=== PATIENT | female | born 1945 | race Caucasian/White ===

== ENCOUNTER 2017-04-28 16:51 | Observation (INO) | payer MEDICARE, BC ==
[2017-04-28] MEDS ORDERED: Sodium Chloride 0.9% 1,000 ML IV ONE (17:08)
--- NOTE | 2017-04-28 17:23 | EDM.PDOC ---
ED HPI GENERAL MEDICAL PROBLEM - General Chief Complaint: Neurological Problem Stated Complaint: UNK Time Seen by Provider: 04/28/17 17:00 Source of Information: Reports: EMS, Family, Old Records History Limitations: Reports: Altered Mental Status - History of Present Illness INITIAL COMMENTS - FREE TEXT/NARRATIVE: HISTORY AND PHYSICAL: History of present illness: Patient is a 72-year-old female who presents to the emergency room via ambulance , family is concerned that she has decreased responsiveness. He shouldn't has a past medical history of Alzheimer's disease and Parkinson's. He is being cared for in her home by her , and granddaughter who frequently comes over to check on both of them. reports that last night she ate a large supper and reported she was very tired and wanted to go to bed early. He put her in bed about 8:30 PM and she was able to sleep throughout the night. This morning when the went to take her to the bathroom patient was unable to stand and was not as verbally responsive as usual. Patient is usually very unsteady on her feet and takes a long time to ambulate, states that she is able to walk normally. Today he was unable to get her out of bed, and she had responded and short simple answers. Patient denies any chest pain, shortness of breath, either, chills or headache. states she has not had any falls where she has hit her head. Last week she did have a fall while going out to the garage where she fell onto her left knee. But was assisted up by her . Since that time she was ambulating with her usual assistance. Patient is resting on the car with her eyes closed with her arms into her chest and knees in a flexed position. She is able to answer in short simple responses. Review of systems: As per history of present illness and below otherwise all systems reviewed and negative. Past medical history: As per history of present illness and as reviewed below otherwise noncontributory. Surgical history: As per history of present illness and as reviewed below otherwise noncontributory. Social history: No reported history of drug or alcohol abuse. Family history: As per history of present illness and as reviewed below otherwise noncontributory. Physical exam: Gen.: [id number] 72-year-old female. Family reports she is way below her baseline. HEENT: Atraumatic, normocephalic, pupils reactive, negative for conjunctival pallor or scleral icterus, mucous membranes moist, throat clear, neck supple, nontender, trachea midline. Lungs: Clear to auscultation, breath sounds equal bilaterally, chest nontender. Heart: S1S2, regular rate and rhythm Abdomen: Soft, nondistended, nontender. Negative for masses. Negative for costovertebral tenderness. Pelvis: Stable nontender. Genitourinary: Deferred. Rectal: Deferred. Extremities: Atraumatic. Neurovascular unremarkable. As a normal variance the patient has crease tone throughout her upper extremities her position of comfort is in one of flexion. Skin: Bruise noted to left knee (healing) Neuro: Awake, alert, oriented. Cranial nerves II through XII unremarkable. Cerebellum unremarkable. Motor and sensory unremarkable throughout. Exam nonfocal. Discussed with family members and patient her lab and CT results. At this time I do not have any definitive cause of her mental status, as her labs are normal besides her TSH. I did discuss with family members if they felt comfortable taking her home, and they were not. The family members I would discuss her case with Dr. Condon, our hospitalist. Dr. Condon agreed to admit this patient for observation. Diagnostics: CBC, CMP, Troponin, UA, EKG, 1 view chest, Head CT Therapeutics: IV Fluids Impression: Altered Mental Status Definitive disposition and diagnosis as appropriate pending reevaluation and review of above. Onset: Today - Related Data Allergies Allergy/AdvReac Type Severity Reaction Status Date / Time No Known Allergies Allergy Verified 04/28/17 17:09 Home Meds: Home Meds Amitriptyline [Elavil] 10 mg PO BEDTIME 04/28/17 [History] Carbidopa/Levodopa [Carbidopa-Levo ER 25-100] 2 tab PO TID 04/28/17 [History] LORazepam 0.5 mg PO BID PRN 04/28/17 [History] Levothyroxine 75 mcg PO DAILY 04/28/17 [History] Memantine HCl 10 mg PO BID 04/28/17 [History] OLANZapine [ZyPREXA] 5 mg PO DAILY 04/28/17 [History] Prochlorperazine [Compazine] 5 mg PO TID PRN 04/28/17 [History] rOPINIRole [Requip] 2 mg PO TID 04/28/17 [History] ED ROS GENERAL - Review of Systems Review Of Systems: ROS reveals no pertinent complaints other than HPI. ED EXAM, GENERAL - Physical Exam Exam: See Below (See dictation) Course - Vital Signs Last Recorded V/S: Last Vital Signs Temp 37.0 C 04/28/17 17:05 Pulse 83 04/28/17 17:05 Resp 18 04/28/17 17:05 BP 150/65 H 04/28/17 17:05 Pulse Ox 95 04/28/17 17:05 - Orders/Labs/Meds Orders: Active Orders 24 hr Category Date Time Status EKG Documentation Completion [RC] STAT Care 04/28/17 17:07 Active Chest 1V Frontal [CR] Stat Exams 04/28/17 17:07 Taken Head wo Cont [CT] Stat Exams 04/28/17 17:08 Taken T4 FREE [CHEM] Stat Lab 04/28/17 17:20 Received Sodium Chloride 0.9% [Normal Saline] 1,000 ml Med 04/28/17 17:08 Active IV STAT Medication Orders Sodium Chloride (Normal Saline) 1,000 mls @ 125 mls/hr IV STAT ONE Stop: 04/29/17 01:07 Last Admin: 04/28/17 17:26 Dose: 125 mls/hr Labs: Laboratory Tests 04/28/17 04/28/17 04/28/17 Range/Units 17:20 17:20 17:20 WBC 6.43 (4.0-11.0) K/uL RBC 4.99 (4.30-5.90) M/uL Hgb 14.4 (12.0-16.0) g/dL Hct 43.4 (36.0-46.0) % MCV 87.0 (80.0-98.0) fL MCH 28.9 (27.0-32.0) pg MCHC 33.2 (31.0-37.0) g/dL RDW Std Deviation 46.6 (28.0-62.0) fl RDW Coeff of Jordi 15 (11.0-15.0) % Plt Count 254 (150-400) K/uL MPV 9.50 (7.40-12.00) fL Neut % (Auto) 69.4 (48.0-80.0) % Lymph % (Auto) 17.4 (16.0-40.0) % Thayer % (Auto) 10.7 (0.0-15.0) % Eos % (Auto) 1.6 (0.0-7.0) % Baso % (Auto) 0.9 (0.0-1.5) % Neut # (Auto) 4.5 (1.4-5.7) K/uL Lymph # (Auto) 1.1 (0.6-2.4) K/uL Thayer # (Auto) 0.7 (0.0-0.8) K/uL Eos # (Auto) 0.1 (0.0-0.7) K/uL Baso # (Auto) 0.1 (0.0-0.1) K/uL Nucleated RBC % 0.0 /100WBC Nucleated RBCs # 0 K/uL Sodium 136 (136-146) mmol/L Potassium 4.1 (3.5-5.1) mmol/L Chloride 105 (98-110) mmol/L Carbon Dioxide 22 (21-31) mmol/L BUN 12 (6.0-23.0) mg/dL Creatinine 0.8 (0.6-1.5) mg/dL Est Cr Clr Drug Dosing TNP Estimated GFR (MDRD) > 60.0 ml/min Glucose 94 (60-110) mg/dL Calcium 9.3 (8.8-10.8) mg/dL Total Bilirubin 0.7 (0.1-1.5) mg/dL AST 16 (5-40) IU/L ALT 15 (8-54) IU/L Alkaline Phosphatase 85 (40-150) Troponin I < 0.10 (0.0-0.29) NG/ML Total Protein 7.5 (6.0-8.0) g/dL Albumin 4.1 (3.4-4.8) g/dL Globulin 3.4 (2.0-3.5) g/dL Albumin/Globulin Ratio 1.2 L (1.3-2.8) TSH 3rd Generation 6.83 H (0.47-5.0) uIU/mL Urine Color Urine Appearance Urine pH (5.0-8.0) Ur Specific Els[place] (1.001-1.035) Urine Protein (NEGATIVE) mg/dL Urine Glucose (UA) (NEGATIVE) mg/dL Urine Ketones (NEGATIVE) mg/dL Urine Occult Blood (NEGATIVE) Urine Nitrite (NEGATIVE) Urine Bilirubin (NEGATIVE) Urine Urobilinogen (<2.0) EU/dL Ur Leukocyte Esterase (NEGATIVE) Urine RBC (0-2/HPF) Urine WBC (0-5/HPF) Ur Epithelial Cells (NONE-FEW) Urine Bacteria (NEGATIVE) 04/28/17 Range/Units 17:45 WBC (4.0-11.0) K/uL RBC (4.30-5.90) M/uL Hgb (12.0-16.0) g/dL Hct (36.0-46.0) % MCV (80.0-98.0) fL MCH (27.0-32.0) pg MCHC (31.0-37.0) g/dL RDW Std Deviation (28.0-62.0) fl RDW Coeff of Jordi (11.0-15.0) % Plt Count (150-400) K/uL MPV (7.40-12.00) fL Neut % (Auto) (48.0-80.0) % Lymph % (Auto) (16.0-40.0) % Thayer % (Auto) (0.0-15.0) % Eos % (Auto) (0.0-7.0) % Baso % (Auto) (0.0-1.5) % Neut # (Auto) (1.4-5.7) K/uL Lymph # (Auto) (0.6-2.4) K/uL Thayer # (Auto) (0.0-0.8) K/uL Eos # (Auto) (0.0-0.7) K/uL Baso # (Auto) (0.0-0.1) K/uL Nucleated RBC % /100WBC Nucleated RBCs # K/uL Sodium (136-146) mmol/L Potassium (3.5-5.1) mmol/L Chloride (98-110) mmol/L Carbon Dioxide (21-31) mmol/L BUN (6.0-23.0) mg/dL Creatinine (0.6-1.5) mg/dL Est Cr Clr Drug Dosing Estimated GFR (MDRD) ml/min Glucose (60-110) mg/dL Calcium (8.8-10.8) mg/dL Total Bilirubin (0.1-1.5) mg/dL AST (5-40) IU/L ALT (8-54) IU/L Alkaline Phosphatase (40-150) Troponin I (0.0-0.29) NG/ML Total Protein (6.0-8.0) g/dL Albumin (3.4-4.8) g/dL Globulin (2.0-3.5) g/dL Albumin/Globulin Ratio (1.3-2.8) TSH 3rd Generation (0.47-5.0) uIU/mL Urine Color YELLOW Urine Appearance CLEAR Urine pH 7.0 (5.0-8.0) Ur Specific [place] 1.010 (1.001-1.035) Urine Protein NEGATIVE (NEGATIVE) mg/dL Urine Glucose (UA) NEGATIVE (NEGATIVE) mg/dL Urine Ketones NEGATIVE (NEGATIVE) mg/dL Urine Occult Blood NEGATIVE (NEGATIVE) Urine Nitrite NEGATIVE (NEGATIVE) Urine Bilirubin NEGATIVE (NEGATIVE) Urine Urobilinogen 0.2 (<2.0) EU/dL Ur Leukocyte Esterase NEGATIVE (NEGATIVE) Urine RBC 0-3 (0-2/HPF) Urine WBC 2-5 (0-5/HPF) Ur Epithelial Cells FEW (NONE-FEW) Urine Bacteria FEW (NEGATIVE) Meds: Medications Generic Name Dose Route Start Last Admin Trade Name Beto PRN Reason Stop Dose Admin Sodium Chloride 1,000 mls @ 125 mls/hr 04/28/17 17:08 04/28/17 17:26 Normal Saline IV 04/29/17 01:07 125 mls/hr STAT ONE Administration Departure - Departure Time of Disposition: 19:10 Disposition: Refer to Observation Clinical Impression: Altered mental status Qualifiers: Altered mental status type: unspecified Qualified Code(s): R41.82 - Altered mental status, unspecified - Discharge Information Forms: ED Department Discharge - My Orders Last 24 Hours: My Active Orders 04/28/17 17:07 EKG Documentation Completion [RC] STAT Chest 1V Frontal [CR] Stat 04/28/17 17:08 Head wo Cont [CT] Stat Sodium Chloride 0.9% [Normal Saline] 1,000 ml IV STAT 04/28/17 17:20 T4 FREE [CHEM] Stat - Assessment/Plan Last 24 Hours: My Active Orders 04/28/17 17:07 EKG Documentation Completion [RC] STAT Chest 1V Frontal [CR] Stat 04/28/17 17:08 Head wo Cont [CT] Stat Sodium Chloride 0.9% [Normal Saline] 1,000 ml IV STAT 04/28/17 17:20 T4 FREE [CHEM] Stat
[2017-04-28 17:54] LABS: CHLORIDE,CL 105 mmol/L (98-110); SODIUM,NA 136 mmol/L (136-146)
[2017-04-28] MEDS: Sodium Chloride 0.9% 1,000 ML IV SCH (23:42)
[2017-04-29] MEDS: Sodium Chloride 0.9% 1,000 ML IV SCH ×2 (02:56→16:40)
[2017-04-29 05:43] LABS: CHLORIDE,CL 108 mmol/L (98-110); SODIUM,NA 139 mmol/L (136-146)
--- NOTE | 2017-04-29 09:08 | PCM.HP ---
H&P History of Present Illness - General Date of Service: 04/29/17 Admit Problem/Dx: Admission Diagnosis/Problem Admission Diagnosis/Problem Altered mental status Source of Information: Family (, Clint, and grand-daughter at bedside.) History Limitations: Reports: Altered Mental Status - History of Present Illness Initial Comments - Free Text/Narative: This 72 year old female with Alzheimers dementia was brought to ED via EMS with concerns of AMS. He reports yesterday she was like a "zombie" she slept most of the day and wouldn't get out of bed. He reports they had been given Ativan for agitation. He reports 04/27 evening he gave her 0.5 mg Ativan tab around supper time due to slight agitation and jitteriness. He reports he helped her to bed around 8:30 and she slept all night and was very hard to arouse in the morning. She would barely open her eyes. He let her sleep, but then became concerned and their grand daughter came over around 4 pm and felt she needed to be brought to the ED for evaluation. They report she has been near baseline, with no concerns of infections. They deny any recent fevers, URI , cough, or complaints of abdominal pain. In the ED labwork all WNL. CXR negative. Head CT revealed no intracranial abnormality. UA negative. She was admitted observation for AMS. PCP, Dr Rahul Baldwin has requested to follow with Dr. Blunt [facility] in [facility], it has become challenging to see Dr. Hines in [place] with travel. - Related Data Allergies/Adverse Reactions: Allergies Allergy/AdvReac Type Severity Reaction Status Date / Time No Known Allergies Allergy Verified 04/28/17 17:09 Home Medications: Home Meds Amitriptyline [Elavil] 10 mg PO BEDTIME 04/28/17 [History] LORazepam 0.5 mg PO BID PRN 04/28/17 [History] Levothyroxine 75 mcg PO DAILY 04/28/17 [History] Memantine HCl 10 mg PO BID 04/28/17 [History] OLANZapine [ZyPREXA] 5 mg PO BEDTIME 04/28/17 [History] Prochlorperazine [Compazine] 5 mg PO TID PRN 04/28/17 [History] rOPINIRole [Requip] 2 mg PO TID 04/28/17 [History] Carbidopa/Levodopa [Sinemet 25-100 mg] 50 - 200 mg PO TID 04/29/17 [History] Past Medical History HEENT History: Reports: Impaired Vision Cardiovascular History: Reports: None. Denies: Blood Clots/VTE/DVT, Hypertension, [facility] Gastrointestinal History: Reports: Chronic Constipation, GERD Genitourinary History: Reports: Urinary Incontinence Neurological History: Reports: Alzheimers Disease, Parkinson's Psychiatric History: Reports: Alzheimers Disease, Anxiety, Dementia Endocrine/Metabolic History: Reports: Hypothyroidism - Infectious Disease History Infectious Disease History: Reports: Other (See Below) Other Infectious Disease History: unknown Social & Family History - Family History Family Medical History: Noncontributory - Tobacco Use Smoking Status *Q: Never Smoker Second Hand Smoke Exposure: No - Caffeine Use Caffeine Use: Reports: Soda - Recreational Drug Use Recreational Drug Use: No - Living Situation & Occupation Living situation: Reports: with Spouse Occupation: Retired H&P Review of Systems - Review of Systems: Review Of Systems: Unable To Obtain (Unable to obtain due to patient's dementia. Does decline pain, but then rambles. Grand-daughter reports this as normal.) Exam - Exam Exam: See Below - Vital Signs Vital Signs: Last Vital Signs Temp 98.6 F 04/29/17 04:00 Pulse 74 04/29/17 04:00 Resp 19 04/29/17 04:00 BP 135/72 04/29/17 04:00 Pulse Ox 95 04/29/17 04:00 Weight: 55.202 kg - Exam General: Alert, Cooperative. No: Oriented HEENT: Conjunctiva Clear, Hearing Intact, Mucosa Moist & Coleta, Posterior Pharynx Clear, Pupils Reactive Neck: Supple, Trachea Midline, 2 Lungs: Clear to Auscultation, Normal Respiratory Effort Cardiovascular: Regular Rate, Regular Rhythm GI/Abdominal Exam: Normal Bowel Sounds Extremities: Normal Inspection, Normal Range of Motion, Non-Tender, No Pedal Edema, Normal Capillary Refill Neuro Extensive - Mental Status: Alert, Normal Mood/Affect, Disorientation to Time, Other (masked facies). No: Oriented x3 Neuro Extensive - Motor, Sensory, Reflexes: CN II-XII Intact, Normal Reflexes. No: Normal Gait (shuffling gait slightly unsteady.) Psychiatric: Alert, Normal Affect, Normal Mood - Patient Data Lab Results Last 24 hrs: Laboratory Results - last 24 hr 04/29/17 04/29/17 Range/Units 04:43 04:43 WBC 5.55 (4.0-11.0) K/uL RBC 4.69 (4.30-5.90) M/uL Hgb 13.5 (12.0-16.0) g/dL Hct 40.8 (36.0-46.0) % MCV 87.0 (80.0-98.0) fL MCH 28.8 (27.0-32.0) pg MCHC 33.1 (31.0-37.0) g/dL RDW Std Deviation 46.2 (28.0-62.0) fl RDW Coeff of Jordi 15 (11.0-15.0) % Plt Count 261 (150-400) K/uL MPV 9.70 (7.40-12.00) fL Nucleated RBC % 0.0 /100WBC Nucleated RBCs # 0 K/uL Sodium 139 (136-146) mmol/L Potassium 4.0 (3.5-5.1) mmol/L Chloride 108 (98-110) mmol/L Carbon Dioxide 23 (21-31) mmol/L BUN 11 (6.0-23.0) mg/dL Creatinine 0.7 (0.6-1.5) mg/dL Est Cr Clr Drug Dosing 61.44 mL/min Estimated GFR (MDRD) > 60.0 ml/min Glucose 81 (60-110) mg/dL Calcium 8.7 L (8.8-10.8) mg/dL Phosphorus 3.2 (2.4-4.7) mg/dL Magnesium 1.8 (1.5-2.3) mEq/L Total Bilirubin 0.7 (0.1-1.5) mg/dL AST 14 (5-40) IU/L ALT 16 (8-54) IU/L Alkaline Phosphatase 79 (40-150) Total Protein 6.5 (6.0-8.0) g/dL Albumin 3.7 (3.4-4.8) g/dL Globulin 2.8 (2.0-3.5) g/dL Albumin/Globulin Ratio 1.3 (1.3-2.8) Result Diagrams: 04/29/17 04:43 04/29/17 04:43 *Q Meaningful Use (ADM) - VTE *Q VTE Criteria *Q: - Stroke *Q Stroke Criteria *Q: - AMI *Q AMI Criteria *Q: - Problem List (1) Altered mental status SNOMED Code(s): 046311947 ICD Code: R41.82 - ALTERED MENTAL STATUS, UNSPECIFIED Status: Resolved Current Visit: Yes Qualifiers: Altered mental status type: somnolence Qualified Code(s): R40.0 - Somnolence (2) Medication reaction SNOMED Code(s): 98122153 ICD Code: T88.7XXA - UNSP ADVERSE EFFECT OF DRUG OR MEDICAMENT, INIT ENCNTR Status: Acute Current Visit: Yes Qualifiers: Encounter type: initial encounter Qualified Code(s): T88.7XXA - Unspecified adverse effect of drug or medicament, initial encounter (3) Alzheimer disease SNOMED Code(s): 46051693 ICD Code: G30.9 - ALZHEIMER'S DISEASE, UNSPECIFIED Status: Chronic Current Visit: Yes Qualifiers: Alzheimer's disease onset: early-onset Dementia behavioral disturbance: without behavioral disturbance Qualified Code(s): G30.0 - Alzheimer's disease with early onset; F02.80 - Dementia in other diseases classified elsewhere without behavioral disturbance (4) Parkinson disease SNOMED Code(s): 75905618 ICD Code: G20 - PARKINSON'S DISEASE Status: Chronic Current Visit: Yes Problem List Initiated/Reviewed/Updated: Yes Orders Last 24hrs: Active Orders 24 hr Category Date Time Status OT Evaluation and Treatment [CONS] Routine Cons 04/29/17 08:00 Active PT Evaluation and Treatment [CONS] Routine Cons 04/29/17 08:00 Active Regular Diet [DIET] Diet 04/29/17 Breakfast Active CULTURE URINE [RM] Stat Lab 04/28/17 17:45 Received Sodium Chloride 0.9% [Normal Saline] 1,000 ml Med 04/28/17 20:00 Active IV ASDIRECTED Medication Orders Sodium Chloride (Normal Saline) 1,000 mls @ 75 mls/hr IV ASDIRECTED PEREZ Last Admin: 04/29/17 02:56 Dose: 75 mls/hr Infusion: 04/29/17 02:56 Dose: 75 mls/hr Admin: 04/28/17 23:42 Dose: 75 mls/hr Assessment/Plan Comment:: This 72 year old female admitted with AMS 1. AMS: nearly resolved. Family rpeorts slightly confusion still but near baseline mental status. AMS likely due to administration of Ativan. Family told to dispose of this medication, if something is needed for agitation, Haldol may be better option. PT/OT to evaluate and treat, wants to take Johana back home, with home care. 2. Alzheimer and Parkinson: Continue Home medications VTE prophylaxis: SCDs Dispo: Likely discharge in am.
[2017-04-29] MEDS ORDERED: LORazepam 1 MG Tab PO PRN (09:33)
[2017-04-29] MEDS ORDERED: OLANZapine 5 MG Tab PO SCH (09:45)
--- NOTE | 2017-04-29 10:12 | CT ---
EXAM DATE: 04/28/17 PATIENT'S AGE: 72 Patient: ERWIN BRIGGS Facility: [place], [place] Site . Site : 1945 Study: CT Head [id number]/13/2017 6:10:06 PM Ordering Physician: Doctor Parra Final Report: INDICATION: altered mental status CT HEAD WITHOUT CONTRAST TECHNIQUE: Multiple axial CT images were performed through the head without intravenous contrast administration. COMPARISON: No previous studies are currently available for comparison. FINDINGS: No acute intracranial hemorrhage is identified. No extra-axial collections are evident and there is no mass effect or midline shift. There is mild diffuse age-related brain atrophy. Ventricular size and configuration are within normal limits for the patient`s age. Wu-white differentiation is within normal limits. There is very mild patchy hypodensity in the periventricular white matter, a nonspecific finding which most likely reflects chronic small vessel ischemic change. Osseous structures are within normal limits and no fractures are seen. Included portions of the paranasal sinuses and mastoid air cells are normally aerated. IMPRESSION: 1. No acute intracranial abnormality identified. 2. Mild age-related brain atrophy and white matter hypodensity consistent with chronic small vessel ischemic change. VERO CUMMINGS MD [employer] Dictated by: Todd Cummings MD @ 04/28/2017 18:28:12 (Electronic Signature) Report Signed by Proxy. [facility]
--- NOTE | 2017-04-29 10:13 | CR ---
EXAM DATE: 04/28/17 PATIENT'S AGE: 72 Patient: ERWIN BRIGGS Facility: [place], [place] Site . Site : 1945 Study: XRay Chest [id number]/13/2017 6:19:59 PM Ordering Physician: Doctor Parra Final Report: INDICATION: decreased LOC CHEST, ONE VIEW An AP radiograph of the chest was performed. Comparison: No previous studies are currently available for comparison. The lungs appear clear and no pleural effusions are identified. Heart is borderline enlarged. The pulmonary vasculature appears normal, as do the visualized bones. IMPRESSION: No acute intrathoracic abnormality identified. VERO CUMMINGS MD [employer] Dictated by: Todd Cummings MD @ 04/28/2017 18:26:06 (Electronic Signature) Report Signed by Proxy. [facility]
[2017-04-29] MEDS ORDERED: Acetaminophen 325 MG Tab PO PRN (10:22)
[2017-04-29] MEDS ORDERED: Ondansetron 4 MG/2 ML SDV IVPUSH PRN (10:22)
[2017-04-29] MEDS: Memantine 10 MG Tab PO SCH ×2 (10:23→21:30)
[2017-04-29] MEDS: Carbidopa/Levodopa 25-100 MG Tab PO SCH ×2 (13:47→22:16)
[2017-04-29] MEDS: rOPINIRole 1 MG Tab PO SCH ×2 (13:48→22:13)
[2017-04-29] MEDS: Amitriptyline 10 MG Tab PO SCH (21:30)
[2017-04-29] MEDS: OLANZapine 5 MG Tab PO SCH (21:30)
[2017-04-30] MEDS: Carbidopa/Levodopa 25-100 MG Tab PO SCH ×3 (06:02→21:42)
[2017-04-30] MEDS: rOPINIRole 1 MG Tab PO SCH ×3 (06:02→21:41)
[2017-04-30] MEDS: Memantine 10 MG Tab PO SCH ×2 (08:05→21:41)
[2017-04-30] MEDS: Levothyroxine 75 MCG Tab PO SCH (08:05)
[2017-04-30] MEDS ORDERED: Sodium Chloride 0.9% 500 ML IV SCH (08:15)
[2017-04-30] MEDS: Sodium Chloride 0.9% 1,000 ML IV SCH ×2 (08:54→22:46)
--- NOTE | 2017-04-30 14:06 | PCM.DCSUM1 ---
Discharge Summary - Hospital Course Brief History: This 72 year old female with Alzheimers dementia was brought to ED via EMS with concerns of AMS. He reports yesterday she was like a "zombie" she slept most of the day and wouldn't get out of bed. He reports they had been given Ativan for agitation. He reports 04/27 evening he gave her 0.5 mg Ativan tab around supper time due to slight agitation and jitteriness. He reports he helped her to bed around 8:30 and she slept all night and was very hard to arouse in the morning. She would barely open her eyes. He let her sleep , but then became concerned and their grand daughter came over around 4 pm and felt she needed to be brought to the ED for evaluation. They report she has been near baseline, with no concerns of infections. They deny any recent fevers , URI, cough, or complaints of abdominal pain. In the ED labwork all WNL. CXR negative. Head CT revealed no intracranial abnormality. UA negative. She was admitted observation for AMS. - Discharge Data Discharge Date: 04/30/17 Discharge Disposition: Home, Home Health Agency 06 Condition: Good - Discharge Diagnosis/Problem(s) (1) Altered mental status SNOMED Code(s): 970322069 ICD Code: R41.82 - ALTERED MENTAL STATUS, UNSPECIFIED Status: Resolved Current Visit: Yes Qualifiers: Altered mental status type: somnolence Qualified Code(s): R40.0 - Somnolence (2) Medication reaction SNOMED Code(s): 80054876 ICD Code: T88.7XXA - UNSP ADVERSE EFFECT OF DRUG OR MEDICAMENT, INIT ENCNTR Status: Acute Current Visit: Yes Qualifiers: Encounter type: initial encounter Qualified Code(s): T88.7XXA - Unspecified adverse effect of drug or medicament, initial encounter (3) Alzheimer disease SNOMED Code(s): 63695474 ICD Code: G30.9 - ALZHEIMER'S DISEASE, UNSPECIFIED Status: Chronic Current Visit: Yes Qualifiers: Alzheimer's disease onset: early-onset Dementia behavioral disturbance: without behavioral disturbance Qualified Code(s): G30.0 - Alzheimer's disease with early onset; F02.80 - Dementia in other diseases classified elsewhere without behavioral disturbance (4) Parkinson disease SNOMED Code(s): 45151286 ICD Code: G20 - PARKINSON'S DISEASE Status: Chronic Current Visit: Yes - Patient Summary/Data Consults: Consultations 04/29/17 08:00 OT Evaluation and Treatment [CONS] Routine PT Evaluation and Treatment [CONS] Routine - Patient Instructions Diet: Regular Diet as Tolerated Activity: As Tolerated Showering/Bathing: May Shower Notify Provider of: Fever, Increased Pain, Swelling and Redness, Drainage, Nausea and/or Vomiting - Discharge Plan Prescriptions/Med Rec: Haloperidol [Haldol] 0.5 mg PO BID PRN #10 tab PRN Reason: Agitation Home Medications: Home Meds Amitriptyline [Elavil] 10 mg PO BEDTIME 04/28/17 [History] LORazepam 0.5 mg PO BID PRN 04/28/17 [History] Levothyroxine 75 mcg PO DAILY 04/28/17 [History] Memantine HCl 10 mg PO BID 04/28/17 [History] OLANZapine [ZyPREXA] 5 mg PO BEDTIME 04/28/17 [History] Prochlorperazine [Compazine] 5 mg PO TID PRN 04/28/17 [History] rOPINIRole [Requip] 2 mg PO TID 04/28/17 [History] Carbidopa/Levodopa [Sinemet 25-100 mg] 50 - 200 mg PO TID 04/29/17 [History] Haloperidol [Haldol] 0.5 mg PO BID PRN #10 tab 04/30/17 [Rx] Forms: ED Department Discharge Referrals: PCP,None [Ordering Only Provider] - (Follow up with Rahul and arrange appointment with Dr. duran ) - Discharge Summary/Plan Comment DC Time >30 min.: No Discharge Summary/Plan Comment: Discharge Diagnoses: AMS-resolved Alzheimer's disease Parkinson disease Dementia Johana was admitted and monitored overnight. AMS likely secondary to Ativan administration. Patient is near baseline, family feels overnight she became more confused due to lack of sleep. She was up with ambulating with PT, doing well with FWW. She is near baseline with this. would like to take her home. He was advised he should not be leaving her alone at home. We have provided resources for [facility], [facility] and will also provide Home Health Services. The grand-daughter has reported drastic decline the last month, she is becoming more angry and defiant. At this time the declines wanting to take her the [facility]. All labwork is WNL and VSS. She will be discharged home today with family. We are arranging for her to transfer care to Dr. Duran, so they do not need to travel to [place], as this is becoming harder for them to do with her mental state and physical abilities. We will order for Home health, she is in need of skilled assessment to monitor medications and vitals. She would also benefit from PT for unsteady gait as well. She is home bound and is in need of full assistance to leave the house, assistance of a caregiver and assistive device. Her PCP, Dr Kay will follow plan of care. They are encouraged to return to ED or clinic if concerns should arise. Family is requesting medication to help with agitation if needed, they do not want Ativan anymore. Discussed with Dr. Young, will provide Haldol 0.5 mg BID PRN for agitation, they were educated regarding side effects and it may worsen Parkinsons. They understood and will only be using if really needed for agitation. - General Info Date of Service: 04/30/17 Admission Dx/Problem (Free Text: Admission Diagnosis/Problem Admission Diagnosis/Problem Altered mental status Subjective Update: Alert this morning, slightly confused. Denies any pain or SOB. Spoke with grand daughter and , after allowing her to rest some this morning and afternoon they feel safe taking her home. Realizing some confusion may be due to unfamiliar environment and people within the hospital. Functional Status: Reports: Pain Controlled, Tolerating Diet, Ambulating, Urinating - Review of Systems General: Reports: No Symptoms. Denies: Fever Pulmonary: Reports: No Symptoms. Denies: Shortness of Breath Cardiovascular: Reports: No Symptoms. Denies: Chest Pain Gastrointestinal: Reports: No Symptoms. Denies: Abdominal Pain, Nausea, Vomiting Neurological: Reports: Confusion - Patient Data Vitals - Most Recent: Last Vital Signs Temp 98.2 F 04/30/17 12:38 Pulse 82 04/30/17 12:38 Resp 16 04/30/17 12:38 BP 126/69 04/30/17 12:38 Pulse Ox 97 04/30/17 12:38 Weight - Most Recent: 55.202 kg I&O - Last 24 hours: Intake & Output 09/14/17 09/15/17 09/15/17 22:59 06:59 14:59 Intake Total 1687 777 4875 Output Total 300 Balance 7489 [id number] Med Orders - Current: Current Medications Acetaminophen (Tylenol) 650 mg PO Q4H PRN PRN Reason: Pain Amitriptyline HCl (Elavil) 10 mg PO BEDTIME [facility] Last Admin: 04/29/17 21:30 Dose: 10 mg Carbidopa/Levodopa (Sinemet 25-100 Mg) 2 tab PO TID [facility] Last Admin: 04/30/17 06:02 Dose: 2 tab Sodium Chloride (Normal Saline) 1,000 mls @ 75 mls/hr IV ASDIRECTED [facility] Last Admin: 04/30/17 08:54 Dose: 75 mls/hr Sodium Chloride (Normal Saline) 500 mls @ 999 mls/hr IV .BOLUS [facility] Last Admin: 04/30/17 08:20 Dose: 999 mls/hr Levothyroxine Sodium (Levothyroxine) 75 mcg PO DAILY@0730 [facility] Last Admin: 04/30/17 08:05 Dose: 75 mcg Lorazepam (Ativan) 0.5 mg PO BID PRN PRN Reason: Anxiety Memantine (Namenda) 10 mg PO BID [facility] Last Admin: 04/30/17 08:05 Dose: 10 mg Olanzapine (Zyprexa) 5 mg PO BEDTIME [facility] Last Admin: 04/29/17 21:30 Dose: 5 mg Ondansetron HCl (Zofran) 4 mg IVPUSH Q4H PRN PRN Reason: Nausea Ropinirole HCl (Requip) 2 mg PO TID [facility] Last Admin: 04/30/17 06:02 Dose: 2 mg Discontinued Medications Sodium Chloride (Normal Saline) 1,000 mls @ 125 mls/hr IV STAT ONE Stop: 04/29/17 01:07 Last Infusion: 04/28/17 21:20 Dose: 75 mls/hr Olanzapine (Zyprexa) 5 mg PO DAILY [facility] Last Admin: 04/29/17 10:23 Dose: Not Given - Exam General: Reports: Alert, Cooperative, No Acute Distress Lungs: Reports: Clear to Auscultation, Normal Respiratory Effort Cardiovascular: Reports: Regular Rate, Regular Rhythm GI/Abdominal Exam: Normal Bowel Sounds, Soft, Non-Tender, No Organomegaly, No Distention, No Abnormal Bruit, No Mass, Pelvis Stable Neurological: Reports: No New Focal Deficit Psy/Mental Status: Reports: Alert, Normal Affect, Normal Mood *Q Meaningful Use (DIS) - VTE *Q VTE Criteria *Q: - Stroke *Q Stroke Criteria *Q: - AMI *Q AMI Criteria *Q:
[2017-04-30] MEDS: Amitriptyline 10 MG Tab PO SCH (21:41)
[2017-04-30] MEDS: OLANZapine 5 MG Tab PO SCH (21:41)
[2017-05-01] MEDS: rOPINIRole 1 MG Tab PO SCH (06:03)
[2017-05-01] MEDS: Carbidopa/Levodopa 25-100 MG Tab PO SCH (06:06)
[2017-05-01] MEDS: Levothyroxine 75 MCG Tab PO SCH (06:46)
[2017-05-01] MEDS: Memantine 10 MG Tab PO SCH (08:56)
[2017-05-01 09:28] VITALS: BP 90/52
== END 2017-05-01 10:35 | disposition home health service (06) ==
LOC: MW.ED 16:51 → MW.MS 19:11
PROVIDERS: ADMIT Internal Medicine; ATTEND Internal Medicine
DX: R41.82 Altered mental status, unspecified (principal); G30.9 Alzheimer's disease, unspecified; G20 Parkinson's disease; T88.7XXA Unspecified adverse effect of drug or medicament, initial encounter; K59.00 Constipation, unspecified; K21.9 Gastro-esophageal reflux disease without esophagitis; F41.9 Anxiety disorder, unspecified; E03.9 Hypothyroidism, unspecified; Z79.899 Other long term (current) drug therapy
CPT/HCPCS: 36415; 70450; 71010; 80053; 81001; 83735; 84100; 84439; 84443; 84484; 85025; 85027; 87086; 96360; 96361; 97162; 99285; A9270; J7040; 99283; G0378

== ENCOUNTER 2017-06-01 19:43 | Emergency (ER) | payer MEDICARE, BC ==
[2017-06-01] MEDS ORDERED: Ondansetron 4 MG/2 ML SDV IVPUSH ONE (21:03)
[2017-06-01] MEDS ORDERED: Sodium Chloride 0.9% 1,000 ML IV SCH (21:15)
[2017-06-01 21:53] LABS: CHLORIDE,CL 107 mmol/L (98-110); SODIUM,NA 138 mmol/L (136-146)
[2017-06-01] MEDS ORDERED: Metoclopramide 10 MG/2 ML SDV IV ONE (23:51)
--- NOTE | 2017-06-02 00:18 | EDM.PDOC ---
ED HPI GENERAL MEDICAL PROBLEM - General Chief Complaint: Abdominal Pain Stated Complaint: PT HAS STOMACH PAINS Time Seen by Provider: 06/02/17 00:14 Source of Information: Reports: Patient, Family - History of Present Illness INITIAL COMMENTS - FREE TEXT/NARRATIVE: HISTORY AND PHYSICAL: History of present illness: [Patient presents with intermittent colicky abdominal pain, on arrival pain had resolved she's had been having some problems with constipation at home she did have a bowel movement today that was quite hard she is inactive secondary to dementia. Her primary care Dr. Blunt has been working on some bowel care as she has been on MiraLAX in the past. No fever nausea vomiting chills sweats no chest pain shortness breath headache dizziness or palpitation no actual bowel pain or complaint at this time 0 out of 10 pain No apparent distress ] Review of systems: As per history of present illness and below otherwise all systems reviewed and negative. Past medical history: As per history of present illness and as reviewed below otherwise noncontributory. Surgical history: As per history of present illness and as reviewed below otherwise noncontributory. Social history: No reported history of drug or alcohol abuse. Family history: As per history of present illness and as reviewed below otherwise noncontributory. Physical exam: HEENT: Atraumatic, normocephalic, pupils reactive, negative for conjunctival pallor or scleral icterus, mucous membranes moist, throat clear, neck supple, nontender, trachea midline. Lungs: Clear to auscultation, breath sounds equal bilaterally, chest nontender. Heart: S1S2, regular, negative for clicks, rubs, or JVD. Abdomen: Soft, nondistended, nontender. Negative for masses or hepatosplenomegaly. Negative for costovertebral tenderness. Pelvis: Stable nontender. Genitourinary: Deferred. Rectal: Deferred. Extremities: Atraumatic, negative for cords or calf pain. Neurovascular unremarkable. Neuro: Awake, alert, oriented. Cranial nerves II through XII unremarkable. Cerebellum unremarkable. Motor and sensory unremarkable throughout. Exam nonfocal. Diagnostics: []Lab as below Abdomen flat and upright Therapeutics: [Normal saline 1 25 mL per hour Zofran 8 mg IV Reglan 5 mg IV ] Impression: [Colicky abdominal pain Fecal retention] Definitive disposition and diagnosis as appropriate pending reevaluation and review of above. Left Upper Abdomen Pain Score (Numeric/FACES): 8 - Related Data Allergies Allergy/AdvReac Type Severity Reaction Status Date / Time No Known Allergies Allergy Verified 06/01/17 20:25 Home Meds: Home Meds Amitriptyline [Elavil] 10 mg PO BEDTIME 04/28/17 [History] LORazepam 0.5 mg PO BID PRN 04/28/17 [History] Levothyroxine 75 mcg PO DAILY 04/28/17 [History] Memantine HCl 10 mg PO BID 04/28/17 [History] OLANZapine [ZyPREXA] 5 mg PO BEDTIME 04/28/17 [History] Prochlorperazine [Compazine] 5 mg PO TID PRN 04/28/17 [History] rOPINIRole [Requip] 2 mg PO TID 04/28/17 [History] Carbidopa/Levodopa [Sinemet 25-100 mg] 50 - 200 mg PO TID 04/29/17 [History] Haloperidol [Haldol] 0.5 mg PO BID PRN #10 tab 04/30/17 [Rx] Past Medical History HEENT History: Reports: Impaired Vision, Other (See Below) Other HEENT History: corrective glasses Cardiovascular History: Reports: High Cholesterol Respiratory History: Reports: None Gastrointestinal History: Reports: Chronic Constipation, GERD Genitourinary History: Reports: Urinary Incontinence [employer] History: Reports: Musculoskeletal History: Reports: None Neurological History: Reports: Alzheimers Disease, Parkinson's Psychiatric History: Reports: Alzheimers Disease, Anxiety, Dementia Endocrine/Metabolic History: Reports: Hypothyroidism Hematologic History: Reports: None Oncologic (Cancer) History: Reports: None - Infectious Disease History Infectious Disease History: Reports: Other (See Below) Other Infectious Disease History: unknown - Past Surgical History Cardiovascular Surgical History: Reports: None Female Surgical History: Reports: None Musculoskeletal Surgical History: Reports: None Social & Family History - Family History Family Medical History: Noncontributory - Tobacco Use Smoking Status *Q: Never Smoker Second Hand Smoke Exposure: No - Caffeine Use Caffeine Use: Reports: Soda Caffeine Use Comment: very seldom coffee, occassonally tea - Recreational Drug Use Recreational Drug Use: No - Living Situation & Occupation Living situation: Reports: with Spouse Occupation: Retired ED ROS GENERAL - Review of Systems Review Of Systems: ROS reveals no pertinent complaints other than HPI. ED EXAM, GENERAL - Physical Exam Exam: See Below Course - Vital Signs Last Recorded V/S: Last Vital Signs Temp 36.7 C 06/01/17 20:42 Pulse 92 06/01/17 20:42 Resp 20 06/01/17 20:42 BP 113/80 06/01/17 20:42 Pulse Ox 97 06/01/17 20:42 - Orders/Labs/Meds Orders: Active Orders 24 hr Category Date Time Status Abdomen 2V AP Flat Upright [CR] Stat Exams 06/01/17 22:08 Taken UA W/MICROSCOPIC [URIN] Stat Lab 06/01/17 21:03 Uncollected Sodium Chloride 0.9% [Normal Saline] 1,000 ml Med 06/01/17 21:15 Active IV STAT Medication Orders Sodium Chloride (Normal Saline) 1,000 mls @ 125 mls/hr IV STAT [facility] Last Admin: 06/01/17 21:52 Dose: 125 mls/hr Labs: Laboratory Tests 06/01/17 06/01/17 06/01/17 Range/Units 21:25 21:25 21:25 WBC 5.48 (4.0-11.0) K/uL RBC 4.32 (4.30-5.90) M/uL Hgb 12.5 (12.0-16.0) g/dL Hct 38.1 (36.0-46.0) % MCV 88.2 (80.0-98.0) fL MCH 28.9 (27.0-32.0) pg MCHC 32.8 (31.0-37.0) g/dL RDW Std Deviation 47.1 (28.0-62.0) fl RDW Coeff of Jordi 15 (11.0-15.0) % Plt Count 215 (150-400) K/uL MPV 9.50 (7.40-12.00) fL Neut % (Auto) 64.3 (48.0-80.0) % Lymph % (Auto) 21.7 (16.0-40.0) % Whitley % (Auto) 10.9 (0.0-15.0) % Eos % (Auto) 2.2 (0.0-7.0) % Baso % (Auto) 0.9 (0.0-1.5) % Neut # (Auto) 3.5 (1.4-5.7) K/uL Lymph # (Auto) 1.2 (0.6-2.4) K/uL Whitley # (Auto) 0.6 (0.0-0.8) K/uL Eos # (Auto) 0.1 (0.0-0.7) K/uL Baso # (Auto) 0.1 (0.0-0.1) K/uL Nucleated RBC % 0.0 /100WBC Nucleated RBCs # 0 K/uL Sodium 138 (136-146) mmol/L Potassium 4.4 (3.5-5.1) mmol/L Chloride 107 (98-110) mmol/L Carbon Dioxide 24 (21-31) mmol/L BUN 17 (6.0-23.0) mg/dL Creatinine 0.8 (0.6-1.5) mg/dL Est Cr Clr Drug Dosing 50.80 mL/min Estimated GFR (MDRD) > 60.0 ml/min Glucose 90 (60-110) mg/dL Calcium 9.0 (8.8-10.8) mg/dL Total Bilirubin 0.2 (0.1-1.5) mg/dL AST 12 (5-40) IU/L ALT 9 (8-54) IU/L Alkaline Phosphatase 68 (40-150) Troponin I < 0.10 (0.0-0.29) NG/ML Total Protein 6.5 (6.0-8.0) g/dL Albumin 3.5 (3.4-4.8) g/dL Globulin 3.0 (2.0-3.5) g/dL Albumin/Globulin Ratio 1.2 L (1.3-2.8) Amylase 59 (10-90) U/L Lipase 18 (7-80) U/L Meds: Medications Generic Name Dose Route Start Last Admin Trade Name Freq PRN Reason Stop Dose Admin Sodium Chloride 1,000 mls @ 125 mls/hr 06/01/17 21:15 06/01/17 21:52 Normal Saline IV 125 mls/hr STAT [facility] Administration Discontinued Medications Generic Name Dose Route Start Last Admin Trade Name Freq PRN Reason Stop Dose Admin Metoclopramide HCl 5 mg 06/01/17 23:51 Reglan IV 06/01/17 23:52 ONETIME ONE Ondansetron HCl 8 mg 06/01/17 21:03 06/01/17 21:52 Zofran IVPUSH 06/01/17 21:04 Not Given ONETIME ONE Departure - Departure Time of Disposition: 00:17 Disposition: Home, Self-Care 01 Condition: Good Clinical Impression: Constipation - Discharge Information Referrals: PCP,None [Primary Care Provider] - Additional Instructions: Bowel care as discussed MiraLAX, Gas-X, fleets enemas as needed, glycerin suppositories as needed Reglan 5 mg by mouth 3 times a day when necessary #30 no refill Return if symptoms persist or worsen or new concerning symptoms develop Follow-up with primary care in 2 weeks seen sooner as needed The following information is given to patients seen in the emergency department who are being discharged to home. This information is to outline your options for follow-up care. We provide all patients seen in our emergency department with a follow-up referral. The need for follow-up, as well as the timing and circumstances, are variable depending upon the specifics of your emergency department visit. If you don't have a primary care physician on staff, we will provide you with a referral. We always advise you to contact your personal physician following an emergency department visit to inform them of the circumstance of the visit and for follow-up with them and/or the need for any referrals to a consulting specialist. The emergency department will also refer you to a specialist when appropriate. This referral assures that you have the opportunity for follow-up care with a specialist. All of these measure are taken in an effort to provide you with optimal care, which includes your follow-up. Under all circumstances we always encourage you to contact your private physician who remains a resource for coordinating your care. When calling for follow-up care, please make the office aware that this follow-up is from your recent emergency room visit. If for any reason you are refused follow-up, please contact the [facility] emergency department at and asked to speak to the emergency department charge nurse. - My Orders Last 24 Hours: My Active Orders 06/01/17 21:03 UA W/MICROSCOPIC [URIN] Stat 06/01/17 21:15 Sodium Chloride 0.9% [Normal Saline] 1,000 ml IV STAT 06/01/17 22:08 Abdomen 2V AP Flat Upright [CR] Stat - Assessment/Plan Last 24 Hours: My Active Orders 06/01/17 21:03 UA W/MICROSCOPIC [URIN] Stat 06/01/17 21:15 Sodium Chloride 0.9% [Normal Saline] 1,000 ml IV STAT 06/01/17 22:08 Abdomen 2V AP Flat Upright [CR] Stat
[2017-06-02 06:57] VITALS: BP 111/58
--- NOTE | 2017-06-02 11:25 | CR ---
EXAM DATE: 06/01/17 PATIENT'S AGE: 72 Patient: ERWIN BRIGGS Facility: [place], [place] Site . Site : [id number] Study: XRay Abdomen [id number]/17/2017 11:40:26 PM Ordering Physician: Shavonne Garcia Final Report: INDICATION: Left upper quadrant pain, constipation TECHNIQUE: Abdomen 2 view. COMPARISON: None FINDINGS: Bowel: Colonic fecal retention. Soft tissues: No sign of free air. No sign of soft tissue mass. No suspicious calcifications. Bones: Unremarkable for age. IMPRESSION: Colonic fecal retention. Dictated by Edgardo López MD @ 06/01/2017 11:48:40 PM Dictated by: Edgardo López MD @ 06/01/2017 23:48:47 (Electronic Signature) Report Signed by Proxy. [facility]
== END 2017-06-02 00:46 | disposition home or self-care (01) ==
LOC: MW.ED 19:43
DX: K59.00 Constipation, unspecified (principal); E78.00 Pure hypercholesterolemia, unspecified; K21.9 Gastro-esophageal reflux disease without esophagitis; G30.9 Alzheimer's disease, unspecified; F02.80 Dementia in other diseases classified elsewhere, unspecified severity, without behavioral disturbance, psychotic disturbance, mood disturbance, and anxiety; E03.9 Hypothyroidism, unspecified; Z79.899 Other long term (current) drug therapy
CPT/HCPCS: 36415; 74020; 80053; 82150; 83690; 84484; 85025; 96360; 96361; 99284; J7040; 99283

== ENCOUNTER 2018-01-28 10:41 | Observation (INO) | payer MEDICARE, BC ==
[2018-01-28] MEDS ORDERED: Sodium Chloride 0.9% 1,000 ML IV ONE (10:45)
--- NOTE | 2018-01-28 11:06 | EDM.PDOC ---
ED HPI GENERAL MEDICAL PROBLEM - General Chief Complaint: General Stated Complaint: UNK ISSUES Time Seen by Provider: 01/28/18 10:46 Source of Information: Reports: Patient History Limitations: Reports: No Limitations - History of Present Illness INITIAL COMMENTS - FREE TEXT/NARRATIVE: HISTORY AND PHYSICAL: History of present illness: Patient is a 72-year-old female who is brought to the emergency room by her and caregiver with concerns of decreased mental status and "just not acting right". She does have a history of Alzheimer's dementia and Parkinson's and does receive home care on a routine basis (by , granddaughter, and caregiver). Family reports that the patient was alert and appropriate per self last night but this morning she did not want to get up into her wheelchair. They believe she has a decreased level of responsiveness and wanted her evaluated today. Patient has been seen a few times previously in our emergency room and has been admitted for similar concerns and complaints. No new injury, recent illness, falls or trauma. Denies any fever, chills, chest pain, SOB, or cough. Denies any abdominal pain, nausea, vomiting, or diarrhea/ constipation. Review of systems: As per history of present illness and below otherwise all systems reviewed and negative. Past medical history: As per history of present illness and as reviewed below otherwise noncontributory. Surgical history: As per history of present illness and as reviewed below otherwise noncontributory. Social history: No reported history of drug or alcohol abuse. Family history: As per history of present illness and as reviewed below otherwise noncontributory. Physical exam: General: Well-developed and well-nourished 72-year-old female. Flat appearing, nonverbal. Nontoxic appearing and in no acute distress. HEENT: Atraumatic, normocephalic, pupils equal and reactive bilaterally, negative for conjunctival pallor or scleral icterus, mucous membranes moist, throat clear, neck supple, nontender, trachea midline. No drooling or trismus noted. No meningeal signs Lungs: Clear to auscultation, breath sounds equal bilaterally, chest nontender. Heart: S1S2, regular rate and rhythm without overt murmur Abdomen: Soft, nondistended, nontender. Negative for masses or hepatosplenomegaly. Negative for costovertebral tenderness. Pelvis: Stable nontender. Genitourinary: Deferred. Rectal: Deferred. Skin: Colitis area of redness to the right external ear into the soft tissue area (no mastoid tenderness or trismus). Otherwise skin is intact, warm, dry. No lesions or rashes noted. Extremities: Atraumatic, negative for cords or calf pain. Neurovascular unremarkable. Neuro: Awake, alert, oriented. Cranial nerves II through XII unremarkable. Cerebellum unremarkable. Motor and sensory unremarkable throughout. Exam nonfocal. Notes: Primary care provider is Dr. Kay Labs are unremarkable at this time with the exception of an elevated TSH at 8.5 (previous TSH on 01/30 was 6.83). Still waiting for urinalysis. The family at the bedside state that they are uncomfortable with her being discharged to home. Chief concern of an area of redness to her right external ear which I did evaluate (appears like contact dermatitis). The caregiver states that it almost appears rash like and believes it could be from a new detergent that she has used. I will inform Dr. Ford of this. Dr. Ford was consulted on this case and states he will come and talk with the family and evaluate the patient. Diagnostics: CBC, CMP, troponin, EKG, one view chest, UA, head CT Therapeutics: IV fluid Impression: Altered mental status Plan: Observation admission per Dr Ford Definitive disposition and diagnosis as appropriate pending reevaluation and review of above. Onset: Today - Related Data Allergies Allergy/AdvReac Type Severity Reaction Status Date / Time No Known Allergies Allergy Verified 06/01/17 20:25 Home Meds: Home Meds Amitriptyline [Elavil] 10 mg PO BEDTIME 04/28/17 [History] LORazepam 0.5 mg PO BID PRN 04/28/17 [History] Levothyroxine 75 mcg PO DAILY 04/28/17 [History] Memantine HCl 10 mg PO BID 04/28/17 [History] OLANZapine [ZyPREXA] 5 mg PO BEDTIME 04/28/17 [History] Prochlorperazine [Compazine] 5 mg PO TID PRN 04/28/17 [History] rOPINIRole [Requip] 2 mg PO TID 04/28/17 [History] Carbidopa/Levodopa [Sinemet 25-100 mg] 50 - 200 mg PO TID 04/29/17 [History] Haloperidol [Haldol] 0.5 mg PO BID PRN #10 tab 04/30/17 [Rx] Past Medical History HEENT History: Reports: Impaired Vision, Other (See Below) Other HEENT History: corrective glasses Cardiovascular History: Reports: High Cholesterol Respiratory History: Reports: None Gastrointestinal History: Reports: Chronic Constipation, GERD Genitourinary History: Reports: Urinary Incontinence 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: Musculoskeletal History: Reports: None Neurological History: Reports: Alzheimers Disease, Parkinson's Psychiatric History: Reports: Alzheimers Disease, Anxiety, Dementia Endocrine/Metabolic History: Reports: Hypothyroidism Hematologic History: Reports: None Oncologic (Cancer) History: Reports: None - Infectious Disease History Infectious Disease History: Reports: Other (See Below) Other Infectious Disease History: unknown - Past Surgical History Cardiovascular Surgical History: Reports: None Female Surgical History: Reports: None Musculoskeletal Surgical History: Reports: None Social & Family History - Family History Family Medical History: Noncontributory - Caffeine Use Caffeine Use: Reports: Soda Caffeine Use Comment: very seldom coffee, occassonally tea - Living Situation & Occupation Living situation: Reports: with Spouse Occupation: Retired ED ROS GENERAL - Review of Systems Review Of Systems: ROS reveals no pertinent complaints other than HPI. ED EXAM, GENERAL - Physical Exam Exam: See Below (See dictation) Course - Vital Signs Last Recorded V/S: Last Vital Signs Temp 97.6 F 01/28/18 10:45 Pulse 80 01/28/18 10:45 Resp 20 01/28/18 10:45 BP 111/70 01/28/18 10:45 Pulse Ox 95 01/28/18 10:45 - Orders/Labs/Meds Orders: Active Orders 24 hr Category Date Time Status EKG Documentation Completion [RC] STAT Care 01/28/18 10:45 Active Oxygen Therapy [RC] PRN Care 01/28/18 13:49 Active Up ad Heather [RC] ASDIRECTED Care 01/28/18 13:49 Active VTE/DVT Education [RC] PER UNIT ROUTINE Care 01/28/18 13:49 Active Vital Signs [RC] Q4H Care 01/28/18 13:49 Active Regular Diet [DIET] Diet 01/28/18 Breakfast Active BASIC METABOLIC PANEL,BMP [CHEM] AM Lab 01/29/18 05:11 Ordered CBC WITH AUTO DIFF [HEME] AM Lab 01/29/18 05:11 Ordered DRUG SCREEN, URINE [URCHEM] Stat Lab 01/28/18 12:30 Ordered UA W/MICROSCOPIC [URIN] Stat Lab 01/28/18 10:45 Ordered Amitriptyline [Elavil] Med 01/28/18 21:00 Active 10 mg PO BEDTIME Carbidopa/Levodopa [Sinemet 25-100 mg] Med 01/28/18 14:00 Ordered DOSE tab PO TID Levothyroxine Med 01/28/18 14:00 Active 75 mcg PO DAILY Memantine [Namenda] Med 01/28/18 14:00 Active 10 mg PO BID OLANZapine [ZyPREXA] Med 01/28/18 21:00 Active 5 mg PO BEDTIME Prochlorperazine [Compazine] Med 01/28/18 13:47 Active 5 mg PO TID PRN Sodium Chloride 0.9% [Normal Saline] 1,000 ml Med 01/28/18 10:45 Active IV STAT rOPINIRole Med 01/28/18 14:00 Active 2 mg PO TID Sequential Compression Device [OM.PC] Per Unit Routine Oth 01/28/18 13:49 Ordered Resuscitation Status Routine Resus Stat 01/28/18 13:49 Ordered Medication Orders Amitriptyline HCl (Elavil) 10 mg PO BEDTIME PEREZ Carbidopa/Levodopa (Sinemet 25-100 Mg) tab PO TID PEREZ Sodium Chloride (Normal Saline) 1,000 mls @ 200 mls/hr IV STAT ONE Stop: 01/28/18 15:44 Last Admin: 01/28/18 11:43 Dose: 200 mls/hr Levothyroxine Sodium (Levothyroxine) 75 mcg PO DAILY PEREZ Memantine (Namenda) 10 mg PO BID PEREZ Non-Formulary Medication (Ropinirole) 2 mg PO TID PEREZ Olanzapine (Zyprexa) 5 mg PO BEDTIME PEREZ Prochlorperazine Maleate (Compazine) 5 mg PO TID PRN PRN Reason: Nausea Labs: Laboratory Tests 01/28/18 01/28/18 01/28/18 Range/Units 10:58 10:58 10:58 WBC 5.60 (4.0-11.0) K/uL RBC 4.63 (4.30-5.90) M/uL Hgb 13.7 (12.0-16.0) g/dL Hct 41.0 (36.0-46.0) % MCV 88.6 (80.0-98.0) fL MCH 29.6 (27.0-32.0) pg MCHC 33.4 (31.0-37.0) g/dL RDW Std Deviation 45.8 (28.0-62.0) fl RDW Coeff of Jordi 14 (11.0-15.0) % Plt Count 243 (150-400) K/uL MPV 9.10 (7.40-12.00) fL Neut % (Auto) 66.7 (48.0-80.0) % Lymph % (Auto) 20.2 (16.0-40.0) % [place] % (Auto) 9.1 (0.0-15.0) % Eos % (Auto) 2.7 (0.0-7.0) % Baso % (Auto) 1.3 (0.0-1.5) % Neut # (Auto) 3.7 (1.4-5.7) K/uL Lymph # (Auto) 1.1 (0.6-2.4) K/uL [place] # (Auto) 0.5 (0.0-0.8) K/uL Eos # (Auto) 0.2 (0.0-0.7) K/uL Baso # (Auto) 0.1 (0.0-0.1) K/uL Nucleated RBC % 0.0 /100WBC Nucleated RBCs # 0 K/uL Sodium 139 (136-145) mmol/L Potassium 4.6 (3.5-5.1) mmol/L Chloride 105 (98-107) mmol/L Carbon Dioxide 26.6 (21.0-32.0) mmol/L BUN 15 (7.0-18.0) mg/dL Creatinine 0.8 (0.6-1.0) mg/dL Est Cr Clr Drug Dosing TNP Estimated GFR (MDRD) > 60.0 ml/min Glucose 92 (74-106) mg/dL Calcium 8.9 (8.5-10.1) mg/dL Total Bilirubin 0.4 (0.2-1.0) mg/dL AST 17 (15-37) IU/L ALT 16 (14-63) IU/L Alkaline Phosphatase 87 (46-116) U/L Troponin I < 0.050 (0.000-0.056) ng/mL Total Protein 7.1 (6.4-8.2) g/dL Albumin 3.6 (3.4-5.0) g/dL Globulin 3.5 (2.0-3.5) g/dL Albumin/Globulin Ratio 1.0 L (1.3-2.8) TSH 3rd Generation 8.51 H (0.36-3.74) uIU/mL Meds: Medications Generic Name Dose Route Start Last Admin Trade Name Freq PRN Reason Stop Dose Admin Amitriptyline HCl 10 mg 01/28/18 21:00 Elavil PO BEDTIME PEREZ Carbidopa/Levodopa tab 01/28/18 14:00 Sinemet 25-100 Mg PO TID PEREZ Sodium Chloride 1,000 mls @ 200 mls/hr 01/28/18 10:45 01/28/18 11:43 Normal Saline IV 01/28/18 15:44 200 mls/hr STAT ONE Administration Levothyroxine Sodium 75 mcg 01/28/18 14:00 Levothyroxine PO DAILY PEREZ Memantine 10 mg 01/28/18 14:00 Namenda PO BID PEREZ Non-Formulary Medication 2 mg 01/28/18 14:00 Ropinirole PO TID PEREZ Olanzapine 5 mg 01/28/18 21:00 Zyprexa PO BEDTIME PEREZ Prochlorperazine Maleate 5 mg 01/28/18 13:47 Compazine PO TID PRN Nausea Departure - Departure Time of Disposition: 13:51 Disposition: Refer to Observation Clinical Impression: Altered mental status Qualifiers: Altered mental status type: unspecified Qualified Code(s): R41.82 - Altered mental status, unspecified - Discharge Information Referrals: PCP,Unknown [Primary Care Provider] - Forms: ED Department Discharge - My Orders Last 24 Hours: My Active Orders 01/28/18 10:45 EKG Documentation Completion [RC] STAT UA W/MICROSCOPIC [URIN] Stat Sodium Chloride 0.9% [Normal Saline] 1,000 ml IV STAT 01/28/18 12:30 DRUG SCREEN, URINE [URCHEM] Stat - Assessment/Plan Last 24 Hours: My Active Orders 01/28/18 10:45 EKG Documentation Completion [RC] STAT UA W/MICROSCOPIC [URIN] Stat Sodium Chloride 0.9% [Normal Saline] 1,000 ml IV STAT 01/28/18 12:30 DRUG SCREEN, URINE [URCHEM] Stat
[2018-01-28 11:29] LABS: CHLORIDE,CL 105 mmol/L (98-107); SODIUM,NA 139 mmol/L (136-145)
--- NOTE | 2018-01-28 11:44 | CR ---
EXAMINATION: Portable chest radiograph. HISTORY: Altered mental status. FINDINGS: The trachea is midline. The cardiomediastinal silhouette is within normal limits. No pulmonary infilt rates, effusions or pneumothorax. Trace biapical scarring. Osseous structures appear unremarkable. IMPRESSION: No acute cardiopulmonary process.
--- NOTE | 2018-01-28 12:30 | CT ---
EXAMINATION: Non contrast CT head. Coronal and sagittal reformats. HISTORY: Pain FINDINGS: No evidence of intra or extra axial hemorrhage, mass, midline shift, hydrocephalus or edema. Minimal generalized atrophy. No hypoattenuation changes in the major vascular territories to suggest acute infarct. No abnormal intracranial calcifications are detected. No evidence of substantial vascular calcificat ions. Trace mucosal thickening within the right maxillary sinus. Mastoid air cells and middle ears are tej r. Orbits and globes are symmetric. Pituitary fossa appears unremarkable. Calvarium is intact. No evidence of skull fracture. IMPRESSION: No acute intracranial findings.
[2018-01-28] MEDS ORDERED: Prochlorperazine 10 MG Tab PO PRN (13:47)
--- NOTE | 2018-01-28 13:57 | PCM.HP ---
H&P History of Present Illness - General Date of Service: 01/28/18 - History of Present Illness Initial Comments - Free Text/Narative: 72 yo female with pmh of Alzhemeirs and Parkinson's disease who presents with one day history of altered mental status. She was admitted last May for altered mental status which was felt due to ativan. She has not had any ativan or haldol since that admission. Patient usually requires an assist of one for walking. Last night she did not sleep much. She did not eat much the day before and her urine was cloudy. This morning she would not open her eyes and was speaking gibberish and refusing to get out of bed. She was brought to the ED. CXR, CT head, CBC, CMP were unremarkable. When I first evaluated her she was grasping her 's hand and counting serial numbers. When the lights turned on she opened her eyes and was responding more appropriately to questions. Family members present were surprised by marked increase in her level of alertness that was closer to her baseline. - Related Data Allergies/Adverse Reactions: Allergies Allergy/AdvReac Type Severity Reaction Status Date / Time No Known Allergies Allergy Verified 06/01/17 20:25 Home Medications: Home Meds Amitriptyline [Elavil] 10 mg PO BEDTIME 04/28/17 [History] LORazepam 0.5 mg PO BID PRN 04/28/17 [History] Levothyroxine 75 mcg PO DAILY 04/28/17 [History] Memantine HCl 10 mg PO BID 04/28/17 [History] OLANZapine [ZyPREXA] 5 mg PO BEDTIME 04/28/17 [History] Prochlorperazine [Compazine] 5 mg PO TID PRN 04/28/17 [History] rOPINIRole [Requip] 4 mg PO TID 04/28/17 [History] Carbidopa/Levodopa [Sinemet 25-100 mg] 1 tab PO TID 04/29/17 [History] Ibuprofen 400 mg PO PRN 01/28/18 [History] Cephalexin [Keflex] 500 mg PO Q12H #10 cap 01/30/18 [Rx] Past Medical History HEENT History: Reports: Impaired Vision, Other (See Below) Other HEENT History: corrective glasses Cardiovascular History: Reports: High Cholesterol Respiratory History: Reports: None Gastrointestinal History: Reports: Chronic Constipation, GERD Genitourinary History: Reports: Urinary Incontinence 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: Musculoskeletal History: Reports: None Neurological History: Reports: Alzheimers Disease, Parkinson's Psychiatric History: Reports: Alzheimers Disease, Anxiety, Dementia Endocrine/Metabolic History: Reports: Hypothyroidism Hematologic History: Reports: None Oncologic (Cancer) History: Reports: None - Infectious Disease History Infectious Disease History: Reports: Other (See Below) Other Infectious Disease History: unknown - Past Surgical History Cardiovascular Surgical History: Reports: None Female Surgical History: Reports: None Musculoskeletal Surgical History: Reports: None Social & Family History - Family History Family Medical History: Noncontributory - Tobacco Use Smoking Status *Q: Unknown Ever Smoked - Caffeine Use Caffeine Use: Reports: Soda Caffeine Use Comment: very seldom coffee, occassonally tea - Living Situation & Occupation Living situation: Reports: with Spouse Occupation: Retired H&P Review of Systems - Review of Systems: Review Of Systems: ROS reveals no pertinent complaints other than HPI. General: Reports: No Symptoms HEENT: Reports: No Symptoms Pulmonary: Reports: No Symptoms Cardiovascular: Reports: No Symptoms Gastrointestinal: Reports: No Symptoms Genitourinary: Reports: No Symptoms Musculoskeletal: Reports: No Symptoms Skin: Reports: No Symptoms Psychiatric: Reports: No Symptoms Neurological: Reports: No Symptoms Hematologic/Lymphatic: Reports: No Symptoms Immunologic: Reports: No Symptoms Exam - Exam Exam: See Below - Vital Signs Vital Signs: Last Vital Signs Temp 36.4 C 01/28/18 10:45 Pulse 80 01/28/18 10:45 Resp 20 01/28/18 10:45 BP 111/70 01/28/18 10:45 Pulse Ox 95 01/28/18 10:45 - Exam General: Cooperative HEENT: Mucosa Moist & [place], Posterior Pharynx Clear, Other (tempanic membrain clear) Neck: Supple Lungs: Clear to Auscultation, Normal Respiratory Effort Cardiovascular: Regular Rate, Regular Rhythm GI/Abdominal Exam: Normal Bowel Sounds, Soft, Non-Tender Extremities: Non-Tender, No Pedal Edema Skin: Warm, Dry, Intact - Patient Data Lab Results Last 24 hrs: Laboratory Results - last 24 hr 01/28/18 01/28/18 01/28/18 Range/Units 10:58 10:58 10:58 WBC 5.60 (4.0-11.0) K/uL RBC 4.63 (4.30-5.90) M/uL Hgb 13.7 (12.0-16.0) g/dL Hct 41.0 (36.0-46.0) % MCV 88.6 (80.0-98.0) fL MCH 29.6 (27.0-32.0) pg MCHC 33.4 (31.0-37.0) g/dL RDW Std Deviation 45.8 (28.0-62.0) fl RDW Coeff of Jordi 14 (11.0-15.0) % Plt Count 243 (150-400) K/uL MPV 9.10 (7.40-12.00) fL Neut % (Auto) 66.7 (48.0-80.0) % Lymph % (Auto) 20.2 (16.0-40.0) % [place] % (Auto) 9.1 (0.0-15.0) % Eos % (Auto) 2.7 (0.0-7.0) % Baso % (Auto) 1.3 (0.0-1.5) % Neut # (Auto) 3.7 (1.4-5.7) K/uL Lymph # (Auto) 1.1 (0.6-2.4) K/uL [place] # (Auto) 0.5 (0.0-0.8) K/uL Eos # (Auto) 0.2 (0.0-0.7) K/uL Baso # (Auto) 0.1 (0.0-0.1) K/uL Nucleated RBC % 0.0 /100WBC Nucleated RBCs # 0 K/uL Sodium 139 (136-145) mmol/L Potassium 4.6 (3.5-5.1) mmol/L Chloride 105 (98-107) mmol/L Carbon Dioxide 26.6 (21.0-32.0) mmol/L BUN 15 (7.0-18.0) mg/dL Creatinine 0.8 (0.6-1.0) mg/dL Est Cr Clr Drug Dosing TNP Estimated GFR (MDRD) > 60.0 ml/min Glucose 92 (74-106) mg/dL Calcium 8.9 (8.5-10.1) mg/dL Total Bilirubin 0.4 (0.2-1.0) mg/dL AST 17 (15-37) IU/L ALT 16 (14-63) IU/L Alkaline Phosphatase 87 (46-116) U/L Troponin I < 0.050 (0.000-0.056) ng/mL Total Protein 7.1 (6.4-8.2) g/dL Albumin 3.6 (3.4-5.0) g/dL Globulin 3.5 (2.0-3.5) g/dL Albumin/Globulin Ratio 1.0 L (1.3-2.8) TSH 3rd Generation 8.51 H (0.36-3.74) uIU/mL Result Diagrams: 01/29/18 06:12 01/29/18 06:12 Problem List Initiated/Reviewed/Updated: Yes Orders Last 24hrs: Active Orders 24 hr Category Date Time Status EKG Documentation Completion [RC] STAT Care 01/28/18 10:45 Active Oxygen Therapy [RC] PRN Care 01/28/18 13:49 Ordered Up ad Heather [RC] ASDIRECTED Care 01/28/18 13:49 Ordered VTE/DVT Education [RC] PER UNIT ROUTINE Care 01/28/18 13:49 Ordered Vital Signs [RC] Q4H Care 01/28/18 13:49 Ordered Regular Diet [DIET] Diet 01/28/18 Breakfast Ordered BASIC METABOLIC PANEL,BMP [CHEM] AM Lab 01/29/18 05:11 Ordered CBC WITH AUTO DIFF [HEME] AM Lab 01/29/18 05:11 Ordered DRUG SCREEN, URINE [URCHEM] Stat Lab 01/28/18 12:30 Ordered UA W/MICROSCOPIC [URIN] Stat Lab 01/28/18 10:45 Ordered Amitriptyline [Elavil] Med 01/28/18 21:00 Ordered 10 mg PO BEDTIME Carbidopa/Levodopa [Sinemet 25-100 mg] Med 01/28/18 14:00 Ordered 50 - 200 mg PO TID Levothyroxine Med 01/28/18 14:00 Ordered 75 mcg PO DAILY Memantine [Namenda] Med 01/28/18 14:00 Ordered 10 mg PO BID OLANZapine [ZyPREXA] Med 01/28/18 21:00 Ordered 5 mg PO BEDTIME Prochlorperazine [Compazine] Med 01/28/18 13:47 Ordered 5 mg PO TID PRN Sodium Chloride 0.9% [Normal Saline] 1,000 ml Med 01/28/18 10:45 Active IV STAT rOPINIRole Med 01/28/18 14:00 Ordered 2 mg PO TID Sequential Compression Device [OM.PC] Per Unit Routine Oth 01/28/18 13:49 Ordered Resuscitation Status Routine Resus Stat 01/28/18 13:49 Ordered Medication Orders Amitriptyline HCl (Elavil) 10 mg PO BEDTIME PEREZ Carbidopa/Levodopa (Sinemet 25-100 Mg) tab PO TID PEREZ Sodium Chloride (Normal Saline) 1,000 mls @ 200 mls/hr IV STAT ONE Stop: 01/28/18 15:44 Last Admin: 01/28/18 11:43 Dose: 200 mls/hr Levothyroxine Sodium (Levothyroxine) 75 mcg PO DAILY PEREZ Memantine (Namenda) 10 mg PO BID PEREZ Non-Formulary Medication (Ropinirole) 2 mg PO TID PEREZ Olanzapine (Zyprexa) 5 mg PO BEDTIME PEREZ Prochlorperazine Maleate (Compazine) 5 mg PO TID PRN PRN Reason: Nausea Assessment/Plan Comment:: 72 yo female admitted for altered mental status that has improved. I suspect delirium from dehydration and possible UTI. Will hydrate with IV fluids and check UA.
[2018-01-28] MEDS ORDERED: ROPINIROLE 2 MG PO SCH (14:00)
[2018-01-28] MEDS ORDERED: Levothyroxine 75 MCG Tab PO SCH (14:00)
[2018-01-28] MEDS: Carbidopa/Levodopa 25-100 MG Tab PO SCH ×2 (15:01→21:10)
[2018-01-28] MEDS: Memantine 10 MG Tab PO SCH ×2 (15:03→21:10)
[2018-01-28] MEDS: rOPINIRole 1 MG Tab PO SCH ×2 (15:04→21:10)
[2018-01-28] MEDS ORDERED: Ketorolac 15 MG/ML SDV IVPUSH STA (15:06)
[2018-01-28] MEDS: Levothyroxine 75 MCG Tab PO SCH (16:42)
[2018-01-28] MEDS: Amitriptyline 10 MG Tab PO SCH (21:10)
[2018-01-28] MEDS: OLANZapine 5 MG Tab PO SCH (21:10)
[2018-01-28] MEDS: cefTRIAXone 1 GM in Sodium Chloride 0.9% 50 ML IV SCH (22:36)
[2018-01-29 06:46] LABS: CHLORIDE,CL 107 mmol/L (98-107); SODIUM,NA 141 mmol/L (136-145)
[2018-01-29] MEDS: rOPINIRole 1 MG Tab PO SCH ×3 (06:50→22:37)
[2018-01-29] MEDS: Levothyroxine 75 MCG Tab PO SCH (06:50)
[2018-01-29] MEDS: Carbidopa/Levodopa 25-100 MG Tab PO SCH ×3 (06:50→22:38)
[2018-01-29] MEDS: Memantine 10 MG Tab PO SCH ×2 (09:52→20:29)
[2018-01-29] MEDS: cefTRIAXone 1 GM in Sodium Chloride 0.9% 50 ML IV SCH ×2 (09:54→20:28)
--- NOTE | 2018-01-29 13:34 | PCM.PN ---
- General Info Date of Service: 01/29/18 - Review of Systems Systems Review Comment:: no complaints - Patient Data Vitals - Most Recent: Last Vital Signs Temp 37.2 C 01/29/18 08:00 Pulse 79 01/29/18 08:00 Resp 14 01/29/18 08:00 BP 111/70 01/29/18 08:00 Pulse Ox 97 01/29/18 08:00 Weight - Most Recent: 54.431 kg I&O - Last 24 Hours: Intake & Output 01/28/18 01/29/18 01/29/18 22:59 06:59 14:59 Intake Total 1000 240 Output Total 0 Balance 1000 240 Lab Results Last 24 Hours: Laboratory Results - last 24 hr 01/28/18 01/28/18 01/29/18 Range/Units 13:40 13:40 06:12 WBC 4.07 (4.0-11.0) K/uL RBC 4.50 (4.30-5.90) M/uL Hgb 13.5 (12.0-16.0) g/dL Hct 40.3 (36.0-46.0) % MCV 89.6 (80.0-98.0) fL MCH 30.0 (27.0-32.0) pg MCHC 33.5 (31.0-37.0) g/dL RDW Std Deviation 45.4 (28.0-62.0) fl RDW Coeff of Jordi 14 (11.0-15.0) % Plt Count 216 (150-400) K/uL MPV 9.80 (7.40-12.00) fL Neut % (Auto) 48.4 (48.0-80.0) % Lymph % (Auto) 30.0 (16.0-40.0) % [place] % (Auto) 15.0 (0.0-15.0) % Eos % (Auto) 4.9 (0.0-7.0) % Baso % (Auto) 1.7 H (0.0-1.5) % Neut # (Auto) 2.0 (1.4-5.7) K/uL Lymph # (Auto) 1.2 (0.6-2.4) K/uL [place] # (Auto) 0.6 (0.0-0.8) K/uL Eos # (Auto) 0.2 (0.0-0.7) K/uL Baso # (Auto) 0.1 (0.0-0.1) K/uL Nucleated RBC % 0.0 /100WBC Nucleated RBCs # 0 K/uL Sodium (136-145) mmol/L Potassium (3.5-5.1) mmol/L Chloride (98-107) mmol/L Carbon Dioxide (21.0-32.0) mmol/L BUN (7.0-18.0) mg/dL Creatinine (0.6-1.0) mg/dL Est Cr Clr Drug Dosing mL/min Estimated GFR (MDRD) ml/min Glucose (74-106) mg/dL Calcium (8.5-10.1) mg/dL Urine Color YELLOW Urine Appearance CLEAR Urine pH 7.0 (5.0-8.0) Ur Specific [place] 1.010 (1.001-1.035) Urine Protein NEGATIVE (NEGATIVE) mg/dL Urine Glucose (UA) NEGATIVE (NEGATIVE) mg/dL Urine Ketones NEGATIVE (NEGATIVE) mg/dL Urine Occult Blood NEGATIVE (NEGATIVE) Urine Nitrite POSITIVE H (NEGATIVE) Urine Bilirubin NEGATIVE (NEGATIVE) Urine Urobilinogen 0.2 (<2.0) EU/dL Ur Leukocyte Esterase SMALL (NEGATIVE) Urine RBC 0-1 (0-2/HPF) Urine WBC 1-2 (0-5/HPF) Ur Epithelial Cells RARE (NONE-FEW) Urine Bacteria 2+ H (NEGATIVE) Urine Opiates Screen NEGATIVE (NEGATIVE) Ur Oxycodone Screen NEGATIVE (NEGATIVE) Urine Methadone Screen NEGATIVE (NEGATIVE) Ur Barbiturates Screen NEGATIVE (NEGATIVE) Ur Phencyclidine Scrn NEGATIVE (NEGATIVE) Ur Amphetamine Screen NEGATIVE (NEGATIVE) U Methamphetamines Scrn NEGATIVE (NEGATIVE) U Benzodiazepines Scrn NEGATIVE (NEGATIVE) U Cocaine Metab Screen NEGATIVE (NEGATIVE) U Marijuana (THC) Screen NEGATIVE (NEGATIVE) 01/29/18 Range/Units 06:12 WBC (4.0-11.0) K/uL RBC (4.30-5.90) M/uL Hgb (12.0-16.0) g/dL Hct (36.0-46.0) % MCV (80.0-98.0) fL MCH (27.0-32.0) pg MCHC (31.0-37.0) g/dL RDW Std Deviation (28.0-62.0) fl RDW Coeff of Jordi (11.0-15.0) % Plt Count (150-400) K/uL MPV (7.40-12.00) fL Neut % (Auto) (48.0-80.0) % Lymph % (Auto) (16.0-40.0) % [place] % (Auto) (0.0-15.0) % Eos % (Auto) (0.0-7.0) % Baso % (Auto) (0.0-1.5) % Neut # (Auto) (1.4-5.7) K/uL Lymph # (Auto) (0.6-2.4) K/uL [place] # (Auto) (0.0-0.8) K/uL Eos # (Auto) (0.0-0.7) K/uL Baso # (Auto) (0.0-0.1) K/uL Nucleated RBC % /100WBC Nucleated RBCs # K/uL Sodium 141 (136-145) mmol/L Potassium 4.3 (3.5-5.1) mmol/L Chloride 107 (98-107) mmol/L Carbon Dioxide 23.9 (21.0-32.0) mmol/L BUN 15 (7.0-18.0) mg/dL Creatinine 0.8 (0.6-1.0) mg/dL Est Cr Clr Drug Dosing 53.01 mL/min Estimated GFR (MDRD) > 60.0 ml/min Glucose 76 (74-106) mg/dL Calcium 8.9 (8.5-10.1) mg/dL Urine Color Urine Appearance Urine pH (5.0-8.0) Ur Specific [place] (1.001-1.035) Urine Protein (NEGATIVE) mg/dL Urine Glucose (UA) (NEGATIVE) mg/dL Urine Ketones (NEGATIVE) mg/dL Urine Occult Blood (NEGATIVE) Urine Nitrite (NEGATIVE) Urine Bilirubin (NEGATIVE) Urine Urobilinogen (<2.0) EU/dL Ur Leukocyte Esterase (NEGATIVE) Urine RBC (0-2/HPF) Urine WBC (0-5/HPF) Ur Epithelial Cells (NONE-FEW) Urine Bacteria (NEGATIVE) Urine Opiates Screen (NEGATIVE) Ur Oxycodone Screen (NEGATIVE) Urine Methadone Screen (NEGATIVE) Ur Barbiturates Screen (NEGATIVE) Ur Phencyclidine Scrn (NEGATIVE) Ur Amphetamine Screen (NEGATIVE) U Methamphetamines Scrn (NEGATIVE) U Benzodiazepines Scrn (NEGATIVE) U Cocaine Metab Screen (NEGATIVE) U Marijuana (THC) Screen (NEGATIVE) Med Orders - Current: Current Medications Amitriptyline HCl (Elavil) 10 mg PO BEDTIME [facility] Last Admin: 01/28/18 21:10 Dose: 10 mg Carbidopa/Levodopa (Sinemet 25-100 Mg) 2 tab PO TID [facility] Last Admin: 01/29/18 06:50 Dose: 2 tab Ceftriaxone Sodium 1 gm/ (Sodium Chloride) 50 mls @ 100 mls/hr IV Q12H [facility] Last Admin: 01/29/18 09:54 Dose: 100 mls/hr Levothyroxine Sodium (Levothyroxine) 75 mcg PO ACBREAKFAST [facility] Last Admin: 01/29/18 06:50 Dose: 75 mcg Memantine (Namenda) 10 mg PO BID [facility] Last Admin: 01/29/18 09:52 Dose: 10 mg Olanzapine (Zyprexa) 5 mg PO BEDTIME [facility] Last Admin: 01/28/18 21:10 Dose: 5 mg Prochlorperazine Maleate (Compazine) 5 mg PO TID PRN PRN Reason: Nausea Ropinirole HCl (Requip) 2 mg PO TID [facility] Last Admin: 01/29/18 06:50 Dose: 2 mg Discontinued Medications Sodium Chloride (Normal Saline) 1,000 mls @ 200 mls/hr IV STAT ONE Stop: 01/28/18 15:44 Last Admin: 01/28/18 11:43 Dose: 200 mls/hr Ketorolac Tromethamine (Toradol) 15 mg IVPUSH NOW STA Stop: 01/28/18 15:07 Last Admin: 01/28/18 15:16 Dose: 15 mg Levothyroxine Sodium (Levothyroxine) 75 mcg PO DAILY [facility] Last Admin: 01/28/18 15:02 Dose: 75 mcg Non-Formulary Medication (Ropinirole) 2 mg PO TID [facility] - Exam General: Cooperative. No: Oriented Lungs: Clear to Auscultation Cardiovascular: Regular Rate, Regular Rhythm GI/Abdominal Exam: Normal Bowel Sounds, Soft, Non-Tender Extremities: Non-Tender, No Pedal Edema Skin: Warm, Dry, Intact Neurological: No New Focal Deficit - Problem List Review Problem List Initiated/Reviewed/Updated: Yes - My Orders Last 24 Hours: My Active Orders 01/28/18 13:47 Prochlorperazine [Compazine] 5 mg PO TID PRN 01/28/18 13:49 Oxygen Therapy [RC] PRN Up ad Heather [RC] ASDIRECTED VTE/DVT Education [RC] PER UNIT ROUTINE Vital Signs [RC] Q4H Sequential Compression Device [OM.PC] Per Unit Routine Resuscitation Status Routine 01/28/18 14:00 Carbidopa/Levodopa [Sinemet 25-100 mg] 2 tab PO TID Levothyroxine 75 mcg PO ACBREAKFAST Memantine [Namenda] 10 mg PO BID rOPINIRole [Requip] 2 mg PO TID 01/28/18 21:00 Amitriptyline [Elavil] 10 mg PO BEDTIME OLANZapine [ZyPREXA] 5 mg PO BEDTIME cefTRIAXone [Rocephin] 1 gm Sodium Chloride 0.9% [Normal Saline] 50 ml IV Q12H - Plan Plan:: 72 yo female with pmh of dementia admitted for UTI with delirium. UTI: continue Rocephin, culture pending Dispo: ok with discharge home tomorrow.
[2018-01-29] MEDS ORDERED: Ibuprofen 400 MG Tab PO PRN (17:53)
[2018-01-29] MEDS: Amitriptyline 10 MG Tab PO SCH (20:33)
[2018-01-29] MEDS: OLANZapine 5 MG Tab PO SCH (20:33)
[2018-01-30] MEDS: rOPINIRole 1 MG Tab PO SCH (05:40)
[2018-01-30] MEDS: Carbidopa/Levodopa 25-100 MG Tab PO SCH (05:40)
[2018-01-30 06:23] VITALS: BP 120/62
[2018-01-30] MEDS: Levothyroxine 75 MCG Tab PO SCH (07:05)
[2018-01-30] MEDS: Memantine 10 MG Tab PO SCH (08:45)
[2018-01-30] MEDS: cefTRIAXone 1 GM in Sodium Chloride 0.9% 50 ML IV SCH (08:47)
--- NOTE | 2018-01-30 09:43 | PCM.DCSUM1 ---
Discharge Summary - Discharge Data Discharge Date: 01/30/18 Discharge Disposition: Home, Self-Care 01 Condition: Good - Patient Summary/Data Hospital Course: 72 yo female with pmh of Alzhemeir's and Parkinson's dementia admitted for UTI with delerium. She was treated with IV Rocephin and IV fluids. Her mental status did improve. Today family is agreeable for discharge. She was discharged home on Keflex 500mg BID for five more days. - Patient Instructions Diet: Regular Diet as Tolerated - Discharge Plan Prescriptions/Med Rec: Cephalexin [Keflex] 500 mg PO Q12H #10 cap Home Medications: Home Meds Amitriptyline [Elavil] 10 mg PO BEDTIME 04/28/17 [History] LORazepam 0.5 mg PO BID PRN 04/28/17 [History] Levothyroxine 75 mcg PO DAILY 04/28/17 [History] Memantine HCl 10 mg PO BID 04/28/17 [History] OLANZapine [ZyPREXA] 5 mg PO BEDTIME 04/28/17 [History] Prochlorperazine [Compazine] 5 mg PO TID PRN 04/28/17 [History] rOPINIRole [Requip] 4 mg PO TID 04/28/17 [History] Carbidopa/Levodopa [Sinemet 25-100 mg] 1 tab PO TID 04/29/17 [History] Ibuprofen 400 mg PO PRN 01/28/18 [History] Cephalexin [Keflex] 500 mg PO Q12H #10 cap 01/30/18 [Rx] Forms: ED Department Discharge Referrals: PCP,Unknown [Primary Care Provider] - - Patient Data Vitals - Most Recent: Last Vital Signs Temp 36.6 C 01/30/18 08:00 Pulse 85 01/30/18 08:00 Resp 14 01/30/18 08:00 BP 120/62 01/30/18 04:00 Pulse Ox 96 01/30/18 08:00 Weight - Most Recent: 54.431 kg I&O - Last 24 hours: Intake & Output 01/29/18 01/30/18 01/30/18 22:59 06:59 14:59 Intake Total 500 300 Output Total 100 0 Balance 400 300 Med Orders - Current: Current Medications Amitriptyline HCl (Elavil) 10 mg PO BEDTIME [facility] Last Admin: 01/29/18 20:33 Dose: 10 mg Carbidopa/Levodopa (Sinemet 25-100 Mg) 2 tab PO TID [facility] Last Admin: 01/30/18 05:40 Dose: 2 tab Ceftriaxone Sodium 1 gm/ (Sodium Chloride) 50 mls @ 100 mls/hr IV Q12H [facility] Last Admin: 01/30/18 08:47 Dose: 100 mls/hr Ibuprofen (Motrin) 400 mg PO Q6H PRN PRN Reason: Pain Last Admin: 01/29/18 20:29 Dose: 400 mg Levothyroxine Sodium (Levothyroxine) 75 mcg PO ACBREAKFAST [facility] Last Admin: 01/30/18 07:05 Dose: 75 mcg Memantine (Namenda) 10 mg PO BID [facility] Last Admin: 01/30/18 08:45 Dose: 10 mg Olanzapine (Zyprexa) 5 mg PO BEDTIME [facility] Last Admin: 01/29/18 20:33 Dose: 5 mg Prochlorperazine Maleate (Compazine) 5 mg PO TID PRN PRN Reason: Nausea Ropinirole HCl (Requip) 2 mg PO TID [facility] Last Admin: 01/30/18 05:40 Dose: 2 mg Discontinued Medications Sodium Chloride (Normal Saline) 1,000 mls @ 200 mls/hr IV STAT ONE Stop: 01/28/18 15:44 Last Admin: 01/28/18 11:43 Dose: 200 mls/hr Ketorolac Tromethamine (Toradol) 15 mg IVPUSH NOW STA Stop: 01/28/18 15:07 Last Admin: 01/28/18 15:16 Dose: 15 mg Levothyroxine Sodium (Levothyroxine) 75 mcg PO DAILY [facility] Last Admin: 01/28/18 15:02 Dose: 75 mcg Non-Formulary Medication (Ropinirole) 2 mg PO TID [facility]
== END 2018-01-30 11:20 | disposition home or self-care (01) ==
LOC: MW.ED 10:41 → MW.MS 14:29
PROVIDERS: ADMIT Internal Medicine; ATTEND Internal Medicine
DX: N39.0 Urinary tract infection, site not specified (principal); G30.9 Alzheimer's disease, unspecified; G20 Parkinson's disease; F02.80 Dementia in other diseases classified elsewhere, unspecified severity, without behavioral disturbance, psychotic disturbance, mood disturbance, and anxiety; E78.00 Pure hypercholesterolemia, unspecified; K59.09 Other constipation; K21.9 Gastro-esophageal reflux disease without esophagitis; E03.9 Hypothyroidism, unspecified; Z79.899 Other long term (current) drug therapy
CPT/HCPCS: 36415; 70450; 71045; 80048; 80053; 80305; 81001; 84443; 84484; 85025; 87086; 87088; 87186; 93005; 96361; 96374; 99285; A9270; J0696; J1885; J7040; J7050; 96375; 96376; G0378

== ENCOUNTER 2019-01-18 10:43 | Emergency (ER) | payer MEDICARE, BC ==
--- NOTE | 2019-01-18 10:46 | EDM.PDOC ---
ED HPI GENERAL MEDICAL PROBLEM - General Stated Complaint: UNABLE TO USE THE RESTROOM Time Seen by Provider: 01/18/19 10:45 Source of Information: Reports: Patient, Family, Old Records History Limitations: Reports: No Limitations - History of Present Illness INITIAL COMMENTS - FREE TEXT/NARRATIVE: HISTORY AND PHYSICAL: Report is obtained from and grand-daughter at bedside History of present illness: Patient is a 73-year-old female who presents to the emergency room with her and granddaughter with concerns of constipation. Patient has a past medical history of Alzheimer's, Parkinson, hypothyroidism, anxiety, urinary incontinence and chronic constipation. Patient is taken care of by her family in the home setting. The states that he has to help her ambulate and perform her ADLs. He states that she has not had a bowel movement in the past 14 days. They have tried increasing her oral fluids and she has had a total of 4 bottles of magnesium citrate over the past several days. He states that she is passing gas but has not had any form of stool. She continues to eat and drink appropriately. Still voiding frequently. Family denies noticing any fever, chills, falls, syncope or near syncope. Denies any chest pain, back pain, shortness of breath or cough. Denies any nausea, vomiting or dysuria. PCP Dr Weston at [facility]. Review of systems: As per history of present illness and below otherwise all systems reviewed and negative. Past medical history: As per history of present illness and as reviewed below otherwise noncontributory. Surgical history: As per history of present illness and as reviewed below otherwise noncontributory. Social history: See social history for further information Family history: As per history of present illness and as reviewed below otherwise noncontributory. Physical exam: General: Well-developed and well-nourished 73-year-old female. Family reports she is at her baseline, resting with eyes closed. Nonverbal. Does have a history of Alzheimer's and Parkinson's disease. No signs are stable and have been reviewed by me. HEENT: Atraumatic, normocephalic, pupils equal and reactive bilaterally, negative for conjunctival pallor or scleral icterus, mucous membranes dry, trachea midline. No drooling or trismus noted. No meningeal signs. No hot potato voice noted. Lungs: Clear to auscultation, breath sounds equal bilaterally, chest nontender. Heart: S1S2, regular rate and rhythm without overt murmur Abdomen: Semifirm, nondistended, moans with palpation of the abdomen, nonspecific. Negative for masses or hepatosplenomegaly. Negative for costovertebral tenderness. Pelvis: Stable nontender. Genitourinary: Deferred. Rectal: This was done with consent and a manual lathe machinist at the bedside. No external or internal hemorrhoids noted. There is no stool in the rectum. Good rectal tone. Negative Hemoccult stool. Skin: Intact, warm, dry. No lesions or rashes noted. Extremities: Atraumatic, moves all extremities per self, slow motor movements. Neurovascular unremarkable. Neuro: Awake and alert. Motor and sensory unremarkable throughout. Exam nonfocal. Notes: Lab work is unremarkable. CT shows moderate to large amount of stool throughout the colon. Large amount of stool within the distal sigmoid colon may represent constipation. Soapsuds enema was given at bedside. Moderate soft stool was excreted. Vital signs remain stable. Diagnostics were shared with family members. Supportive care measures were reviewed and discussed. Voices understanding and is agreeable to plan of care. Denies any further questions or concerns at this time. Diagnostics: CBC, CMP, CT abdomen and pelvis, UA Therapeutics: IV fluid Prescription: None Impression: Constipation Plan: 1. Please start adding Colace and/or Miralax to her regiment as directed 2. Follow-up with Dr. Vaughan as we discussed. 3. Return to the ED as needed and as discussed. Definitive disposition and diagnosis as appropriate pending reevaluation and review of above. - Related Data Allergies Allergy/AdvReac Type Severity Reaction Status Date / Time No Known Allergies Allergy Verified 01/18/19 10:56 Home Meds: Home Meds Amitriptyline [Elavil] 10 mg PO BEDTIME 04/28/17 [History] Levothyroxine 1.5 tab PO ASDIRECTED 04/28/17 [History] Memantine HCl 10 mg PO BID 04/28/17 [History] OLANZapine [ZyPREXA] 5 mg PO BEDTIME 04/28/17 [History] rOPINIRole [Requip] 4 mg PO TID 04/28/17 [History] Carbidopa/Levodopa [Sinemet 25-100 mg] 2 tab PO TID 04/29/17 [History] Ibuprofen 400 mg PO BID PRN 01/28/18 [History] Baclofen 1 tab PO TID 01/18/19 [History] FLUoxetine HCl [Prozac] 20 mg PO DAILY 01/18/19 [History] Levothyroxine 1 tab PO ASDIRECTED 01/18/19 [History] Past Medical History HEENT History: Reports: Impaired Vision, Other (See Below) Other HEENT History: corrective glasses Cardiovascular History: Reports: High Cholesterol Respiratory History: Reports: None Gastrointestinal History: Reports: Chronic Constipation, GERD Genitourinary History: Reports: Urinary Incontinence PUBLIC RELATIONS ANALYST History: Reports: Other PUBLIC RELATIONS ANALYST History: Tubal ligation Musculoskeletal History: Reports: None Neurological History: Reports: Alzheimers Disease, Parkinson's Psychiatric History: Reports: Alzheimers Disease, Anxiety, Dementia Endocrine/Metabolic History: Reports: Hypothyroidism Hematologic History: Reports: None Oncologic (Cancer) History: Reports: None - Infectious Disease History Infectious Disease History: Reports: Other (See Below) Other Infectious Disease History: unknown - Past Surgical History Cardiovascular Surgical History: Reports: None Female Surgical History: Reports: None Musculoskeletal Surgical History: Reports: None Social & Family History - Family History Family Medical History: Noncontributory - Caffeine Use Caffeine Use: Reports: Soda Caffeine Use Comment: very seldom coffee, occassonally tea - Living Situation & Occupation Living situation: Reports: with Spouse Occupation: Retired ED ROS GENERAL - Review of Systems Review Of Systems: ROS reveals no pertinent complaints other than HPI. ED EXAM, GI/ABD - Physical Exam Exam: See Below (See dictation) Course - Vital Signs Last Recorded V/S: Last Vital Signs Temp 96.6 F 01/18/19 10:54 Pulse 68 01/18/19 10:54 Resp 18 01/18/19 10:54 BP 143/86 H 01/18/19 10:54 Pulse Ox 96 01/18/19 10:54 - Orders/Labs/Meds Orders: Active Orders 24 hr Category Date Time Status Communication Order [RC] STAT Care 01/18/19 13:17 Active EKG Documentation Completion [RC] STAT Care 01/18/19 11:01 Active Sodium Chloride 0.9% [Normal Saline] 1,000 ml Med 01/18/19 11:01 Active IV STAT Medication Orders Sodium Chloride (Normal Saline) 1,000 mls @ 125 mls/hr IV STAT ONE Stop: 01/18/19 19:00 Last Admin: 01/18/19 11:21 Dose: 125 mls/hr Labs: Laboratory Tests 01/18/19 01/18/19 01/18/19 Range/Units 11:16 11:50 12:30 WBC 4.26 (4.0-11.0) K/uL RBC 4.81 (4.30-5.90) M/uL Hgb 14.3 (12.0-16.0) g/dL Hct 44.5 (36.0-46.0) % MCV 92.5 (80.0-98.0) fL MCH 29.7 (27.0-32.0) pg MCHC 32.1 (31.0-37.0) g/dL RDW Std Deviation 48.9 (28.0-62.0) fl RDW Coeff of Jordi 15 (11.0-15.0) % Plt Count 243 (150-400) K/uL MPV 9.80 (7.40-12.00) fL Neut % (Auto) 59.2 (48.0-80.0) % Lymph % (Auto) 24.9 (16.0-40.0) % [place] % (Auto) 8.9 (0.0-15.0) % Eos % (Auto) 5.4 (0.0-7.0) % Baso % (Auto) 1.6 H (0.0-1.5) % Neut # (Auto) 2.5 (1.4-5.7) K/uL Lymph # (Auto) 1.1 (0.6-2.4) K/uL [place] # (Auto) 0.4 (0.0-0.8) K/uL Eos # (Auto) 0.2 (0.0-0.7) K/uL Baso # (Auto) 0.1 (0.0-0.1) K/uL Nucleated RBC % 0.0 /100WBC Nucleated RBCs # 0 K/uL Sodium 138 (136-145) mmol/L Potassium 4.6 (3.5-5.1) mmol/L Chloride 106 (98-107) mmol/L Carbon Dioxide 25.3 (21.0-32.0) mmol/L BUN 16 (7.0-18.0) mg/dL Creatinine 0.7 (0.6-1.0) mg/dL Est Cr Clr Drug Dosing 64.64 mL/min Estimated GFR (MDRD) > 60.0 ml/min Glucose 84 (74-106) mg/dL Calcium 8.6 (8.5-10.1) mg/dL Total Bilirubin 0.4 (0.2-1.0) mg/dL AST 15 (15-37) IU/L ALT 21 (14-63) IU/L Alkaline Phosphatase 106 (46-116) U/L Total Protein 7.0 (6.4-8.2) g/dL Albumin 3.3 L (3.4-5.0) g/dL Globulin 3.7 (2.6-4.0) g/dL Albumin/Globulin Ratio 0.9 (0.9-1.6) Urine Color YELLOW Urine Appearance SLT CLOUDY Urine pH 8.5 H (5.0-8.0) Ur Specific [place] 1.010 (1.001-1.035) Urine Protein NEGATIVE (NEGATIVE) mg/dL Urine Glucose (UA) NEGATIVE (NEGATIVE) mg/dL Urine Ketones NEGATIVE (NEGATIVE) mg/dL Urine Occult Blood TRACE-INTACT H (NEGATIVE) Urine Nitrite NEGATIVE (NEGATIVE) Urine Bilirubin NEGATIVE (NEGATIVE) Urine Urobilinogen 0.2 (<2.0) EU/dL Ur Leukocyte Esterase NEGATIVE (NEGATIVE) Urine RBC 3-5 (0-2/HPF) Urine WBC 0-2 (0-5/HPF) Ur Epithelial Cells OCCASIONAL (NONE-FEW) Ur Squamous Epith Cells Not Reportable Amorphous Sediment MODERATE (NEGATIVE) Urine Bacteria FEW (NEGATIVE) Meds: Medications Generic Name Dose Route Start Last Admin Trade Name Beto PRN Reason Stop Dose Admin Sodium Chloride 1,000 mls @ 125 mls/hr 01/18/19 11:01 01/18/19 11:21 Normal Saline IV 01/18/19 19:00 125 mls/hr STAT ONE Administration Departure - Departure Time of Disposition: 13:29 Disposition: Home, Self-Care 01 Clinical Impression: Constipation Qualifiers: Constipation type: unspecified constipation type Qualified Code(s): K59.00 - Constipation, unspecified - Discharge Information Instructions: Constipation, Adult, [id number] Referrals: PCP,None [Primary Care Provider] - Additional Instructions: The following information is given to patients seen in the emergency department who are being discharged to home. This information is to outline your options for follow-up care. We provide all patients seen in our emergency department with a follow-up referral. The need for follow-up, as well as the timing and circumstances, are variable depending upon the specifics of your emergency department visit. If you don't have a primary care physician on staff, we will provide you with a referral. We always advise you to contact your personal physician following an emergency department visit to inform them of the circumstance of the visit and for follow-up with them and/or the need for any referrals to a consulting specialist. The emergency department will also refer you to a specialist when appropriate. This referral assures that you have the opportunity for follow-up care with a specialist. All of these measure are taken in an effort to provide you with optimal care, which includes your follow-up. Under all circumstances we always encourage you to contact your private physician who remains a resource for coordinating your care. When calling for follow-up care, please make the office aware that this follow-up is from your recent emergency room visit. If for any reason you are refused follow-up, please contact the [facility] Emergency Department at and asked to speak to the emergency department charge nurse. [facility] [address] [place] [id number] [place] [address] 1. Please start adding Colace and/or Miralax to her regiment as directed 2. Follow-up with Dr. Vaughan as we discussed. 3. Return to the ED as needed and as discussed. - My Orders Last 24 Hours: My Active Orders 01/18/19 11:01 EKG Documentation Completion [RC] STAT Sodium Chloride 0.9% [Normal Saline] 1,000 ml IV STAT 01/18/19 13:17 Communication Order [RC] STAT - Assessment/Plan Last 24 Hours: My Active Orders 01/18/19 11:01 EKG Documentation Completion [RC] STAT Sodium Chloride 0.9% [Normal Saline] 1,000 ml IV STAT 01/18/19 13:17 Communication Order [RC] STAT
[2019-01-18] MEDS ORDERED: Sodium Chloride 0.9% 1,000 ML IV ONE (11:01)
[2019-01-18 12:58] LABS: CHLORIDE,CL 106 mmol/L (98-107); SODIUM,NA 138 mmol/L (136-145)
--- NOTE | 2019-01-18 13:17 | CT ---
INDICATION: No bowel movement for 2 weeks TECHNIQUE: CT abdomen and pelvis without contrast. COMPARISON: None FINDINGS: Lower chest: Borderline cardiomegaly. Coronary artery calcifications. Liver: 5.6 cm cyst within the liver. Spleen: Unremarkable. Pancreas: Questionable 2.4 x 3.0 cm cystic lesion in the pancreatic body on image 71 series 201. Gallbladder and bile ducts: Cholelithiasis. Adrenal glands: Unremarkable. Kidneys: Left-sided parapelvic cysts. No kidney or ureteral stones and no hydronephrosis. GI tract: Moderate to large amount of feces within the colon. Appendix is normal. Vascular structures: Mild atherosclerotic disease. Lymph nodes: Unremarkable. Miscellaneous: Unremarkable. No free air or significant free fluid. Pelvic Organs: There is a 3.2 cm partially calcified uterine fibroid. Bones: Unremarkable for age. IMPRESSION: Moderate to large amount of stool throughout the colon. Large amount of stool within the distal sigmoid colon may represent obstipation. Questionable cystic lesion within the pancreatic body. Recommend pancreatic CT for further evaluation. Coronary artery disease. Cholelithiasis. Uterine fibroid. Please note that all CT scans at this facility use dose modulation, iterative reconstruction, and/or weight-based dosing when appropriate to reduce radiation dose to as low as reasonably achievable. Dictated by Tania Prasad MD @ Jan 18 2019 12:51PM Signed by Dr. Tania Prasad @ Jan 18 2019 1:16PM
[2019-01-18 13:57] VITALS: BP 135/83
== END 2019-01-18 13:56 | disposition home or self-care (01) ==
LOC: MW.ED 10:43
DX: K59.00 Constipation, unspecified (principal); K52.9 Noninfective gastroenteritis and colitis, unspecified; G30.9 Alzheimer's disease, unspecified; F02.80 Dementia in other diseases classified elsewhere, unspecified severity, without behavioral disturbance, psychotic disturbance, mood disturbance, and anxiety; E03.9 Hypothyroidism, unspecified; Z79.899 Other long term (current) drug therapy
CPT/HCPCS: 36415; 74176; 80053; 81001; 85025; 93005; 96360; 96361; 99284; J7040

== ENCOUNTER 2020-06-11 09:29 | Inpatient (IN) | payer MEDICARE, BC ==
[2020-06-11] MEDS ORDERED: Morphine 4 MG/ML Syringe IVPUSH ONE (09:43)
[2020-06-11] MEDS ORDERED: Sodium Chloride 0.9% 2.5 ML Syringe FLUSH PRN (09:43)
[2020-06-11] MEDS ORDERED: Ondansetron 4 MG/2 ML SDV IVPUSH ONE (09:43)
[2020-06-11] MEDS ORDERED: Sodium Chloride 0.9% 10 ML Syringe FLUSH PRN (09:43)
--- NOTE | 2020-06-11 09:52 | EDM.PDOC ---
ED HPI GENERAL MEDICAL PROBLEM - General Chief Complaint: Fever Stated Complaint: HIGH FEVER Time Seen by Provider: 06/11/20 09:35 - History of Present Illness INITIAL COMMENTS - FREE TEXT/NARRATIVE: 75-year-old female Limited history due to Parkinson's disease and Alzheimer's. Patient's family reports that she does struggle with constipation she had a large bowel movement few days ago he then developed a fever and is seem to be in significant pain, she lives at home with her they have caregivers that help during the day and he takes care of her at night. She normally does quite well beyond her Parkinson's and Alzheimer's dementia she is quite healthy without underlying cardiac pulmonary or renal pathology. No history of diabetes. Symptoms are constant without clear exacerbating or alleviating factors he denies associated emesis. She has had very minimal p.o. intake over the last couple days. - Related Data Allergies Allergy/AdvReac Type Severity Reaction Status Date / Time No Known Allergies Allergy Verified 06/11/20 09:39 Home Meds: Home Meds Amitriptyline [Elavil] 10 mg PO BEDTIME 04/28/17 [History] Levothyroxine 1.5 tab PO ASDIRECTED 04/28/17 [History] Memantine HCl 10 mg PO BID 04/28/17 [History] OLANZapine [ZyPREXA] 5 mg PO BEDTIME 04/28/17 [History] rOPINIRole [Requip] 4 mg PO TID 04/28/17 [History] Carbidopa/Levodopa [Sinemet 25-100 mg] 2 tab PO TID 04/29/17 [History] Ibuprofen 400 mg PO BID PRN 01/28/18 [History] Baclofen 1 tab PO TID 01/18/19 [History] FLUoxetine HCl [Prozac] 20 mg PO DAILY 01/18/19 [History] Levothyroxine 1 tab PO ASDIRECTED 01/18/19 [History] Past Medical History HEENT History: Reports: Impaired Vision, Other (See Below) Other HEENT History: corrective glasses Cardiovascular History: Reports: High Cholesterol Respiratory History: Reports: None Gastrointestinal History: Reports: Chronic Constipation, GERD Genitourinary History: Reports: Urinary Incontinence DIRECTOR INFORMATICS History: Reports: Other DIRECTOR INFORMATICS History: Tubal ligation Musculoskeletal History: Reports: None Neurological History: Reports: Alzheimers Disease, Parkinson's Psychiatric History: Reports: Alzheimers Disease, Anxiety, Dementia Endocrine/Metabolic History: Reports: Hypothyroidism Hematologic History: Reports: None Oncologic (Cancer) History: Reports: None - Infectious Disease History Infectious Disease History: Reports: Other (See Below) Other Infectious Disease History: unknown - Past Surgical History Cardiovascular Surgical History: Reports: None Female Surgical History: Reports: None Musculoskeletal Surgical History: Reports: None Social & Family History - Family History Family Medical History: Noncontributory - Caffeine Use Caffeine Use: Reports: Soda Caffeine Use Comment: very seldom coffee, occassonally tea - Living Situation & Occupation Living situation: Reports: with Spouse Occupation: Retired ED ROS GENERAL - Review of Systems Review Of Systems: See Below Free Text/Narrative/Comment: General: Positive for fever Skin: No rash. Neck: No neck stiffness. Respiratory: No cough Gastrointestinal: Per HPI Urinary: No hematuria Musculoskeletal: No myalgias/arthralgias. ED EXAM, GENERAL - Physical Exam Exam: See Below Free Text/Narrative:: General Appearance: No acute distress, appears uncomfortable Skin: No rash HEENT: Normocephalic/atraumatic, sclera anicteric, mucous membranes dry Neck: Normal range of motion Chest and Lungs: Bilateral breath sounds, clear to auscultation Cardiovascular: Regular rate and rhythm, no murmur Abdomen: Soft, diffuse tenderness without guarding or rebound Back: Normal Musculoskeletal: No edema or tenderness Neurologic: Moves all 4 extremities with good strength awake but nonverbal which is the patient's baseline Course - Vital Signs Last Recorded V/S: Last Vital Signs Temp 98.6 F 06/11/20 15:06 Pulse 86 06/11/20 15:06 Resp 18 06/11/20 12:10 BP 108/48 L 06/11/20 15:06 Pulse Ox 94 L 06/11/20 15:06 - Orders/Labs/Meds Orders: Active Orders 24 hr Category Date Time Status Patient Status [ADT] Routine ADT 06/11/20 15:21 Active URINALYSIS W/MICROSCOPIC [UA W/MICROSCOPIC] [URIN] Stat Lab 06/11/20 15:10 Results Sodium Chloride 0.9% [Saline Flush] Med 06/11/20 09:43 Active 10 ml FLUSH ASDIRECTED PRN Sodium Chloride 0.9% [Saline Flush] Med 06/11/20 09:43 Active 2.5 ml FLUSH ASDIRECTED PRN Saline Lock Insert [OM.PC] Stat Oth 06/11/20 09:43 Ordered Medication Orders Sodium Chloride (Saline Flush) 10 ml FLUSH ASDIRECTED PRN PRN Reason: Keep Vein Open Last Admin: 06/11/20 10:11 Dose: 10 ml Documented by: JEIMY Sodium Chloride (Saline Flush) 2.5 ml FLUSH ASDIRECTED PRN PRN Reason: Keep Vein Open Last Admin: 06/11/20 10:11 Dose: 2.5 ml Documented by: JEIMY Labs: Laboratory Tests 06/11/20 06/11/20 06/11/20 Range/Units 10:10 10:10 10:10 WBC 4.40 (4.0-11.0) K/uL RBC 4.03 L (4.30-5.90) M/uL Hgb 11.7 L (12.0-16.0) g/dL Hct 36.1 (36.0-46.0) % MCV 89.6 (80.0-98.0) fL MCH 29.0 (27.0-32.0) pg MCHC 32.4 (31.0-37.0) g/dL RDW Std Deviation 45.7 (28.0-62.0) fl RDW Coeff of Jordi 14 (11.0-15.0) % Plt Count 229 (150-400) K/uL MPV 9.60 (7.40-12.00) fL Neut % (Auto) 75.9 (48.0-80.0) % Lymph % (Auto) 11.4 L (16.0-40.0) % [place] % (Auto) 12.0 (0.0-15.0) % Eos % (Auto) 0.2 (0.0-7.0) % Baso % (Auto) 0.5 (0.0-1.5) % Neut # (Auto) 3.3 (1.4-5.7) K/uL Lymph # (Auto) 0.5 L (0.6-2.4) K/uL [place] # (Auto) 0.5 (0.0-0.8) K/uL Eos # (Auto) 0.0 (0.0-0.7) K/uL Baso # (Auto) 0.0 (0.0-0.1) K/uL Nucleated RBC % 0.0 /100WBC Nucleated RBCs # 0 K/uL Lactate 0.8 (0.20-2.00) mmol/L Sodium 136 (136-145) mmol/L Potassium 4.0 (3.5-5.1) mmol/L Chloride 105 (98-107) mmol/L Carbon Dioxide 23.6 (21.0-32.0) mmol/L BUN 21 H (7.0-18.0) mg/dL Creatinine 0.7 (0.6-1.0) mg/dL Est Cr Clr Drug Dosing 55.42 mL/min Estimated GFR (MDRD) > 60.0 ml/min Glucose 95 (74-106) mg/dL Calcium 7.8 L (8.5-10.1) mg/dL Total Bilirubin 0.3 (0.2-1.0) mg/dL AST 43 H (15-37) IU/L ALT 19 (14-63) IU/L Alkaline Phosphatase 171 H (46-116) U/L Total Protein 6.3 L (6.4-8.2) g/dL Albumin 3.2 L (3.4-5.0) g/dL Globulin 3.1 (2.6-4.0) g/dL Albumin/Globulin Ratio 1.0 (0.9-1.6) Lipase 62 L (73-393) U/L Urine Color Urine Appearance Urine pH (5.0-8.0) Ur Specific [place] (1.001-1.035) Urine Protein (NEGATIVE) mg/dL Urine Glucose (UA) (NEGATIVE) mg/dL Urine Ketones (NEGATIVE) mg/dL Urine Occult Blood (NEGATIVE) Urine Nitrite (NEGATIVE) Urine Bilirubin (NEGATIVE) Urine Urobilinogen (<2.0) EU/dL Ur Leukocyte Esterase (NEGATIVE) SARS-CoV-2 RNA (ANA) (NEGATIVE) 06/11/20 06/11/20 Range/Units 12:52 15:10 WBC (4.0-11.0) K/uL RBC (4.30-5.90) M/uL Hgb (12.0-16.0) g/dL Hct (36.0-46.0) % MCV (80.0-98.0) fL MCH (27.0-32.0) pg MCHC (31.0-37.0) g/dL RDW Std Deviation (28.0-62.0) fl RDW Coeff of Jordi (11.0-15.0) % Plt Count (150-400) K/uL MPV (7.40-12.00) fL Neut % (Auto) (48.0-80.0) % Lymph % (Auto) (16.0-40.0) % [place] % (Auto) (0.0-15.0) % Eos % (Auto) (0.0-7.0) % Baso % (Auto) (0.0-1.5) % Neut # (Auto) (1.4-5.7) K/uL Lymph # (Auto) (0.6-2.4) K/uL [place] # (Auto) (0.0-0.8) K/uL Eos # (Auto) (0.0-0.7) K/uL Baso # (Auto) (0.0-0.1) K/uL Nucleated RBC % /100WBC Nucleated RBCs # K/uL Lactate (0.20-2.00) mmol/L Sodium (136-145) mmol/L Potassium (3.5-5.1) mmol/L Chloride (98-107) mmol/L Carbon Dioxide (21.0-32.0) mmol/L BUN (7.0-18.0) mg/dL Creatinine (0.6-1.0) mg/dL Est Cr Clr Drug Dosing mL/min Estimated GFR (MDRD) ml/min Glucose (74-106) mg/dL Calcium (8.5-10.1) mg/dL Total Bilirubin (0.2-1.0) mg/dL AST (15-37) IU/L ALT (14-63) IU/L Alkaline Phosphatase (46-116) U/L Total Protein (6.4-8.2) g/dL Albumin (3.4-5.0) g/dL Globulin (2.6-4.0) g/dL Albumin/Globulin Ratio (0.9-1.6) Lipase (73-393) U/L Urine Color YELLOW Urine Appearance CLEAR Urine pH 6.0 (5.0-8.0) Ur Specific [place] 1.010 (1.001-1.035) Urine Protein NEGATIVE (NEGATIVE) mg/dL Urine Glucose (UA) NEGATIVE (NEGATIVE) mg/dL Urine Ketones NEGATIVE (NEGATIVE) mg/dL Urine Occult Blood TRACE-INTACT H (NEGATIVE) Urine Nitrite POSITIVE H (NEGATIVE) Urine Bilirubin NEGATIVE (NEGATIVE) Urine Urobilinogen 0.2 (<2.0) EU/dL Ur Leukocyte Esterase NEGATIVE (NEGATIVE) SARS-CoV-2 RNA (ANA) POSITIVE H (NEGATIVE) Meds: Medications Generic Name Dose Route Start Last Admin Trade Name Freq PRN Reason Stop Dose Admin Sodium Chloride 10 ml 06/11/20 09:43 06/11/20 10:11 Saline Flush FLUSH 10 ml ASDIRECTED PRN Administration Keep Vein Open Sodium Chloride 2.5 ml 06/11/20 09:43 06/11/20 10:11 Saline Flush FLUSH 2.5 ml ASDIRECTED PRN Administration Keep Vein Open Discontinued Medications Generic Name Dose Route Start Last Admin Trade Name Freq PRN Reason Stop Dose Admin Hydromorphone HCl 0.5 mg 06/11/20 11:49 06/11/20 12:10 Dilaudid IVPUSH 06/11/20 11:50 0.5 mg ONETIME ONE Administration Sodium Chloride 1,000 mls @ 999 mls/hr 06/11/20 13:30 06/11/20 13:36 Normal Saline IV 06/11/20 14:30 999 mls/hr .Bolus ONE Administration Iopamidol 80 ml 06/11/20 11:17 06/11/20 11:19 Isovue Multipack-370 (76%) IVPUSH 06/11/20 11:18 80 ml ONETIME STA Administration Morphine Sulfate 4 mg 06/11/20 09:43 06/11/20 10:10 Morphine IVPUSH 06/11/20 09:44 4 mg ONETIME ONE Administration Ondansetron HCl 4 mg 06/11/20 09:43 06/11/20 10:11 Zofran IVPUSH 06/11/20 09:44 4 mg ONETIME ONE Administration Departure - Departure Time of Disposition: 15:30 Disposition: Admitted As Inpatient 64 Condition: Good Clinical Impression: COVID-19 - Discharge Information *PRESCRIPTION DRUG MONITORING PROGRAM REVIEWED*: Not Applicable *COPY OF PRESCRIPTION DRUG MONITORING REPORT IN PATIENT SUSIE: Not Applicable Referrals: Mark Vaughan MD [Primary Care Provider] - Forms: ED Department Discharge Sepsis Event Note (ED) - Evaluation Sepsis Screening Result: No Definite Risk - Focused Exam Vital Signs: Vital Signs Temp Temp Pulse Resp BP Pulse Ox 06/11/20 15:06 98.6 F 86 108/48 L 94 L 06/11/20 14:06 93 89/44 L 92 L 06/11/20 13:36 89 94/51 L 92 L 06/11/20 13:06 93 85/37 L 92 L 06/11/20 12:30 101.7 F H 06/11/20 12:10 100.6 F 97 18 94/62 91 L 06/11/20 09:34 99.4 F 91 20 128/81 91 L - My Orders Last 24 Hours: My Active Orders 06/11/20 09:43 Sodium Chloride 0.9% [Saline Flush] 10 ml FLUSH ASDIRECTED PRN Sodium Chloride 0.9% [Saline Flush] 2.5 ml FLUSH ASDIRECTED PRN Saline Lock Insert [OM.PC] Stat 06/11/20 15:10 URINALYSIS W/MICROSCOPIC [UA W/MICROSCOPIC] [URIN] Stat 06/11/20 15:21 Patient Status [ADT] Routine - Assessment/Plan Last 24 Hours: My Active Orders 06/11/20 09:43 Sodium Chloride 0.9% [Saline Flush] 10 ml FLUSH ASDIRECTED PRN Sodium Chloride 0.9% [Saline Flush] 2.5 ml FLUSH ASDIRECTED PRN Saline Lock Insert [OM.PC] Stat 06/11/20 15:10 URINALYSIS W/MICROSCOPIC [UA W/MICROSCOPIC] [URIN] Stat 06/11/20 15:21 Patient Status [ADT] Routine Assessment:: 75-year-old female limited history due to significant dementia who is presenting with abdominal pain and diffuse tenderness. Lactate normal white count normal but febrile on rectal to 101. Urinalysis remains pending. Chest x-ray is clear. CT scan with significant distention but no sign of obstruction. However gallbladder likewise distended and there is an apparent foreign body within the gallbladder. Difficult to know what to make of this and will discuss with general surgery. On my digital rectal exam there is no fecal impaction. Patient had continued pain with morphine she was given a small dose of Dilaudid she did have a brief desaturation with this and is now on a few liters nasal cannula. Lactic acid is normal no clear signs of ischemia on CT scan mesenteric ischemia considered but clinical picture seems inconsistent with that. Again will discuss with surgery. 1230: Pt discussed with Dr. Ford of general surgery. Recommends US or MRCP to further evaluate. Likely an unusually shaped gallstone. Clinical picture is one of ileus 2/2 infective process. He remains available if needed however, would not further eval unless something concerning was found on the US or MRCP.UA remains pending. 1445: Patient is Covid positive. This likely explains her fever and GI symptoms. Cath UA is pending. Patient will need admission for further care given her very poor p.o. intake over the last couple days. That said she does not require oxygen at this point. 1530: UA remains pending at this time. Patient discussed in full with Dr. Rodgers, will admit as an inpatient to [facility] no indication for telemetry.
[2020-06-11 10:47] LABS: BLOOD UREA NITROGEN,BUN 21 mg/dL (7.0-18.0); CARBON DIOXIDE,CO2 23.6 mmol/L (21.0-32.0); CHLORIDE,CL 105 mmol/L (98-107); GLUCOSE RANDOM 95 mg/dL (74-106); LIPASE 62 U/L (73-393); SODIUM,NA 136 mmol/L (136-145)
[2020-06-11] MEDS ORDERED: Iopamidol 755 MG/ML 500 ML Multipack Bottle IVPUSH STA (11:17)
--- NOTE | 2020-06-11 11:29 | CR ---
INDICATION: Fever COMPARISON: January 28, 2018 TECHNIQUE: Synovial portable chest radiograph is an AP upright study FINDINGS: TUBES AND LINES: None. HEART AND MEDIASTINUM: Heart size normal.. LUNGS AND PLEURAL SPACES: A few linear opacities at the left lung base similar in appearance to the prior study likely scarring or atelectasis.No focal consolidation. OSSEOUS STRUCTURES: Age-appropriate appearance. No acute focal finding. IMPRESSION: A few linear opacities at the left lung base are similar in appearance to the prior study and likely scarring. No definite consolidation, infiltrate or mass Dictated by John Mancuso MD @ Jun 11 2020 11:25AM Signed by Dr. John Mancuso @ Jun 11 2020 11:27AM
[2020-06-11] MEDS ORDERED: HYDROmorphone 1 MG/ML Syringe IVPUSH ONE (11:49)
--- NOTE | 2020-06-11 12:02 | CT ---
INDICATION: Fever, abdominal pain and tenderness COMPARISON: There are no prior studies for comparison TECHNIQUE: CT examination of the abdomen and pelvis was performed following the uneventful intravenous administration of 80 cc of Isovue 370. Thin section axial images were obtained from the lung bases through the pubic symphysis. Oral contrast was not administered. Technical note: Significantly limited due to paucity of fat planes, motion and patient positioning difficulties Please note that all CT scans at this facility use dose modulation, iterative reconstruction, and/or weight-based dosing when appropriate to reduce radiation dose to as low as reasonably achievable. FINDINGS: LUNG BASES: Minimal atelectasis at the lung bases.Heart size is normal at the lung bases. Atherosclerotic vascular calcification LIVER/BILIARY SYSTEM:Fatty infiltration the liver. Multiple cysts in the right lobe adjacent to 1 another in aggregate measuring 5.5 centimeters in greatest dimension.The gallbladder is distended. There is no wall thickening. There appears to be a foreign body in the gallbladder. This is some under pole measuring about 1 centimeter in diameter. The significance in origin of this is uncertain. No biliary ductal dilatation ADRENALS: Normal KIDNEYS, URETERS and BLADDER:Kidneys normal in size. Peripelvic sinus lymphatics cysts bilaterally. No definite obstructive uropathy. Bladder grossly normal SPLEEN:Normal appearance. PANCREAS: Appears normal. RETROPERITONEUM and MESENTERY: There is no mass, adenopathy or aortic aneurysm. GASTROINTESTINAL SYSTEM: Difficult evaluation due to gaseous distension, lack of oral contrast, positioning and paucity of fat planes. No definite free air. Diffuse gaseous distention of bowel and fecal retention without obvious mechanical obstruction. Very difficult to exclude an acute inflammatory process of bowel though none is specifically suspected PELVIS: No mass, adenopathy or free fluid. OSSEOUS STRUCTURES and ABDOMINAL WALL: Demineralization and degenerative change without fracture or destructive processno significant anterior abdominal wall defect. OTHER: No free fluid or free air. IMPRESSION: 1. Significant type 2 limitations as discussed above. 2. Fatty infiltration liver. Multiple hepatic cysts. 3. There appears to be a foreign body in the gallbladder. Exact significance of this is uncertain. I see no wall thickening, biliary ductal dilatation or pericholecystic fluid 4. Diffuse gaseous distention of small and large bowel and fecal retention without mechanical obstruction. Very difficult to exclude an acute inflammatory process of bowel due to technical factors though none is specifically suspected 5. Other incidental findings as above Please note that all CT scans at this facility use dose modulation, iterative reconstruction, and/or weight-based dosing when appropriate to reduce radiation dose to as low as reasonably achievable. Dictated by John Mancuso MD @ Jun 11 2020 11:49AM Signed by Dr. John Mancuso @ Jun 11 2020 12:00PM
[2020-06-11] MEDS ORDERED: Sodium Chloride 0.9% 1,000 ML IV ONE (13:30)
[2020-06-11] MEDS ORDERED: Ibuprofen 200 MG Tab PO PRN (19:04)
--- NOTE | 2020-06-11 19:27 | PCM.HP.2 ---
<Belem Cortez - Last Filed: 06/11/20 20:05> H&P History of Present Illness - General Date of Service: 06/11/20 Admit Problem/Dx: Admission Diagnosis/Problem Admission Diagnosis/Problem Abdominal pain Source of Information: Family ( is JULIO, also provided history) History Limitations: Reports: Physical Impairment - History of Present Illness Initial Comments - Free Text/Narative: 75-year-old female Limited history due to Parkinson's disease and Alzheimer's. Patient's reports that she has a previous history of struggling with constipation. On wednesday she had a large bowel movement, then developed a fever and appeared to be in pain. States that she does well usually with her Alzheimers and Parkisons with the support of their care givers. States she has a good appetite and has not been eating or drinking in the last few days. Denies any sick contacts or recet travel. History was limited since patient could not provide any information. Onset of Symptoms: Reports: Other (since 4 days) Duration of Symptoms: Reports: Day(s): (4) Severity: Severe Improves with: Reports: Medication, Other (difficult to assess because patient is non communicative ) Associated Symptoms: Reports: Other (decreased appetite, fever) - Related Data Allergies/Adverse Reactions: Allergies Allergy/AdvReac Type Severity Reaction Status Date / Time No Known Allergies Allergy Verified 06/11/20 18:37 Home Medications: Home Meds Amitriptyline [Elavil] 10 mg PO BEDTIME 04/28/17 [History] Levothyroxine 112.5 mcg PO MOWEFR 04/28/17 [History] Memantine HCl 10 mg PO BID 04/28/17 [History] rOPINIRole [Requip] 4 mg PO TID 04/28/17 [History] Carbidopa/Levodopa [Sinemet 25-100 mg] 2 tab PO TID 04/29/17 [History] Baclofen 10 tab PO TID 01/18/19 [History] Levothyroxine 75 mcg PO SUTUTHSA 01/18/19 [History] Baclofen 5 mg PO TID PRN 06/12/20 [History] PARoxetine [Paxil] 10 mg PO DAILY 06/12/20 [History] Past Medical History HEENT History: Reports: Impaired Vision, Other (See Below) Other HEENT History: corrective glasses Cardiovascular History: Reports: High Cholesterol Respiratory History: Reports: None Gastrointestinal History: Reports: Chronic Constipation, GERD Genitourinary History: Reports: Urinary Incontinence PLANT ATTENDANT History: Reports: Other OB/BYN History: Tubal ligation Musculoskeletal History: Reports: None Neurological History: Reports: Alzheimers Disease, Parkinson's Psychiatric History: Reports: Alzheimers Disease, Anxiety, Dementia Endocrine/Metabolic History: Reports: Hypothyroidism Hematologic History: Reports: None Oncologic (Cancer) History: Reports: None - Infectious Disease History Infectious Disease History: Reports: Other (See Below) Other Infectious Disease History: unknown - Past Surgical History Cardiovascular Surgical History: Reports: None Female Surgical History: Reports: None Musculoskeletal Surgical History: Reports: None Social & Family History - Family History Family Medical History: Noncontributory - Tobacco Use Tobacco Use Status *Q: Never Tobacco User - Caffeine Use Caffeine Use: Reports: None Caffeine Use Comment: very seldom coffee, occassonally tea - Recreational Drug Use Recreational Drug Use: No - Living Situation & Occupation Living situation: Reports: with Spouse Occupation: Retired H&P Review of Systems - Review of Systems: Review Of Systems: See Below General: Reports: Fever HEENT: Reports: No Symptoms Pulmonary: Reports: No Symptoms Cardiovascular: Reports: No Symptoms Gastrointestinal: Reports: No Symptoms Genitourinary: Reports: No Symptoms Musculoskeletal: Reports: No Symptoms Skin: Reports: No Symptoms Psychiatric: Reports: No Symptoms Neurological: Reports: No Symptoms Hematologic/Lymphatic: Reports: No Symptoms Immunologic: Reports: No Symptoms Exam - Exam Exam: See Below - Vital Signs Vital Signs: Last Vital Signs Temp 98 F 06/11/20 18:25 Pulse 75 06/11/20 18:25 Resp 12 06/11/20 18:25 BP 138/65 06/11/20 18:25 Pulse Ox 96 06/11/20 18:25 Weight: 52.163 kg - Exam Quality Assessment: Supplemental Oxygen General: Severe Distress. No: Alert, Oriented HEENT: Conjunctiva Clear, EOMI, Mucosa Moist & [place], Nares Patent, Pupils Equal (limited exam) Neck: Supple, Trachea Midline Lungs: Clear to Auscultation, Normal Respiratory Effort Cardiovascular: Regular Rate, Regular Rhythm, Normal S1, Normal S2 GI/Abdominal Exam: Normal Bowel Sounds, Rigid, Tender (RLQ more rigid and tender) Extremities: No Pedal Edema, Normal Capillary Refill Peripheral Pulses: 2+: Dorsalis Pedis (L), Dorsalis Pedis (R) Skin: Warm, Dry, Intact Neuro Extensive - Mental Status: Inattentive, Other (non responsive, non communicative). No: Alert, Oriented x3, Normal Mood/Affect Psychiatric: Anxious, Agitated. No: Alert, Normal Affect, Normal Mood - Patient Data Lab Results Last 24 hrs: Laboratory Results - last 24 hr 06/11/20 06/11/20 06/11/20 Range/Units 10:10 10:10 10:10 WBC 4.40 (4.0-11.0) K/uL RBC 4.03 L (4.30-5.90) M/uL Hgb 11.7 L (12.0-16.0) g/dL Hct 36.1 (36.0-46.0) % MCV 89.6 (80.0-98.0) fL MCH 29.0 (27.0-32.0) pg MCHC 32.4 (31.0-37.0) g/dL RDW Std Deviation 45.7 (28.0-62.0) fl RDW Coeff of Jordi 14 (11.0-15.0) % Plt Count 229 (150-400) K/uL MPV 9.60 (7.40-12.00) fL Neut % (Auto) 75.9 (48.0-80.0) % Lymph % (Auto) 11.4 L (16.0-40.0) % [place] % (Auto) 12.0 (0.0-15.0) % Eos % (Auto) 0.2 (0.0-7.0) % Baso % (Auto) 0.5 (0.0-1.5) % Neut # (Auto) 3.3 (1.4-5.7) K/uL Lymph # (Auto) 0.5 L (0.6-2.4) K/uL [place] # (Auto) 0.5 (0.0-0.8) K/uL Eos # (Auto) 0.0 (0.0-0.7) K/uL Baso # (Auto) 0.0 (0.0-0.1) K/uL Nucleated RBC % 0.0 /100WBC Nucleated RBCs # 0 K/uL Lactate 0.8 (0.20-2.00) mmol/L Sodium 136 (136-145) mmol/L Potassium 4.0 (3.5-5.1) mmol/L Chloride 105 (98-107) mmol/L Carbon Dioxide 23.6 (21.0-32.0) mmol/L BUN 21 H (7.0-18.0) mg/dL Creatinine 0.7 (0.6-1.0) mg/dL Est Cr Clr Drug Dosing 55.42 mL/min Estimated GFR (MDRD) > 60.0 ml/min Glucose 95 (74-106) mg/dL Calcium 7.8 L (8.5-10.1) mg/dL Total Bilirubin 0.3 (0.2-1.0) mg/dL AST 43 H (15-37) IU/L ALT 19 (14-63) IU/L Alkaline Phosphatase 171 H (46-116) U/L Total Protein 6.3 L (6.4-8.2) g/dL Albumin 3.2 L (3.4-5.0) g/dL Globulin 3.1 (2.6-4.0) g/dL Albumin/Globulin Ratio 1.0 (0.9-1.6) Lipase 62 L (73-393) U/L Urine Color Urine Appearance Urine pH (5.0-8.0) Ur Specific [place] (1.001-1.035) Urine Protein (NEGATIVE) mg/dL Urine Glucose (UA) (NEGATIVE) mg/dL Urine Ketones (NEGATIVE) mg/dL Urine Occult Blood (NEGATIVE) Urine Nitrite (NEGATIVE) Urine Bilirubin (NEGATIVE) Urine Urobilinogen (<2.0) EU/dL Ur Leukocyte Esterase (NEGATIVE) Urine RBC (0-2/HPF) Urine WBC (0-5/HPF) Ur Epithelial Cells (NONE-FEW) Urine Bacteria (NEGATIVE) SARS-CoV-2 RNA (ANA) (NEGATIVE) 06/11/20 06/11/20 Range/Units 12:52 15:10 WBC (4.0-11.0) K/uL RBC (4.30-5.90) M/uL Hgb (12.0-16.0) g/dL Hct (36.0-46.0) % MCV (80.0-98.0) fL MCH (27.0-32.0) pg MCHC (31.0-37.0) g/dL RDW Std Deviation (28.0-62.0) fl RDW Coeff of Jordi (11.0-15.0) % Plt Count (150-400) K/uL MPV (7.40-12.00) fL Neut % (Auto) (48.0-80.0) % Lymph % (Auto) (16.0-40.0) % [place] % (Auto) (0.0-15.0) % Eos % (Auto) (0.0-7.0) % Baso % (Auto) (0.0-1.5) % Neut # (Auto) (1.4-5.7) K/uL Lymph # (Auto) (0.6-2.4) K/uL [place] # (Auto) (0.0-0.8) K/uL Eos # (Auto) (0.0-0.7) K/uL Baso # (Auto) (0.0-0.1) K/uL Nucleated RBC % /100WBC Nucleated RBCs # K/uL Lactate (0.20-2.00) mmol/L Sodium (136-145) mmol/L Potassium (3.5-5.1) mmol/L Chloride (98-107) mmol/L Carbon Dioxide (21.0-32.0) mmol/L BUN (7.0-18.0) mg/dL Creatinine (0.6-1.0) mg/dL Est Cr Clr Drug Dosing mL/min Estimated GFR (MDRD) ml/min Glucose (74-106) mg/dL Calcium (8.5-10.1) mg/dL Total Bilirubin (0.2-1.0) mg/dL AST (15-37) IU/L ALT (14-63) IU/L Alkaline Phosphatase (46-116) U/L Total Protein (6.4-8.2) g/dL Albumin (3.4-5.0) g/dL Globulin (2.6-4.0) g/dL Albumin/Globulin Ratio (0.9-1.6) Lipase (73-393) U/L Urine Color YELLOW Urine Appearance CLEAR Urine pH 6.0 (5.0-8.0) Ur Specific [place] 1.010 (1.001-1.035) Urine Protein NEGATIVE (NEGATIVE) mg/dL Urine Glucose (UA) NEGATIVE (NEGATIVE) mg/dL Urine Ketones NEGATIVE (NEGATIVE) mg/dL Urine Occult Blood TRACE-INTACT H (NEGATIVE) Urine Nitrite POSITIVE H (NEGATIVE) Urine Bilirubin NEGATIVE (NEGATIVE) Urine Urobilinogen 0.2 (<2.0) EU/dL Ur Leukocyte Esterase NEGATIVE (NEGATIVE) Urine RBC 0-1 (0-2/HPF) Urine WBC 0-1 (0-5/HPF) Ur Epithelial Cells RARE (NONE-FEW) Urine Bacteria FEW (NEGATIVE) SARS-CoV-2 RNA (ANA) POSITIVE H (NEGATIVE) Result Diagrams: 06/11/20 10:10 06/11/20 10:10 Sepsis Event Note - Evaluation Sepsis Screening Result: No Definite Risk - Focused Exam Vital Signs: Vital Signs Temp Temp Temp Pulse Resp BP Pulse Ox 06/11/20 18:25 98 F 75 12 138/65 96 06/11/20 17:36 72 108/63 95 06/11/20 16:36 68 110/50 L 94 L 06/11/20 15:36 75 101/52 L 92 L 06/11/20 15:06 98.6 F 86 108/48 L 94 L 06/11/20 14:06 93 89/44 L 92 L 06/11/20 13:36 89 94/51 L 92 L 06/11/20 13:06 93 85/37 L 92 L 06/11/20 12:30 101.7 F H 06/11/20 12:10 100.6 F 97 18 94/62 91 L 06/11/20 09:34 99.4 F 91 20 128/81 91 L - Problem List (1) Ileus SNOMED Code(s): 541348031 ICD Code: K56.7 - ILEUS, UNSPECIFIED Status: Acute Current Visit: Yes (2) COVID-19 SNOMED Code(s): 817065549 ICD Code: U07.1 - COVID-19 Status: Acute Current Visit: Yes Problem List Initiated/Reviewed/Updated: Yes Orders Last 24hrs: Active Orders 24 hr Category Date Time Status Patient Status [ADT] Routine ADT 06/11/20 18:41 Active Calero Catheter Insertion [Insert Urinary Catheter] [OM. Care 06/11/20 16:15 Ordered PC] Q24H Oxygen Therapy [RC] PRN Care 06/11/20 18:41 Active Urinary Catheter Assessment [RC] Q4H Care 06/11/20 16:04 Active VTE/DVT Education [RC] PER UNIT ROUTINE Care 06/11/20 18:41 Active Vital Signs [RC] Q4H Care 06/11/20 18:41 Active NPO [Nothing Per Oral Diet] [DIET] Diet 06/11/20 Dinner Ordered Amitriptyline [Elavil] Med 06/11/20 21:00 Ordered 10 mg PO BEDTIME Baclofen [Lioresal] Med 06/11/20 22:00 Ordered 10 mg PO TID Carbidopa/Levodopa [Sinemet 25-100 mg] Med 06/11/20 22:00 Ordered 2 tab PO TID Enoxaparin [Lovenox] Med 06/11/20 20:00 Active 40 mg SUBCUT Q24H FLUoxetine [PROzac] Med 06/12/20 09:00 Ordered 20 mg PO DAILY Ibuprofen [Motrin] Med 06/11/20 19:04 Ordered 400 mg PO BID PRN Levothyroxine Med 06/11/20 19:15 Ordered 112.5 mcg PO ASDIRECTED Levothyroxine Med 06/11/20 19:15 Ordered 75 mcg PO ASDIRECTED Memantine [Namenda] Med 06/11/20 21:00 Ordered 10 mg PO BID OLANZapine [ZyPREXA] Med 06/11/20 21:00 Ordered 5 mg PO BEDTIME Pantoprazole [ProTONIX IV] 40 mg Med 06/11/20 19:15 Ordered Sodium Chloride 0.9% [Normal Saline] 10 ml IV Q24H Sodium Chloride 0.9% [Saline Flush] Med 06/11/20 09:43 Active 10 ml FLUSH ASDIRECTED PRN Sodium Chloride 0.9% [Saline Flush] Med 06/11/20 09:43 Active 2.5 ml FLUSH ASDIRECTED PRN rOPINIRole Med 06/11/20 22:00 Ordered 4 mg PO TID Saline Lock Insert [OM.PC] Stat Oth 06/11/20 09:43 Ordered Resuscitation Status Routine Resus Stat 06/11/20 18:41 Ordered Medication Orders Amitriptyline HCl (Elavil) 10 mg PO BEDTIME PEREZ Baclofen (Lioresal) 10 mg PO TID [facility] Carbidopa/Levodopa (Sinemet 25-100 Mg) 2 tab PO TID [facility] Enoxaparin Sodium (Lovenox) 40 mg SUBCUT Q24H [facility] Fluoxetine HCl (Prozac) 20 mg PO DAILY [facility] Ibuprofen (Motrin) 400 mg PO BID PRN PRN Reason: Pain Levothyroxine Sodium (Levothyroxine) 75 mcg PO ASDIRECTED PEREZ Levothyroxine Sodium (Levothyroxine) 112.5 mcg PO ASDIRECTED [facility] Memantine (Namenda) 10 mg PO BID [facility]1983 Non-Formulary Medication (Ropinirole) 4 mg PO TID PEREZ Olanzapine (Zyprexa) 5 mg PO BEDTIME PEREZ Sodium Chloride (Saline Flush) 10 ml FLUSH ASDIRECTED PRN PRN Reason: Keep Vein Open Last Admin: 06/11/20 10:11 Dose: 10 ml Documented by: JEIMY Sodium Chloride (Saline Flush) 2.5 ml FLUSH ASDIRECTED PRN PRN Reason: Keep Vein Open Last Admin: 06/11/20 10:11 Dose: 2.5 ml Documented by: JEIMY Assessment/Plan Comment:: 75 y/o F with PMHx of Alzheimer's dementia, Parkinsons, COVID +, present with decreased appetite, increased abdominal pain, no bowel movements in last 2 days was brought in with fever. 1. Ileus- CT abdomen with no obstruction in small or large bowel. Diffuse gaseous distention of both small and large bowel with some fecal retention. -Gut rest, NPO, docusate senna, for pain morphine 1 mg one time, with 15 mg Toradol Q4H PEREZ for pain. 2. Covid 19- dexamethasone, O2 support , wean as tolerated, monitor vs [facility]. 3. Acute cystitis: no wbc, no fever, unable to determine suprapubic tenderness, . UA + nitrites, trace occult blood, and come bacteria. Treat with Rochephin 1G. in case it is contributing to pain, also do not want to further increases alterations in mentation. Pt incontinent therefore calero in place. 4.Gb foreign body: no need for further imaging at this time, as CT did not indicate any inflamatory changes in GB wall. Bedrest, NPO, Pantoprazole 40mg Q24H GI ppx, Enoxaparin 40mg Q24H DVT ppx. <Harris Rodgers - Last Filed: 06/13/20 13:08> H&P History of Present Illness - General Admit Problem/Dx: Admission Diagnosis/Problem Admission Diagnosis/Problem Abdominal pain Exam - Vital Signs Vital Signs: Last Vital Signs Temp 37.2 C 06/13/20 11:30 Pulse 77 06/13/20 12:41 Resp 14 06/13/20 11:30 BP 129/57 L 06/13/20 11:30 Pulse Ox 93 L 06/13/20 12:41 - Patient Data Lab Results Last 24 hrs: Laboratory Results - last 24 hr 06/13/20 06/13/20 Range/Units 06:30 06:30 WBC 6.13 (4.0-11.0) K/uL RBC 3.99 L (4.30-5.90) M/uL Hgb 12.1 (12.0-16.0) g/dL Hct 36.4 (36.0-46.0) % MCV 91.2 (80.0-98.0) fL MCH 30.3 (27.0-32.0) pg MCHC 33.2 (31.0-37.0) g/dL RDW Std Deviation 45.0 (28.0-62.0) fl RDW Coeff of Jordi 14 (11.0-15.0) % Plt Count 214 (150-400) K/uL MPV 10.20 (7.40-12.00) fL Neut % (Auto) 76.9 (48.0-80.0) % Lymph % (Auto) 15.7 L (16.0-40.0) % [place] % (Auto) 6.9 (0.0-15.0) % Eos % (Auto) 0.0 (0.0-7.0) % Baso % (Auto) 0.5 (0.0-1.5) % Neut # (Auto) 4.7 (1.4-5.7) K/uL Lymph # (Auto) 1.0 (0.6-2.4) K/uL [place] # (Auto) 0.4 (0.0-0.8) K/uL Eos # (Auto) 0.0 (0.0-0.7) K/uL Baso # (Auto) 0.0 (0.0-0.1) K/uL Nucleated RBC % 0.0 /100WBC Nucleated RBCs # 0 K/uL Sodium 139 (136-145) mmol/L Potassium 3.9 (3.5-5.1) mmol/L Chloride 106 (98-107) mmol/L Carbon Dioxide 25.8 (21.0-32.0) mmol/L BUN 8 (7.0-18.0) mg/dL Creatinine 0.6 (0.6-1.0) mg/dL Est Cr Clr Drug Dosing 64.66 mL/min Estimated GFR (MDRD) > 60.0 ml/min Glucose 98 (74-106) mg/dL Calcium 8.3 L (8.5-10.1) mg/dL Total Bilirubin 0.4 (0.2-1.0) mg/dL AST 88 H (15-37) IU/L ALT 25 (14-63) IU/L Alkaline Phosphatase 157 H (46-116) U/L Total Protein 6.3 L (6.4-8.2) g/dL Albumin 3.1 L (3.4-5.0) g/dL Globulin 3.2 (2.6-4.0) g/dL Albumin/Globulin Ratio 1.0 (0.9-1.6) Result Diagrams: 06/13/20 06:30 06/13/20 06:30 Sepsis Event Note - Focused Exam Vital Signs: Vital Signs Temp Pulse Resp BP BP Pulse Ox 06/13/20 12:41 77 93 L 06/13/20 11:30 37.2 C 71 14 129/57 L 95 06/13/20 08:00 36.6 C 71 14 98/56 L 97 06/13/20 03:09 36.4 C 76 16 136/83 97 Orders Last 24hrs: Active Orders 24 hr Category Date Time Status Communication Order [RC] ROUTINE Care 06/12/20 12:54 Active Clear Liquid Diet [DIET] Diet 06/13/20 Lunch Active CBC WITH AUTO DIFF [HEME] AM Lab 06/14/20 05:11 Ordered COMPREHENSIVE METABOLIC PN,CMP [CHEM] AM Lab 06/14/20 05:11 Ordered Acetaminophen [Tylenol Extra Strength] Med 06/12/20 21:13 Active 500 mg PO Q6H PRN Dextrose 5%-0.9% NaCl [Dextrose 5%-Normal Saline] 1,000 Med 06/12/20 13:45 Active ml IV ASDIRECTED Levothyroxine Med 06/14/20 07:00 Active 112.5 mcg PO MoWeFr@0700 Levothyroxine Med 06/13/20 07:00 Active 75 mcg PO SuTuThSa@0700 dexAMETHasone [Dexamethasone] Med 06/12/20 12:15 Active 6 mg IVPUSH Q24H Resuscitation Status Routine Resus Stat 06/12/20 12:53 Ordered Medication Orders Acetaminophen (Tylenol Extra Strength) 500 mg PO Q6H PRN PRN Reason: Pain/Fever Last Admin: 06/12/20 21:55 Dose: 500 mg Documented by: CHU Amitriptyline HCl (Elavil) 10 mg PO BEDTIME [facility] Last Admin: 06/12/20 21:50 Dose: 10 mg Documented by: Admin: 06/11/20 21:18 Dose: Not Given Documented by: EDNA Baclofen (Lioresal) 10 mg PO TID [facility] Last Admin: 06/13/20 06:53 Dose: 10 mg Documented by: Admin: 06/12/20 21:50 Dose: 10 mg Documented by: Admin: 06/12/20 14:27 Dose: 10 mg Documented by: Admin: 06/12/20 06:37 Dose: Not Given Documented by: Admin: 06/11/20 23:03 Dose: Not Given Documented by: EDNA Carbidopa/Levodopa (Sinemet 25-100 Mg) 2 tab PO TID [facility] Last Admin: 06/13/20 06:54 Dose: 2 tab Documented by: Admin: 06/12/20 21:50 Dose: 2 tab Documented by: Admin: 06/12/20 14:27 Dose: 2 tab Documented by: Admin: 06/12/20 06:38 Dose: Not Given Documented by: Admin: 06/11/20 23:04 Dose: Not Given Documented by: EDNA Dexamethasone (Dexamethasone) 6 mg IVPUSH Q24H [facility] Last Admin: 06/13/20 11:35 Dose: 6 mg Documented by: Admin: 06/12/20 12:43 Dose: 6 mg Documented by: RAQUEL Enoxaparin Sodium (Lovenox) 40 mg SUBCUT Q24H [facility] Last Admin: 06/12/20 20:43 Dose: 40 mg Documented by: Admin: 06/11/20 21:04 Dose: 40 mg Documented by: EDNA Pantoprazole Sodium 40 mg/ (Sodium Chloride) 10 mls @ 300 mls/hr IV Q24H [facility] Last Admin: 06/12/20 20:43 Dose: 300 mls/hr Documented by: Infusion: 06/11/20 21:07 Dose: 300 mls/hr Documented by: Admin: 06/11/20 21:05 Dose: 300 mls/hr Documented by: EDNA Ceftriaxone Sodium/Dextrose 1 (gm/ Premix) 50 mls @ 100 mls/hr IV Q24H [facility] Last Admin: 06/12/20 20:44 Dose: 100 mls/hr Documented by: Infusion: 06/11/20 21:41 Dose: 100 mls/hr Documented by: Admin: 06/11/20 21:11 Dose: 100 mls/hr Documented by: EDNA Dextrose/Sodium Chloride (Dextrose 5%-Normal Saline) 1,000 mls @ 125 mls/hr IV ASDIRECTED [facility] Last Admin: 06/13/20 08:16 Dose: 125 mls/hr Documented by: Infusion: 06/13/20 08:01 Dose: 125 mls/hr Documented by: Admin: 06/13/20 00:01 Dose: 125 mls/hr Documented by: Infusion: 06/12/20 22:49 Dose: 125 mls/hr Documented by: Admin: 06/12/20 14:49 Dose: 125 mls/hr Documented by: RAQUEL Ketorolac Tromethamine (Toradol) 15 mg IVPUSH Q6H [facility] Last Admin: 06/13/20 10:58 Dose: 15 mg Documented by: Admin: 06/13/20 03:09 Dose: 15 mg Documented by: Admin: 06/12/20 20:42 Dose: 15 mg Documented by: Admin: 06/12/20 14:27 Dose: 15 mg Documented by: Admin: 06/12/20 09:16 Dose: 15 mg Documented by: EDNA Levothyroxine Sodium (Levothyroxine) 75 mcg PO SuTuThSa@0700 [facility] Last Admin: 06/13/20 06:53 Dose: 75 mcg Documented by: CHU Levothyroxine Sodium (Levothyroxine) 112.5 mcg PO MoWeFr@0700 [facility] Memantine (Namenda) 10 mg PO BID [facility] Last Admin: 06/13/20 10:57 Dose: 10 mg Documented by: Admin: 06/12/20 20:44 Dose: 10 mg Documented by: Admin: 06/12/20 09:20 Dose: Not Given Documented by: Admin: 06/11/20 21:18 Dose: Not Given Documented by: EDNA Olanzapine (Zyprexa) 5 mg PO BEDTIME [facility] Last Admin: 06/12/20 20:44 Dose: 5 mg Documented by: Admin: 06/11/20 21:18 Dose: Not Given Documented by: EDNA Paroxetine HCl (Paxil) 10 mg PO DAILY [facility] Last Admin: 06/13/20 10:57 Dose: 10 mg Documented by: Admin: 06/12/20 09:21 Dose: Not Given Documented by: EDNA Ropinirole HCl (Requip) 4 mg PO TID [facility] Last Admin: 06/13/20 06:52 Dose: 4 mg Documented by: Admin: 06/12/20 21:50 Dose: 4 mg Documented by: Admin: 06/12/20 14:27 Dose: 4 mg Documented by: Admin: 06/12/20 06:37 Dose: Not Given Documented by: Admin: 06/11/20 23:04 Dose: Not Given Documented by: EDNA Sodium Chloride (Saline Flush) 10 ml FLUSH ASDIRECTED PRN PRN Reason: Keep Vein Open Last Admin: 06/11/20 10:11 Dose: 10 ml Documented by: JEIMY Sodium Chloride (Saline Flush) 2.5 ml FLUSH ASDIRECTED PRN PRN Reason: Keep Vein Open Last Admin: 06/11/20 10:11 Dose: 2.5 ml Documented by: JEIMY Assessment/Plan Comment:: I performed a history and physical exam of the patient and discussed management with resident. I have reviewed the residents note and agree with documented findings and plan unless otherwise specified in my note.
[2020-06-11] MEDS ORDERED: Morphine 2 MG/ML SYRINGE IVPUSH ONE (19:38)
[2020-06-11] MEDS: Enoxaparin 40 MG/0.4 ML Syringe SUBCUT SCH (21:04)
[2020-06-11] MEDS: Pantoprazole 40 MG in Sodium Chloride 0.9% 10 ML IV SCH (21:05)
[2020-06-11] MEDS: cefTRIAXone 1 GM in Premix Bag 1 BAG IV SCH (21:11)
[2020-06-11] MEDS: Amitriptyline 10 MG Tab PO SCH (21:18)
[2020-06-11] MEDS: Memantine 10 MG Tab PO SCH (21:18)
[2020-06-11] MEDS: OLANZapine 5 MG Tab PO SCH (21:18)
[2020-06-11] MEDS: Baclofen 10 MG Tab PO SCH (23:03)
[2020-06-11] MEDS: Carbidopa/Levodopa 25-100 MG Tab PO SCH (23:04)
[2020-06-11] MEDS: rOPINIRole 1 MG Tab PO SCH (23:04)
[2020-06-11] MEDS: Ketorolac 15 MG/ML SDV IVPUSH SCH (23:56)
[2020-06-12] MEDS: Ketorolac 15 MG/ML SDV IVPUSH SCH ×4 (04:32→20:42)
[2020-06-12] MEDS: Baclofen 10 MG Tab PO SCH ×3 (06:37→21:50)
[2020-06-12] MEDS: rOPINIRole 1 MG Tab PO SCH ×3 (06:37→21:50)
[2020-06-12] MEDS: Carbidopa/Levodopa 25-100 MG Tab PO SCH ×3 (06:38→21:50)
[2020-06-12 07:13] LABS: BLOOD UREA NITROGEN,BUN 12 mg/dL (7.0-18.0); CARBON DIOXIDE,CO2 23.6 mmol/L (21.0-32.0); CHLORIDE,CL 106 mmol/L (98-107); GLUCOSE RANDOM 73 mg/dL (74-106); POTASSIUM,K 3.5 mmol/L (3.5-5.1); SODIUM,NA 138 mmol/L (136-145)
[2020-06-12] MEDS ORDERED: FLUoxetine 20 MG Cap PO SCH (09:00)
[2020-06-12] MEDS: Memantine 10 MG Tab PO SCH ×2 (09:20→20:44)
[2020-06-12] MEDS ORDERED: Sodium Chloride 0.9% 1,000 ML IV SCH (11:30)
[2020-06-12] MEDS ORDERED: Glycerin Pediatric 1.2 GM Supp RECTAL ONE (12:30)
[2020-06-12] MEDS: Dexamethasone 10 MG/ML SDV IVPUSH SCH (12:43)
--- NOTE | 2020-06-12 12:59 | PCM.PN ---
<Belem Cortez - Last Filed: 06/12/20 12:59> - General Info Date of Service: 06/12/20 - Review of Systems General: Reports: No Symptoms HEENT: Reports: No Symptoms Pulmonary: Reports: No Symptoms Cardiovascular: Reports: No Symptoms, Other Gastrointestinal: Reports: Abdominal Pain, Constipation, Decreased Appetite, Other (difficult to assess sine pt is not verbal). Denies: Diarrhea Genitourinary: Reports: Other (unable to assess ) Musculoskeletal: Reports: Other (difficult to assess since non verbal, no signs or symptoms ) Psychiatric: Reports: Other (Pt not able to communicate since has severe Alzheimers dementia and Parkinsons. ) - Patient Data Vitals - Most Recent: Last Vital Signs Temp 98.2 F 06/12/20 12:50 Pulse 81 06/12/20 12:50 Resp 16 06/12/20 12:50 BP 134/68 06/12/20 12:50 Pulse Ox 93 L 06/12/20 12:50 Weight - Most Recent: 52.163 kg I&O - Last 24 Hours: Intake & Output 06/11/20 06/12/20 06/12/20 22:59 06:59 14:59 Intake Total 60 Output Total 500 Balance -440 Lab Results Last 24 Hours: Laboratory Results - last 24 hr 06/11/20 06/11/20 06/12/20 Range/Units 12:52 15:10 05:38 WBC 3.16 L (4.0-11.0) K/uL RBC 3.89 L (4.30-5.90) M/uL Hgb 11.3 L (12.0-16.0) g/dL Hct 35.5 L (36.0-46.0) % MCV 91.3 (80.0-98.0) fL MCH 29.0 (27.0-32.0) pg MCHC 31.8 (31.0-37.0) g/dL RDW Std Deviation 46.6 (28.0-62.0) fl RDW Coeff of Jordi 14 (11.0-15.0) % Plt Count 209 (150-400) K/uL MPV 10.00 (7.40-12.00) fL Neut % (Auto) 57.2 (48.0-80.0) % Lymph % (Auto) 24.1 (16.0-40.0) % [place] % (Auto) 17.1 H (0.0-15.0) % Eos % (Auto) 0.3 (0.0-7.0) % Baso % (Auto) 1.3 (0.0-1.5) % Neut # (Auto) 1.8 (1.4-5.7) K/uL Lymph # (Auto) 0.8 (0.6-2.4) K/uL [place] # (Auto) 0.5 (0.0-0.8) K/uL Eos # (Auto) 0.0 (0.0-0.7) K/uL Baso # (Auto) 0.0 (0.0-0.1) K/uL Nucleated RBC % 0.0 /100WBC Nucleated RBCs # 0 K/uL Sodium (136-145) mmol/L Potassium (3.5-5.1) mmol/L Chloride (98-107) mmol/L Carbon Dioxide (21.0-32.0) mmol/L BUN (7.0-18.0) mg/dL Creatinine (0.6-1.0) mg/dL Est Cr Clr Drug Dosing mL/min Estimated GFR (MDRD) ml/min Glucose (74-106) mg/dL Calcium (8.5-10.1) mg/dL Total Bilirubin (0.2-1.0) mg/dL AST (15-37) IU/L ALT (14-63) IU/L Alkaline Phosphatase (46-116) U/L Total Protein (6.4-8.2) g/dL Albumin (3.4-5.0) g/dL Globulin (2.6-4.0) g/dL Albumin/Globulin Ratio (0.9-1.6) Urine Color YELLOW Urine Appearance CLEAR Urine pH 6.0 (5.0-8.0) Ur Specific Jeremiah 1.010 (1.001-1.035) Urine Protein NEGATIVE (NEGATIVE) mg/dL Urine Glucose (UA) NEGATIVE (NEGATIVE) mg/dL Urine Ketones NEGATIVE (NEGATIVE) mg/dL Urine Occult Blood TRACE-INTACT H (NEGATIVE) Urine Nitrite POSITIVE H (NEGATIVE) Urine Bilirubin NEGATIVE (NEGATIVE) Urine Urobilinogen 0.2 (<2.0) EU/dL Ur Leukocyte Esterase NEGATIVE (NEGATIVE) Urine RBC 0-1 (0-2/HPF) Urine WBC 0-1 (0-5/HPF) Ur Epithelial Cells RARE (NONE-FEW) Urine Bacteria FEW (NEGATIVE) SARS-CoV-2 RNA (ANA) POSITIVE H (NEGATIVE) 06/12/20 Range/Units 05:38 WBC (4.0-11.0) K/uL RBC (4.30-5.90) M/uL Hgb (12.0-16.0) g/dL Hct (36.0-46.0) % MCV (80.0-98.0) fL MCH (27.0-32.0) pg MCHC (31.0-37.0) g/dL RDW Std Deviation (28.0-62.0) fl RDW Coeff of Jordi (11.0-15.0) % Plt Count (150-400) K/uL MPV (7.40-12.00) fL Neut % (Auto) (48.0-80.0) % Lymph % (Auto) (16.0-40.0) % [place] % (Auto) (0.0-15.0) % Eos % (Auto) (0.0-7.0) % Baso % (Auto) (0.0-1.5) % Neut # (Auto) (1.4-5.7) K/uL Lymph # (Auto) (0.6-2.4) K/uL [place] # (Auto) (0.0-0.8) K/uL Eos # (Auto) (0.0-0.7) K/uL Baso # (Auto) (0.0-0.1) K/uL Nucleated RBC % /100WBC Nucleated RBCs # K/uL Sodium 138 (136-145) mmol/L Potassium 3.5 (3.5-5.1) mmol/L Chloride 106 (98-107) mmol/L Carbon Dioxide 23.6 (21.0-32.0) mmol/L BUN 12 (7.0-18.0) mg/dL Creatinine 0.6 (0.6-1.0) mg/dL Est Cr Clr Drug Dosing 64.66 mL/min Estimated GFR (MDRD) > 60.0 ml/min Glucose 73 L (74-106) mg/dL Calcium 7.8 L (8.5-10.1) mg/dL Total Bilirubin 0.3 (0.2-1.0) mg/dL AST 51 H (15-37) IU/L ALT 30 (14-63) IU/L Alkaline Phosphatase 155 H (46-116) U/L Total Protein 5.8 L (6.4-8.2) g/dL Albumin 2.9 L (3.4-5.0) g/dL Globulin 2.9 (2.6-4.0) g/dL Albumin/Globulin Ratio 1.0 (0.9-1.6) Urine Color Urine Appearance Urine pH (5.0-8.0) Ur Specific Jeremiah (1.001-1.035) Urine Protein (NEGATIVE) mg/dL Urine Glucose (UA) (NEGATIVE) mg/dL Urine Ketones (NEGATIVE) mg/dL Urine Occult Blood (NEGATIVE) Urine Nitrite (NEGATIVE) Urine Bilirubin (NEGATIVE) Urine Urobilinogen (<2.0) EU/dL Ur Leukocyte Esterase (NEGATIVE) Urine RBC (0-2/HPF) Urine WBC (0-5/HPF) Ur Epithelial Cells (NONE-FEW) Urine Bacteria (NEGATIVE) SARS-CoV-2 RNA (ANA) (NEGATIVE) Med Orders - Current: Current Medications Amitriptyline HCl (Elavil) 10 mg PO BEDTIME [facility] Last Admin: 06/11/20 21:18 Dose: Not Given Documented by: Baclofen (Lioresal) 10 mg PO TID [facility] Last Admin: 06/12/20 06:37 Dose: Not Given Documented by: Carbidopa/Levodopa (Sinemet 25-100 Mg) 2 tab PO TID [facility] Last Admin: 06/12/20 06:38 Dose: Not Given Documented by: Dexamethasone (Dexamethasone) 6 mg IVPUSH Q24H [facility] Last Admin: 06/12/20 12:43 Dose: 6 mg Documented by: Enoxaparin Sodium (Lovenox) 40 mg SUBCUT Q24H [facility] Last Admin: 06/11/20 21:04 Dose: 40 mg Documented by: Pantoprazole Sodium 40 mg/ (Sodium Chloride) 10 mls @ 300 mls/hr IV Q24H [facility] Last Admin: 06/11/20 21:05 Dose: 300 mls/hr Documented by: Ceftriaxone Sodium/Dextrose 1 (gm/ Premix) 50 mls @ 100 mls/hr IV Q24H [facility] Last Admin: 06/11/20 21:11 Dose: 100 mls/hr Documented by: Sodium Chloride (Normal Saline) 1,000 mls @ 125 mls/hr IV ASDIRECTED [facility] Stop: 06/12/20 19:29 Ketorolac Tromethamine (Toradol) 15 mg IVPUSH Q6H [facility] Last Admin: 06/12/20 09:16 Dose: 15 mg Documented by: Levothyroxine Sodium (Levothyroxine) 75 mcg PO ASDIRECTED [facility] Levothyroxine Sodium (Levothyroxine) 112.5 mcg PO ASDIRECTED [facility] Memantine (Namenda) 10 mg PO BID [facility] Last Admin: 06/12/20 09:20 Dose: Not Given Documented by: Olanzapine (Zyprexa) 5 mg PO BEDTIME [facility] Last Admin: 06/11/20 21:18 Dose: Not Given Documented by: Paroxetine HCl (Paxil) 10 mg PO DAILY [facility] Last Admin: 06/12/20 09:21 Dose: Not Given Documented by: Ropinirole HCl (Requip) 4 mg PO TID [facility] Last Admin: 06/12/20 06:37 Dose: Not Given Documented by: Sodium Chloride (Saline Flush) 10 ml FLUSH ASDIRECTED PRN PRN Reason: Keep Vein Open Last Admin: 06/11/20 10:11 Dose: 10 ml Documented by: Sodium Chloride (Saline Flush) 2.5 ml FLUSH ASDIRECTED PRN PRN Reason: Keep Vein Open Last Admin: 06/11/20 10:11 Dose: 2.5 ml Documented by: Discontinued Medications Dexamethasone (Dexamethasone) 6 mg PO DAILY [facility] Last Admin: 06/12/20 12:28 Dose: Not Given Documented by: Glycerin (Sani-Supp Pediatric) 1.5 gm RECTAL ONETIME ONE Stop: 06/12/20 12:31 Last Admin: 06/12/20 12:43 Dose: 1.5 gm Documented by: Hydromorphone HCl (Dilaudid) 0.5 mg IVPUSH ONETIME ONE Stop: 06/11/20 11:50 Last Admin: 06/11/20 12:10 Dose: 0.5 mg Documented by: Sodium Chloride (Normal Saline) 1,000 mls @ 999 mls/hr IV .Bolus ONE Stop: 06/11/20 14:30 Last Admin: 06/11/20 13:36 Dose: 999 mls/hr Documented by: Ibuprofen (Motrin) 400 mg PO BID PRN PRN Reason: Pain Iopamidol (Isovue Multipack-370 (76%)) 80 ml IVPUSH ONETIME STA Stop: 06/11/20 11:18 Last Admin: 06/11/20 11:19 Dose: 80 ml Documented by: Ketorolac Tromethamine (Toradol) 15 mg IVPUSH Q4H [facility] Stop: 06/12/20 19:39 Last Admin: 06/12/20 04:32 Dose: 15 mg Documented by: Morphine Sulfate (Morphine) 4 mg IVPUSH ONETIME ONE Stop: 06/11/20 09:44 Last Admin: 06/11/20 10:10 Dose: 4 mg Documented by: Morphine Sulfate (Morphine) 1 mg IVPUSH ONETIME ONE Stop: 06/11/20 19:39 Last Admin: 06/11/20 20:55 Dose: 1 mg Documented by: Ondansetron HCl (Zofran) 4 mg IVPUSH ONETIME ONE Stop: 06/11/20 09:44 Last Admin: 06/11/20 10:11 Dose: 4 mg Documented by: Senna/Docusate Sodium (Senna Plus) 1 tab PO ONETIME ONE Stop: 06/11/20 20:07 Last Admin: 06/11/20 21:18 Dose: Not Given Documented by: - Exam General: Alert, Cooperative, Mild Distress, Other (difficult to assess due to usp hx of Alzheimers and parkinsins). No: Oriented HEENT: Pupils Equal, Pupils Reactive, EOMI, Mucous Membr. Moist/[place] Neck: Supple, Trachea Midline, No JVD, No Thyromegaly, +2 Carotid Pulse wo Bruit, Lymphadenopathy Lungs: Clear to Auscultation, Other (on2L nasal cannula ) Cardiovascular: Regular Rate, Regular Rhythm, No Murmurs GI/Abdominal Exam: Normal Bowel Sounds, Soft, No Organomegaly, No Mass, Guarding, Rebound, Tender (pain seems to have improved with bowel rest/ pain medication . Pt no longer moaning, unless ilicited with palpation). No: Distended, Rigid (Female) Exam: Normal External Exam (calero catheter in place) Back Exam: No: CVA Tenderness (L), CVA Tenderness (R) Extremities: Normal Inspection, No Pedal Edema, Normal Capillary Refill Peripheral Pulses: 2+: Dorsalis Pedis (L), Dorsalis Pedis (R) Skin: Warm, Dry Neurological: No New Focal Deficit, Normal Tone, Sensation Intact. No: Normal Speech (not able to communiate appropriately. ) Psy/Mental Status: Alert, Normal Affect (back to her baseline. ), Normal Mood Sepsis Event Note - Evaluation Sepsis Screening Result: No Definite Risk - Focused Exam Vital Signs: Vital Signs Temp Pulse Resp BP Pulse Ox 06/12/20 12:50 98.2 F 81 16 134/68 93 L 06/12/20 10:47 93 L 06/12/20 08:56 97.8 F 72 14 132/68 97 06/12/20 04:30 98.1 F 78 14 129/77 95 - Problem List & Annotations (1) Ileus SNOMED Code(s): 049808148 Code(s): K56.7 - ILEUS, UNSPECIFIED Status: Acute Current Visit: Yes (2) COVID-19 SNOMED Code(s): 193935404 Code(s): U07.1 - COVID-19 Status: Acute Current Visit: Yes (3) Acute cystitis SNOMED Code(s): 54134100 Code(s): N30.00 - ACUTE CYSTITIS WITHOUT HEMATURIA Status: Acute Current Visit: Yes - Problem List Review Problem List Initiated/Reviewed/Updated: Yes - My Orders Last 24 Hours: My Active Orders 06/11/20 Dinner NPO [Nothing Per Oral Diet] [DIET] 06/11/20 18:41 Patient Status [ADT] Routine Oxygen Therapy [RC] PRN VTE/DVT Education [RC] PER UNIT ROUTINE Vital Signs [RC] Q4H 06/11/20 19:15 Levothyroxine 112.5 mcg PO ASDIRECTED Levothyroxine 75 mcg PO ASDIRECTED 06/11/20 20:00 Enoxaparin [Lovenox] 40 mg SUBCUT Q24H Pantoprazole [ProTONIX IV] 40 mg Sodium Chloride 0.9% [Normal Saline] 10 ml IV Q24H 06/11/20 21:00 Amitriptyline [Elavil] 10 mg PO BEDTIME Memantine [Namenda] 10 mg PO BID OLANZapine [ZyPREXA] 5 mg PO BEDTIME 06/11/20 22:00 Baclofen [Lioresal] 10 mg PO TID Carbidopa/Levodopa [Sinemet 25-100 mg] 2 tab PO TID rOPINIRole [Requip] 4 mg PO TID 06/12/20 09:00 Ketorolac [Toradol] 15 mg IVPUSH Q6H 06/12/20 12:53 Resuscitation Status Routine 06/12/20 12:54 Communication Order [RC] ROUTINE 06/13/20 05:11 CBC WITH AUTO DIFF [HEME] AM COMPREHENSIVE METABOLIC PN,CMP [CHEM] AM 06/14/20 05:11 CBC WITH AUTO DIFF [HEME] AM COMPREHENSIVE METABOLIC PN,CMP [CHEM] AM - Plan Plan:: 75 y/o F with PMHx of Alzheimer's dementia, Parkinsons, HLD,, Hypothyroidism is COVID +, presented with decreased appetite, increased abdominal pain, no bowel movements in last 3 days was brought in with fever but has been afrebile and on 2L nasal cannula since admission yesterday. 1. Ileus- CT abdomen with no obstruction in small or large bowel. Diffuse gaseous distention of both small and large bowel with some fecal retention. -Gut rest, NPO, unable to take docusate senna orally therefore will try rectal glycerine suppository. For pain we will avoid morphine but will continue with 15 mg Toradol Q6H [facility] for pain. 2. Covid 19- dexamethasone IV, O2 support , currently no cough but still on 2L of nc this morning sat 94%. Will continue to wean as tolerated, while continuing to monitor Vital signs closely. 3. Acute cystitis: no wbc, no fever, unable to determine suprapubic tenderness, no CVA tenderness b/l. UA + nitrites, trace occult blood, and few bacteria. Treat with Rochephin 1G.Wait for cultures and adjust antibiotics accordingly. Pt incontinent therefore Calero in place. 4.Gb foreign body: no need for further imaging at this time, as CT did not indicate any inflammatory changes in GB wall. 5. Mild hypoglycemia, pt NPO, therefore will give Dextrose NS 1L at 125. Bedrest, NPO, Pantoprazole 40mg Q24H GI ppx, Enoxaparin 40mg Q24H DVT ppx. <Vishal,Hooria - Last Filed: 06/13/20 13:24> - Patient Data Vitals - Most Recent: Last Vital Signs Temp 37.2 C 06/13/20 11:30 Pulse 77 06/13/20 12:41 Resp 14 06/13/20 11:30 BP 129/57 L 06/13/20 11:30 Pulse Ox 93 L 06/13/20 12:41 I&O - Last 24 Hours: Intake & Output 06/12/20 06/13/20 06/13/20 22:59 06:59 14:59 Intake Total 450 2060 Output Total 675 Balance -225 2060 Lab Results Last 24 Hours: Laboratory Results - last 24 hr 06/13/20 06/13/20 Range/Units 06:30 06:30 WBC 6.13 (4.0-11.0) K/uL RBC 3.99 L (4.30-5.90) M/uL Hgb 12.1 (12.0-16.0) g/dL Hct 36.4 (36.0-46.0) % MCV 91.2 (80.0-98.0) fL MCH 30.3 (27.0-32.0) pg MCHC 33.2 (31.0-37.0) g/dL RDW Std Deviation 45.0 (28.0-62.0) fl RDW Coeff of Jordi 14 (11.0-15.0) % Plt Count 214 (150-400) K/uL MPV 10.20 (7.40-12.00) fL Neut % (Auto) 76.9 (48.0-80.0) % Lymph % (Auto) 15.7 L (16.0-40.0) % [place] % (Auto) 6.9 (0.0-15.0) % Eos % (Auto) 0.0 (0.0-7.0) % Baso % (Auto) 0.5 (0.0-1.5) % Neut # (Auto) 4.7 (1.4-5.7) K/uL Lymph # (Auto) 1.0 (0.6-2.4) K/uL [place] # (Auto) 0.4 (0.0-0.8) K/uL Eos # (Auto) 0.0 (0.0-0.7) K/uL Baso # (Auto) 0.0 (0.0-0.1) K/uL Nucleated RBC % 0.0 /100WBC Nucleated RBCs # 0 K/uL Sodium 139 (136-145) mmol/L Potassium 3.9 (3.5-5.1) mmol/L Chloride 106 (98-107) mmol/L Carbon Dioxide 25.8 (21.0-32.0) mmol/L BUN 8 (7.0-18.0) mg/dL Creatinine 0.6 (0.6-1.0) mg/dL Est Cr Clr Drug Dosing 64.66 mL/min Estimated GFR (MDRD) > 60.0 ml/min Glucose 98 (74-106) mg/dL Calcium 8.3 L (8.5-10.1) mg/dL Total Bilirubin 0.4 (0.2-1.0) mg/dL AST 88 H (15-37) IU/L ALT 25 (14-63) IU/L Alkaline Phosphatase 157 H (46-116) U/L Total Protein 6.3 L (6.4-8.2) g/dL Albumin 3.1 L (3.4-5.0) g/dL Globulin 3.2 (2.6-4.0) g/dL Albumin/Globulin Ratio 1.0 (0.9-1.6) Med Orders - Current: Current Medications Acetaminophen (Tylenol Extra Strength) 500 mg PO Q6H PRN PRN Reason: Pain/Fever Last Admin: 06/12/20 21:55 Dose: 500 mg Documented by: Amitriptyline HCl (Elavil) 10 mg PO BEDTIME [facility] Last Admin: 06/12/20 21:50 Dose: 10 mg Documented by: Baclofen (Lioresal) 10 mg PO TID [facility] Last Admin: 06/13/20 06:53 Dose: 10 mg Documented by: Carbidopa/Levodopa (Sinemet 25-100 Mg) 2 tab PO TID [facility] Last Admin: 06/13/20 06:54 Dose: 2 tab Documented by: Dexamethasone (Dexamethasone) 6 mg IVPUSH Q24H [facility] Last Admin: 06/13/20 11:35 Dose: 6 mg Documented by: Enoxaparin Sodium (Lovenox) 40 mg SUBCUT Q24H [facility] Last Admin: 06/12/20 20:43 Dose: 40 mg Documented by: Pantoprazole Sodium 40 mg/ (Sodium Chloride) 10 mls @ 300 mls/hr IV Q24H [facility] Last Admin: 06/12/20 20:43 Dose: 300 mls/hr Documented by: Ceftriaxone Sodium/Dextrose 1 (gm/ Premix) 50 mls @ 100 mls/hr IV Q24H [facility] Last Admin: 06/12/20 20:44 Dose: 100 mls/hr Documented by: Dextrose/Sodium Chloride (Dextrose 5%-Normal Saline) 1,000 mls @ 125 mls/hr IV ASDIRECTED [facility] Last Admin: 06/13/20 08:16 Dose: 125 mls/hr Documented by: Ketorolac Tromethamine (Toradol) 15 mg IVPUSH Q6H [facility] Last Admin: 06/13/20 10:58 Dose: 15 mg Documented by: Levothyroxine Sodium (Levothyroxine) 75 mcg PO SuTuThSa@0700 [facility] Last Admin: 06/13/20 06:53 Dose: 75 mcg Documented by: Levothyroxine Sodium (Levothyroxine) 112.5 mcg PO MoWeFr@0700 [facility] Memantine (Namenda) 10 mg PO BID [facility] Last Admin: 06/13/20 10:57 Dose: 10 mg Documented by: Olanzapine (Zyprexa) 5 mg PO BEDTIME [facility] Last Admin: 06/12/20 20:44 Dose: 5 mg Documented by: Paroxetine HCl (Paxil) 10 mg PO DAILY [facility] Last Admin: 06/13/20 10:57 Dose: 10 mg Documented by: Ropinirole HCl (Requip) 4 mg PO TID [facility] Last Admin: 06/13/20 06:52 Dose: 4 mg Documented by: Sodium Chloride (Saline Flush) 10 ml FLUSH ASDIRECTED PRN PRN Reason: Keep Vein Open Last Admin: 06/11/20 10:11 Dose: 10 ml Documented by: Sodium Chloride (Saline Flush) 2.5 ml FLUSH ASDIRECTED PRN PRN Reason: Keep Vein Open Last Admin: 06/11/20 10:11 Dose: 2.5 ml Documented by: Discontinued Medications Dexamethasone (Dexamethasone) 6 mg PO DAILY [facility] Last Admin: 06/12/20 12:28 Dose: Not Given Documented by: Docusate Sodium (Colace) 100 mg PO ONETIME ONE Stop: 06/13/20 10:54 Last Admin: 06/13/20 11:09 Dose: 100 mg Documented by: Glycerin (Sani-Supp Pediatric) 1.5 gm RECTAL ONETIME ONE Stop: 06/12/20 12:31 Last Admin: 06/12/20 12:43 Dose: 1.5 gm Documented by: Hydromorphone HCl (Dilaudid) 0.5 mg IVPUSH ONETIME ONE Stop: 06/11/20 11:50 Last Admin: 06/11/20 12:10 Dose: 0.5 mg Documented by: Sodium Chloride (Normal Saline) 1,000 mls @ 999 mls/hr IV .Bolus ONE Stop: 06/11/20 14:30 Last Admin: 06/11/20 13:36 Dose: 999 mls/hr Documented by: Sodium Chloride (Normal Saline) 1,000 mls @ 125 mls/hr IV ASDIRECTED [facility] Stop: 06/12/20 19:29 Ibuprofen (Motrin) 400 mg PO BID PRN PRN Reason: Pain Iopamidol (Isovue Multipack-370 (76%)) 80 ml IVPUSH ONETIME STA Stop: 06/11/20 11:18 Last Admin: 06/11/20 11:19 Dose: 80 ml Documented by: Ketorolac Tromethamine (Toradol) 15 mg IVPUSH Q4H [facility] Stop: 06/12/20 19:39 Last Admin: 06/12/20 04:32 Dose: 15 mg Documented by: Morphine Sulfate (Morphine) 4 mg IVPUSH ONETIME ONE Stop: 06/11/20 09:44 Last Admin: 06/11/20 10:10 Dose: 4 mg Documented by: Morphine Sulfate (Morphine) 1 mg IVPUSH ONETIME ONE Stop: 06/11/20 19:39 Last Admin: 06/11/20 20:55 Dose: 1 mg Documented by: Ondansetron HCl (Zofran) 4 mg IVPUSH ONETIME ONE Stop: 06/11/20 09:44 Last Admin: 06/11/20 10:11 Dose: 4 mg Documented by: Senna/Docusate Sodium (Senna Plus) 1 tab PO ONETIME ONE Stop: 06/11/20 20:07 Last Admin: 06/11/20 21:18 Dose: Not Given Documented by: Sepsis Event Note - Focused Exam Vital Signs: Vital Signs Temp Pulse Resp BP BP Pulse Ox 06/13/20 12:41 77 93 L 06/13/20 11:30 37.2 C 71 14 129/57 L 95 06/13/20 08:00 36.6 C 71 14 98/56 L 97 06/13/20 03:09 36.4 C 76 16 136/83 97 - My Orders Last 24 Hours: My Active Orders 06/12/20 21:13 Acetaminophen [Tylenol Extra Strength] 500 mg PO Q6H PRN - Plan Plan:: I have seen and evaluated the patient and agree with the residents note unless specified in my note
[2020-06-12] MEDS: Dextrose 5%-0.9% NaCl 1,000 ML IV SCH (14:49)
[2020-06-12] MEDS: Pantoprazole 40 MG in Sodium Chloride 0.9% 10 ML IV SCH (20:43)
[2020-06-12] MEDS: Enoxaparin 40 MG/0.4 ML Syringe SUBCUT SCH (20:43)
[2020-06-12] MEDS: cefTRIAXone 1 GM in Premix Bag 1 BAG IV SCH (20:44)
[2020-06-12] MEDS: OLANZapine 5 MG Tab PO SCH (20:44)
[2020-06-12] MEDS: Amitriptyline 10 MG Tab PO SCH (21:50)
[2020-06-12] MEDS: Acetaminophen 500 MG Tab PO PRN (21:55)
[2020-06-13] MEDS: Dextrose 5%-0.9% NaCl 1,000 ML IV SCH ×3 (00:01→16:20)
[2020-06-13] MEDS: Ketorolac 15 MG/ML SDV IVPUSH SCH ×3 (03:09→16:14)
[2020-06-13] MEDS: rOPINIRole 1 MG Tab PO SCH ×3 (06:52→23:02)
[2020-06-13] MEDS: Baclofen 10 MG Tab PO SCH ×3 (06:53→23:04)
[2020-06-13] MEDS: Levothyroxine 75 MCG Tab PO SCH (06:53)
[2020-06-13] MEDS: Carbidopa/Levodopa 25-100 MG Tab PO SCH ×3 (06:54→23:03)
[2020-06-13 07:39] LABS: CARBON DIOXIDE,CO2 25.8 mmol/L (21.0-32.0); CHLORIDE,CL 106 mmol/L (98-107); POTASSIUM,K 3.9 mmol/L (3.5-5.1); SODIUM,NA 139 mmol/L (136-145)
[2020-06-13 07:40] LABS: BLOOD UREA NITROGEN,BUN 8 mg/dL (7.0-18.0); GLUCOSE RANDOM 98 mg/dL (74-106)
[2020-06-13] MEDS ORDERED: Docusate Sodium 100 MG Cap PO ONE (10:53)
[2020-06-13] MEDS: Memantine 10 MG Tab PO SCH ×2 (10:57→20:06)
--- NOTE | 2020-06-13 11:05 | PCM.PN ---
<MaureenileneBelem - Last Filed: 06/13/20 11:00> - General Info Date of Service: 06/13/20 Subjective Update: Layla Conrad is a 75 y/o F with being treated for Ileus, UTI and is COVID 19 positive. Last night she developed a temperature, was given Tylenol after which she remained afebrile. She rested well overnight, appears to be at her baseline this morning. Able to make sounds which are not understandable. Does not appear to be in pain/ any distress; as she is no longer making any sounds to indicate discomfort. Pt still has not had a bowel movement. We are unable to assess if she has been passing gas at this time due to being non-communicative secondary to her h/o advanced Alzheimer's dementia and Parkinson's disease. - Review of Systems HEENT: Reports: No Symptoms Pulmonary: Reports: No Symptoms Cardiovascular: Reports: No Symptoms Gastrointestinal: Reports: Constipation, Decreased Appetite. Denies: Vomiting Genitourinary: Reports: No Symptoms Musculoskeletal: Reports: No Symptoms Skin: Reports: No Symptoms Neurological: Reports: Other (unable to truely assess but as per 's description, this is her baseline) - Patient Data Vitals - Most Recent: Last Vital Signs Temp 97.8 F 06/13/20 08:00 Pulse 71 06/13/20 08:00 Resp 14 06/13/20 08:00 BP 98/56 L 06/13/20 08:00 Pulse Ox 97 06/13/20 08:00 Weight - Most Recent: 52.163 kg I&O - Last 24 Hours: Intake & Output 06/12/20 06/13/20 06/13/20 22:59 06:59 14:59 Intake Total 450 2060 Output Total 675 Balance -225 2060 Lab Results Last 24 Hours: Laboratory Results - last 24 hr 06/13/20 06/13/20 Range/Units 06:30 06:30 WBC 6.13 (4.0-11.0) K/uL RBC 3.99 L (4.30-5.90) M/uL Hgb 12.1 (12.0-16.0) g/dL Hct 36.4 (36.0-46.0) % MCV 91.2 (80.0-98.0) fL MCH 30.3 (27.0-32.0) pg MCHC 33.2 (31.0-37.0) g/dL RDW Std Deviation 45.0 (28.0-62.0) fl RDW Coeff of Jordi 14 (11.0-15.0) % Plt Count 214 (150-400) K/uL MPV 10.20 (7.40-12.00) fL Neut % (Auto) 76.9 (48.0-80.0) % Lymph % (Auto) 15.7 L (16.0-40.0) % [place] % (Auto) 6.9 (0.0-15.0) % Eos % (Auto) 0.0 (0.0-7.0) % Baso % (Auto) 0.5 (0.0-1.5) % Neut # (Auto) 4.7 (1.4-5.7) K/uL Lymph # (Auto) 1.0 (0.6-2.4) K/uL [place] # (Auto) 0.4 (0.0-0.8) K/uL Eos # (Auto) 0.0 (0.0-0.7) K/uL Baso # (Auto) 0.0 (0.0-0.1) K/uL Nucleated RBC % 0.0 /100WBC Nucleated RBCs # 0 K/uL Sodium 139 (136-145) mmol/L Potassium 3.9 (3.5-5.1) mmol/L Chloride 106 (98-107) mmol/L Carbon Dioxide 25.8 (21.0-32.0) mmol/L BUN 8 (7.0-18.0) mg/dL Creatinine 0.6 (0.6-1.0) mg/dL Est Cr Clr Drug Dosing 64.66 mL/min Estimated GFR (MDRD) > 60.0 ml/min Glucose 98 (74-106) mg/dL Calcium 8.3 L (8.5-10.1) mg/dL Total Bilirubin 0.4 (0.2-1.0) mg/dL AST 88 H (15-37) IU/L ALT 25 (14-63) IU/L Alkaline Phosphatase 157 H (46-116) U/L Total Protein 6.3 L (6.4-8.2) g/dL Albumin 3.1 L (3.4-5.0) g/dL Globulin 3.2 (2.6-4.0) g/dL Albumin/Globulin Ratio 1.0 (0.9-1.6) Med Orders - Current: Current Medications Acetaminophen (Tylenol Extra Strength) 500 mg PO Q6H PRN PRN Reason: Pain/Fever Last Admin: 06/12/20 21:55 Dose: 500 mg Documented by: Amitriptyline HCl (Elavil) 10 mg PO BEDTIME [facility] Last Admin: 06/12/20 21:50 Dose: 10 mg Documented by: Baclofen (Lioresal) 10 mg PO TID [facility] Last Admin: 06/13/20 06:53 Dose: 10 mg Documented by: Carbidopa/Levodopa (Sinemet 25-100 Mg) 2 tab PO TID [facility] Last Admin: 06/13/20 06:54 Dose: 2 tab Documented by: Dexamethasone (Dexamethasone) 6 mg IVPUSH Q24H [facility] Last Admin: 06/12/20 12:43 Dose: 6 mg Documented by: Enoxaparin Sodium (Lovenox) 40 mg SUBCUT Q24H [facility] Last Admin: 06/12/20 20:43 Dose: 40 mg Documented by: Pantoprazole Sodium 40 mg/ (Sodium Chloride) 10 mls @ 300 mls/hr IV Q24H [facility] Last Admin: 06/12/20 20:43 Dose: 300 mls/hr Documented by: Ceftriaxone Sodium/Dextrose 1 (gm/ Premix) 50 mls @ 100 mls/hr IV Q24H [facility] Last Admin: 06/12/20 20:44 Dose: 100 mls/hr Documented by: Dextrose/Sodium Chloride (Dextrose 5%-Normal Saline) 1,000 mls @ 125 mls/hr IV ASDIRECTED [facility] Last Admin: 06/13/20 08:16 Dose: 125 mls/hr Documented by: Ketorolac Tromethamine (Toradol) 15 mg IVPUSH Q6H [facility] Last Admin: 06/13/20 10:58 Dose: 15 mg Documented by: Levothyroxine Sodium (Levothyroxine) 75 mcg PO SuTuThSa@0700 [facility] Last Admin: 06/13/20 06:53 Dose: 75 mcg Documented by: Levothyroxine Sodium (Levothyroxine) 112.5 mcg PO MoWeFr@0700 [facility] Memantine (Namenda) 10 mg PO BID [facility] Last Admin: 06/13/20 10:57 Dose: 10 mg Documented by: Olanzapine (Zyprexa) 5 mg PO BEDTIME [facility] Last Admin: 06/12/20 20:44 Dose: 5 mg Documented by: Paroxetine HCl (Paxil) 10 mg PO DAILY [facility] Last Admin: 06/13/20 10:57 Dose: 10 mg Documented by: Ropinirole HCl (Requip) 4 mg PO TID [facility] Last Admin: 06/13/20 06:52 Dose: 4 mg Documented by: Sodium Chloride (Saline Flush) 10 ml FLUSH ASDIRECTED PRN PRN Reason: Keep Vein Open Last Admin: 06/11/20 10:11 Dose: 10 ml Documented by: Sodium Chloride (Saline Flush) 2.5 ml FLUSH ASDIRECTED PRN PRN Reason: Keep Vein Open Last Admin: 06/11/20 10:11 Dose: 2.5 ml Documented by: Discontinued Medications Dexamethasone (Dexamethasone) 6 mg PO DAILY [facility] Last Admin: 06/12/20 12:28 Dose: Not Given Documented by: Docusate Sodium (Colace) 100 mg PO ONETIME ONE Stop: 06/13/20 10:54 Glycerin (Sani-Supp Pediatric) 1.5 gm RECTAL ONETIME ONE Stop: 06/12/20 12:31 Last Admin: 06/12/20 12:43 Dose: 1.5 gm Documented by: Hydromorphone HCl (Dilaudid) 0.5 mg IVPUSH ONETIME ONE Stop: 06/11/20 11:50 Last Admin: 06/11/20 12:10 Dose: 0.5 mg Documented by: Sodium Chloride (Normal Saline) 1,000 mls @ 999 mls/hr IV .Bolus ONE Stop: 06/11/20 14:30 Last Admin: 06/11/20 13:36 Dose: 999 mls/hr Documented by: Sodium Chloride (Normal Saline) 1,000 mls @ 125 mls/hr IV ASDIRECTED [facility] Stop: 06/12/20 19:29 Ibuprofen (Motrin) 400 mg PO BID PRN PRN Reason: Pain Iopamidol (Isovue Multipack-370 (76%)) 80 ml IVPUSH ONETIME STA Stop: 06/11/20 11:18 Last Admin: 06/11/20 11:19 Dose: 80 ml Documented by: Ketorolac Tromethamine (Toradol) 15 mg IVPUSH Q4H [facility] Stop: 06/12/20 19:39 Last Admin: 06/12/20 04:32 Dose: 15 mg Documented by: Morphine Sulfate (Morphine) 4 mg IVPUSH ONETIME ONE Stop: 06/11/20 09:44 Last Admin: 06/11/20 10:10 Dose: 4 mg Documented by: Morphine Sulfate (Morphine) 1 mg IVPUSH ONETIME ONE Stop: 06/11/20 19:39 Last Admin: 06/11/20 20:55 Dose: 1 mg Documented by: Ondansetron HCl (Zofran) 4 mg IVPUSH ONETIME ONE Stop: 06/11/20 09:44 Last Admin: 06/11/20 10:11 Dose: 4 mg Documented by: Senna/Docusate Sodium (Senna Plus) 1 tab PO ONETIME ONE Stop: 06/11/20 20:07 Last Admin: 06/11/20 21:18 Dose: Not Given Documented by: - Exam Quality Assessment: Supplemental Oxygen (1L ) General: Alert, Oriented HEENT: Pupils Equal, EOMI, Mucous Membr. Moist/[place] Neck: Supple, Trachea Midline, No JVD, No Thyromegaly Lungs: Clear to Auscultation, Normal Respiratory Effort. No: Crackles, Rales, Rhonchi, Stridor, Wheezing Cardiovascular: Regular Rate, Regular Rhythm, No Murmurs GI/Abdominal Exam: Normal Bowel Sounds, Soft, Non-Tender, No Organomegaly, No Distention, No Abnormal Bruit, No Mass. No: Guarding, Rigid, Rebound (not guarding anymore, no longer rigid in RLQ which was prev noted on day of admission) Extremities: Normal Inspection, No Pedal Edema, Normal Capillary Refill Peripheral Pulses: 2+: Dorsalis Pedis (L), Dorsalis Pedis (R) Skin: Warm, Dry Wound/Incisions: Healing Well Neurological: No New Focal Deficit Psy/Mental Status: Alert, Normal Affect, Normal Mood Sepsis Event Note - Evaluation Sepsis Screening Result: No Definite Risk - Focused Exam Vital Signs: Vital Signs Temp Pulse Resp BP Pulse Ox 06/13/20 08:00 97.8 F 71 14 98/56 L 97 06/13/20 03:09 97.6 F 76 16 136/83 97 06/13/20 00:00 98.6 F 76 16 90/54 L 92 L - Problem List & Annotations (1) Ileus SNOMED Code(s): 842149717 Code(s): K56.7 - ILEUS, UNSPECIFIED Status: Acute Current Visit: Yes (2) COVID-19 SNOMED Code(s): 310215353 Code(s): U07.1 - COVID-19 Status: Acute Current Visit: Yes (3) Acute cystitis SNOMED Code(s): 03736659 Code(s): N30.00 - ACUTE CYSTITIS WITHOUT HEMATURIA Status: Acute Current Visit: Yes - Problem List Review Problem List Initiated/Reviewed/Updated: Yes - My Orders Last 24 Hours: My Active Orders 06/12/20 12:53 Resuscitation Status Routine 06/12/20 12:54 Communication Order [RC] ROUTINE 06/12/20 13:45 Dextrose 5%-0.9% NaCl [Dextrose 5%-Normal Saline] 1,000 ml IV ASDIRECTED 06/13/20 07:00 Levothyroxine 75 mcg PO SuTuThSa@0700 06/13/20 10:50 Abdomen 1V Flat [CR] Routine 06/13/20 Lunch Clear Liquid Diet [DIET] 06/14/20 05:11 CBC WITH AUTO DIFF [HEME] AM COMPREHENSIVE METABOLIC PN,CMP [CHEM] AM 06/14/20 07:00 Levothyroxine 112.5 mcg PO MoWeFr@0700 - Plan Plan:: 75 y/o F with PMHx of Alzheimer's dementia, Parkinsons, HLD, Hypothyroidism is COVID +, presented with decreased appetite, increased abdominal pain, no bowel movements in last 4 days was brought in with fever; since has been afebrile until last night. Was given Tylenol and remained afebrile thereafter. Is currently being treated for Ileus, UTI, and Covid 19 withour respiratory symptoms currently on 1L nasal cannula today. 1. Ileus- -Prev noted CT abdomen with no obstruction in small or large bowel. Diffuse gaseous distention of both small and large bowel with some fecal retention. -Will initiate clear liquid diet today. Since pt is non-communicative we will need to use imaging to asses changes in her gut. On physical exam her abdomen is no longer rigid, she does not appear to be guarding or moaning/ in any obvious discomfort. She is more at her baseline, still has not had a bowel movement. Therefore we will try giving her docusate senna orally again today. Get an Abdo Xray and if no obstruction noted we may consider advancing her diet to soft mechanical. Post imaging and as per her behavious wewill consider whether we need to continue with 15 mg Toradol Q6H [facility] for pain. 2. Covid 19- dexamethasone IV, 1L O2 support ,no resp symptoms noted, pulmonary physical exam was normal. Will continue to wean as tolerated, while continuing to monitor Vital signs closely. 3. Acute cystitis: no wbc, no fever, does not appear to have supra pubic tenderness, no CVA tenderness b/l. UA prev had + nitrites, trace occult blood, and few bacteria. Difficult to assess symptoms due to pmh. Will continue to treat with Rochephin 1G for total of 5 days. Pt incontinent therefore Tapia in place. 4.Mild hypoglycemia, resolved with Dextrose NS 1L at 125cc/hr. We will continue to hydrate again today. Bedrest, NPO, Pantoprazole 40mg Q24H GI ppx, Enoxaparin 40mg Q24H DVT ppx. <Harris Rodgers - Last Filed: 06/13/20 13:14> - Patient Data Vitals - Most Recent: Last Vital Signs Temp 37.2 C 06/13/20 11:30 Pulse 77 06/13/20 12:41 Resp 14 06/13/20 11:30 BP 129/57 L 06/13/20 11:30 Pulse Ox 93 L 06/13/20 12:41 I&O - Last 24 Hours: Intake & Output 06/12/20 06/13/20 06/13/20 22:59 06:59 14:59 Intake Total 450 2060 Output Total 675 Balance -225 2060 Lab Results Last 24 Hours: Laboratory Results - last 24 hr 06/13/20 06/13/20 Range/Units 06:30 06:30 WBC 6.13 (4.0-11.0) K/uL RBC 3.99 L (4.30-5.90) M/uL Hgb 12.1 (12.0-16.0) g/dL Hct 36.4 (36.0-46.0) % MCV 91.2 (80.0-98.0) fL MCH 30.3 (27.0-32.0) pg MCHC 33.2 (31.0-37.0) g/dL RDW Std Deviation 45.0 (28.0-62.0) fl RDW Coeff of Jordi 14 (11.0-15.0) % Plt Count 214 (150-400) K/uL MPV 10.20 (7.40-12.00) fL Neut % (Auto) 76.9 (48.0-80.0) % Lymph % (Auto) 15.7 L (16.0-40.0) % [place] % (Auto) 6.9 (0.0-15.0) % Eos % (Auto) 0.0 (0.0-7.0) % Baso % (Auto) 0.5 (0.0-1.5) % Neut # (Auto) 4.7 (1.4-5.7) K/uL Lymph # (Auto) 1.0 (0.6-2.4) K/uL [place] # (Auto) 0.4 (0.0-0.8) K/uL Eos # (Auto) 0.0 (0.0-0.7) K/uL Baso # (Auto) 0.0 (0.0-0.1) K/uL Nucleated RBC % 0.0 /100WBC Nucleated RBCs # 0 K/uL Sodium 139 (136-145) mmol/L Potassium 3.9 (3.5-5.1) mmol/L Chloride 106 (98-107) mmol/L Carbon Dioxide 25.8 (21.0-32.0) mmol/L BUN 8 (7.0-18.0) mg/dL Creatinine 0.6 (0.6-1.0) mg/dL Est Cr Clr Drug Dosing 64.66 mL/min Estimated GFR (MDRD) > 60.0 ml/min Glucose 98 (74-106) mg/dL Calcium 8.3 L (8.5-10.1) mg/dL Total Bilirubin 0.4 (0.2-1.0) mg/dL AST 88 H (15-37) IU/L ALT 25 (14-63) IU/L Alkaline Phosphatase 157 H (46-116) U/L Total Protein 6.3 L (6.4-8.2) g/dL Albumin 3.1 L (3.4-5.0) g/dL Globulin 3.2 (2.6-4.0) g/dL Albumin/Globulin Ratio 1.0 (0.9-1.6) Med Orders - Current: Current Medications Acetaminophen (Tylenol Extra Strength) 500 mg PO Q6H PRN PRN Reason: Pain/Fever Last Admin: 06/12/20 21:55 Dose: 500 mg Documented by: Amitriptyline HCl (Elavil) 10 mg PO BEDTIME [facility] Last Admin: 06/12/20 21:50 Dose: 10 mg Documented by: Baclofen (Lioresal) 10 mg PO TID [facility] Last Admin: 06/13/20 06:53 Dose: 10 mg Documented by: Carbidopa/Levodopa (Sinemet 25-100 Mg) 2 tab PO TID [facility] Last Admin: 06/13/20 06:54 Dose: 2 tab Documented by: Dexamethasone (Dexamethasone) 6 mg IVPUSH Q24H [facility] Last Admin: 06/13/20 11:35 Dose: 6 mg Documented by: Enoxaparin Sodium (Lovenox) 40 mg SUBCUT Q24H [facility] Last Admin: 06/12/20 20:43 Dose: 40 mg Documented by: Pantoprazole Sodium 40 mg/ (Sodium Chloride) 10 mls @ 300 mls/hr IV Q24H [facility] Last Admin: 06/12/20 20:43 Dose: 300 mls/hr Documented by: Ceftriaxone Sodium/Dextrose 1 (gm/ Premix) 50 mls @ 100 mls/hr IV Q24H [facility] Last Admin: 06/12/20 20:44 Dose: 100 mls/hr Documented by: Dextrose/Sodium Chloride (Dextrose 5%-Normal Saline) 1,000 mls @ 125 mls/hr IV ASDIRECTED [facility] Last Admin: 06/13/20 08:16 Dose: 125 mls/hr Documented by: Ketorolac Tromethamine (Toradol) 15 mg IVPUSH Q6H [facility] Last Admin: 06/13/20 10:58 Dose: 15 mg Documented by: Levothyroxine Sodium (Levothyroxine) 75 mcg PO SuTuThSa@0700 [facility] Last Admin: 06/13/20 06:53 Dose: 75 mcg Documented by: Levothyroxine Sodium (Levothyroxine) 112.5 mcg PO MoWeFr@0700 [facility] Memantine (Namenda) 10 mg PO BID [facility] Last Admin: 06/13/20 10:57 Dose: 10 mg Documented by: Olanzapine (Zyprexa) 5 mg PO BEDTIME [facility] Last Admin: 06/12/20 20:44 Dose: 5 mg Documented by: Paroxetine HCl (Paxil) 10 mg PO DAILY [facility] Last Admin: 06/13/20 10:57 Dose: 10 mg Documented by: Ropinirole HCl (Requip) 4 mg PO TID [facility] Last Admin: 06/13/20 06:52 Dose: 4 mg Documented by: Sodium Chloride (Saline Flush) 10 ml FLUSH ASDIRECTED PRN PRN Reason: Keep Vein Open Last Admin: 06/11/20 10:11 Dose: 10 ml Documented by: Sodium Chloride (Saline Flush) 2.5 ml FLUSH ASDIRECTED PRN PRN Reason: Keep Vein Open Last Admin: 06/11/20 10:11 Dose: 2.5 ml Documented by: Discontinued Medications Dexamethasone (Dexamethasone) 6 mg PO DAILY [facility] Last Admin: 06/12/20 12:28 Dose: Not Given Documented by: Docusate Sodium (Colace) 100 mg PO ONETIME ONE Stop: 06/13/20 10:54 Last Admin: 06/13/20 11:09 Dose: 100 mg Documented by: Glycerin (Sani-Supp Pediatric) 1.5 gm RECTAL ONETIME ONE Stop: 06/12/20 12:31 Last Admin: 06/12/20 12:43 Dose: 1.5 gm Documented by: Hydromorphone HCl (Dilaudid) 0.5 mg IVPUSH ONETIME ONE Stop: 06/11/20 11:50 Last Admin: 06/11/20 12:10 Dose: 0.5 mg Documented by: Sodium Chloride (Normal Saline) 1,000 mls @ 999 mls/hr IV .Bolus ONE Stop: 06/11/20 14:30 Last Admin: 06/11/20 13:36 Dose: 999 mls/hr Documented by: Sodium Chloride (Normal Saline) 1,000 mls @ 125 mls/hr IV ASDIRECTED [facility] Stop: 06/12/20 19:29 Ibuprofen (Motrin) 400 mg PO BID PRN PRN Reason: Pain Iopamidol (Isovue Multipack-370 (76%)) 80 ml IVPUSH ONETIME STA Stop: 06/11/20 11:18 Last Admin: 06/11/20 11:19 Dose: 80 ml Documented by: Ketorolac Tromethamine (Toradol) 15 mg IVPUSH Q4H [facility] Stop: 06/12/20 19:39 Last Admin: 06/12/20 04:32 Dose: 15 mg Documented by: Morphine Sulfate (Morphine) 4 mg IVPUSH ONETIME ONE Stop: 06/11/20 09:44 Last Admin: 06/11/20 10:10 Dose: 4 mg Documented by: Morphine Sulfate (Morphine) 1 mg IVPUSH ONETIME ONE Stop: 06/11/20 19:39 Last Admin: 06/11/20 20:55 Dose: 1 mg Documented by: Ondansetron HCl (Zofran) 4 mg IVPUSH ONETIME ONE Stop: 06/11/20 09:44 Last Admin: 06/11/20 10:11 Dose: 4 mg Documented by: Senna/Docusate Sodium (Senna Plus) 1 tab PO ONETIME ONE Stop: 06/11/20 20:07 Last Admin: 06/11/20 21:18 Dose: Not Given Documented by: Sepsis Event Note - Focused Exam Vital Signs: Vital Signs Temp Pulse Resp BP BP Pulse Ox 06/13/20 12:41 77 93 L 06/13/20 11:30 37.2 C 71 14 129/57 L 95 06/13/20 08:00 36.6 C 71 14 98/56 L 97 06/13/20 03:09 36.4 C 76 16 136/83 97 - My Orders Last 24 Hours: My Active Orders 06/12/20 21:13 Acetaminophen [Tylenol Extra Strength] 500 mg PO Q6H PRN - Plan Plan:: I have seen and evaluated the patient and agree with the residents note unless specified in my note
[2020-06-13] MEDS: Dexamethasone 10 MG/ML SDV IVPUSH SCH (11:35)
--- NOTE | 2020-06-13 11:51 | CR ---
INDICATION: Previous ileus; rule out fecal impaction. COMPARISON: CT abdomen and pelvis June 11, 2020. Technique: KUB . Findings: Cholelithiasis. Nonspecific intestinal gas pattern without any evidence of intestinal obstruction. Resolving ileus when compared to the previous study. Copious amounts of retained stool throughout the colon. IMPRESSION: 1. Copious amounts of retained stool throughout the colon. 2. Resolving ileus. 3. Gallstones. Dictated by Gautam Alvarado MD @ Jun 13 2020 11:45AM Signed by Dr. Gautam Alvarado @ Jun 13 2020 11:48AM
[2020-06-13] MEDS ORDERED: Polyethylene Glycol 3350 Powder 17 GM Packet PO ONE (13:38)
[2020-06-13] MEDS: Amitriptyline 10 MG Tab PO SCH (20:07)
[2020-06-13] MEDS: OLANZapine 5 MG Tab PO SCH (20:07)
[2020-06-13] MEDS: Pantoprazole 40 MG in Sodium Chloride 0.9% 10 ML IV SCH (20:08)
[2020-06-13] MEDS: Enoxaparin 40 MG/0.4 ML Syringe SUBCUT SCH (20:09)
[2020-06-13] MEDS: cefTRIAXone 1 GM in Premix Bag 1 BAG IV SCH (20:12)
[2020-06-14] MEDS: Dextrose 5%-0.9% NaCl 1,000 ML IV SCH (02:00)
[2020-06-14] MEDS: rOPINIRole 1 MG Tab PO SCH ×3 (05:34→22:22)
[2020-06-14] MEDS: Ketorolac 15 MG/ML SDV IVPUSH PRN ×3 (05:35→21:01)
[2020-06-14] MEDS: Acetaminophen 500 MG Tab PO PRN (05:46)
[2020-06-14] MEDS: Carbidopa/Levodopa 25-100 MG Tab PO SCH ×3 (05:48→22:21)
[2020-06-14] MEDS: Baclofen 10 MG Tab PO SCH ×3 (05:49→22:22)
[2020-06-14] MEDS ORDERED: Levothyroxine 75 MCG Tab PO SCH (07:00)
[2020-06-14 07:28] LABS: BLOOD UREA NITROGEN,BUN 4 mg/dL (7.0-18.0); CARBON DIOXIDE,CO2 20.1 mmol/L (21.0-32.0); CHLORIDE,CL 104 mmol/L (98-107); GLUCOSE RANDOM 135 mg/dL (74-106); POTASSIUM,K 2.7 mmol/L (3.5-5.1); SODIUM,NA 137 mmol/L (136-145)
[2020-06-14] MEDS ORDERED: Glycerin Pediatric 1.2 GM Supp RECTAL ONE (08:10)
[2020-06-14] MEDS: Memantine 10 MG Tab PO SCH ×2 (10:00→21:10)
[2020-06-14] MEDS ORDERED: Magnesium Citrate Solution 296 ML Bottle PO ONE (10:06)
[2020-06-14] MEDS ORDERED: Sodium Chloride 0.9% with KCl 1,000 ML IV ONE (10:30)
[2020-06-14] MEDS ORDERED: Magnesium Hydroxide 400 MG/5 ML Susp 30 ML Cup PO ONE (11:32)
[2020-06-14] MEDS: Dexamethasone 10 MG/ML SDV IVPUSH SCH (12:59)
--- NOTE | 2020-06-14 15:02 | PCM.PN ---
- General Info Date of Service: 06/14/20 Subjective Update: January Johana Conrad is a 75 y/o F with being treated for Ileus, UTI and is COVID 19 positive. She was doing much better yesterday, starting being communicative, and didn't appear to be in pain. She was tolerating a soft mechanical diet. However, overnight she developed a fever. Was given tylenol, cold cloths and cooling with ice in her axilla. Fever resolved then reiniiated later this morning. Given Tylenol again and all supportive measures. Pt still has not had a bowel movement. We are unable to assess if she has been passing gas at this time due to being non-communicative secondary to her h/o advanced Alzheimer's dementia and Parkinson's disease. Functional Status: Reports: Pain Controlled, Tolerating Diet. Denies: New Symptoms - Review of Systems General: Reports: Fever HEENT: Reports: No Symptoms Pulmonary: Reports: No Symptoms Cardiovascular: Reports: No Symptoms Gastrointestinal: Reports: Abdominal Pain. Denies: Diarrhea (difficult to assess since pt is non verbal with advanced alzheimers/ parkinson's dx. But with fever was moaning again while guarding her belly ), Nausea, Vomiting Genitourinary: Reports: No Symptoms Musculoskeletal: Reports: No Symptoms Skin: Reports: No Symptoms Neurological: Reports: No Symptoms - Patient Data Vitals - Most Recent: Last Vital Signs Temp 97.0 F 06/14/20 12:15 Pulse 83 06/14/20 12:15 Resp 18 06/14/20 12:15 BP 94/58 L 06/14/20 12:15 Pulse Ox 94 L 06/14/20 12:15 Weight - Most Recent: 115 lb I&O - Last 24 Hours: Intake & Output 06/14/20 06/14/20 06/14/20 06:59 14:59 22:59 Intake Total 30 Output Total 1650 Balance -1620 Lab Results Last 24 Hours: Laboratory Results - last 24 hr 06/14/20 06/14/20 Range/Units 06:12 06:12 WBC 5.70 (4.0-11.0) K/uL RBC 3.70 L (4.30-5.90) M/uL Hgb 10.9 L (12.0-16.0) g/dL Hct 32.4 L (36.0-46.0) % MCV 87.6 (80.0-98.0) fL MCH 29.5 (27.0-32.0) pg MCHC 33.6 (31.0-37.0) g/dL RDW Std Deviation 43.0 (28.0-62.0) fl RDW Coeff of Jordi 14 (11.0-15.0) % Plt Count 197 (150-400) K/uL MPV 10.10 (7.40-12.00) fL Neut % (Auto) 89.3 H (48.0-80.0) % Lymph % (Auto) 6.5 L (16.0-40.0) % [place] % (Auto) 4.0 (0.0-15.0) % Eos % (Auto) 0.0 (0.0-7.0) % Baso % (Auto) 0.2 (0.0-1.5) % Neut # (Auto) 5.1 (1.4-5.7) K/uL Lymph # (Auto) 0.4 L (0.6-2.4) K/uL [place] # (Auto) 0.2 (0.0-0.8) K/uL Eos # (Auto) 0.0 (0.0-0.7) K/uL Baso # (Auto) 0.0 (0.0-0.1) K/uL Nucleated RBC % 0.0 /100WBC Nucleated RBCs # 0 K/uL Sodium 137 (136-145) mmol/L Potassium 2.7 L (3.5-5.1) mmol/L Chloride 104 (98-107) mmol/L Carbon Dioxide 20.1 L (21.0-32.0) mmol/L BUN 4 L (7.0-18.0) mg/dL Creatinine 0.7 (0.6-1.0) mg/dL Est Cr Clr Drug Dosing 55.42 mL/min Estimated GFR (MDRD) > 60.0 ml/min Glucose 135 H (74-106) mg/dL Calcium 7.5 L (8.5-10.1) mg/dL Total Bilirubin 0.5 (0.2-1.0) mg/dL AST 71 H (15-37) IU/L ALT 17 (14-63) IU/L Alkaline Phosphatase 124 H (46-116) U/L Total Protein 5.7 L (6.4-8.2) g/dL Albumin 2.7 L (3.4-5.0) g/dL Globulin 3.0 (2.6-4.0) g/dL Albumin/Globulin Ratio 0.9 (0.9-1.6) Med Orders - Current: Current Medications Acetaminophen (Tylenol Extra Strength) 500 mg PO Q6H PRN PRN Reason: Pain/Fever Last Admin: 06/14/20 05:46 Dose: 500 mg Documented by: Amitriptyline HCl (Elavil) 10 mg PO BEDTIME [facility] Last Admin: 06/13/20 20:07 Dose: 10 mg Documented by: Baclofen (Lioresal) 10 mg PO TID [facility] Last Admin: 06/14/20 13:55 Dose: 10 mg Documented by: Carbidopa/Levodopa (Sinemet 25-100 Mg) 2 tab PO TID [facility] Last Admin: 06/14/20 13:55 Dose: 2 tab Documented by: Dexamethasone (Dexamethasone) 6 mg IVPUSH Q24H [facility] Last Admin: 06/14/20 12:59 Dose: 6 mg Documented by: Enoxaparin Sodium (Lovenox) 40 mg SUBCUT Q24H [facility] Last Admin: 06/13/20 20:09 Dose: 40 mg Documented by: Pantoprazole Sodium 40 mg/ (Sodium Chloride) 10 mls @ 300 mls/hr IV Q24H [facility] Last Admin: 06/13/20 20:08 Dose: 300 mls/hr Documented by: Ceftriaxone Sodium/Dextrose 1 (gm/ Premix) 50 mls @ 100 mls/hr IV Q24H [facility] Last Admin: 06/13/20 20:12 Dose: 100 mls/hr Documented by: Ketorolac Tromethamine (Toradol) 15 mg IVPUSH Q6H PRN PRN Reason: Pain (moderate 4-6) Stop: 06/18/20 16:43 Last Admin: 06/14/20 12:50 Dose: 15 mg Documented by: Levothyroxine Sodium (Levothyroxine) 75 mcg PO SuTuThSa@0700 [facility] Last Admin: 06/13/20 06:53 Dose: 75 mcg Documented by: Levothyroxine Sodium (Levothyroxine) 112.5 mcg PO MoWeFr@0700 [facility] Last Admin: 06/14/20 08:45 Dose: 112.5 mcg Documented by: Memantine (Namenda) 10 mg PO BID [facility] Last Admin: 06/14/20 10:00 Dose: 10 mg Documented by: Olanzapine (Zyprexa) 5 mg PO BEDTIME [facility] Last Admin: 06/13/20 20:07 Dose: 5 mg Documented by: Paroxetine HCl (Paxil) 10 mg PO DAILY [facility] Last Admin: 06/14/20 10:00 Dose: 10 mg Documented by: Ropinirole HCl (Requip) 4 mg PO TID [facility] Last Admin: 06/14/20 13:55 Dose: 4 mg Documented by: Sodium Chloride (Saline Flush) 10 ml FLUSH ASDIRECTED PRN PRN Reason: Keep Vein Open Last Admin: 06/11/20 10:11 Dose: 10 ml Documented by: Sodium Chloride (Saline Flush) 2.5 ml FLUSH ASDIRECTED PRN PRN Reason: Keep Vein Open Last Admin: 06/11/20 10:11 Dose: 2.5 ml Documented by: Discontinued Medications Dexamethasone (Dexamethasone) 6 mg PO DAILY [facility] Last Admin: 06/12/20 12:28 Dose: Not Given Documented by: Docusate Sodium (Colace) 100 mg PO ONETIME ONE Stop: 06/13/20 10:54 Last Admin: 06/13/20 11:09 Dose: 100 mg Documented by: Glycerin (Sani-Supp Pediatric) 1.5 gm RECTAL ONETIME ONE Stop: 06/12/20 12:31 Last Admin: 06/12/20 12:43 Dose: 1.5 gm Documented by: Glycerin (Sani-Supp Pediatric) 1.5 gm RECTAL ONETIME ONE Stop: 06/14/20 08:11 Last Admin: 06/14/20 08:40 Dose: 1.5 gm Documented by: Hydromorphone HCl (Dilaudid) 0.5 mg IVPUSH ONETIME ONE Stop: 06/11/20 11:50 Last Admin: 06/11/20 12:10 Dose: 0.5 mg Documented by: Sodium Chloride (Normal Saline) 1,000 mls @ 999 mls/hr IV .Bolus ONE Stop: 06/11/20 14:30 Last Admin: 06/11/20 13:36 Dose: 999 mls/hr Documented by: Sodium Chloride (Normal Saline) 1,000 mls @ 125 mls/hr IV ASDIRECTED PEREZ Stop: 06/12/20 19:29 Dextrose/Sodium Chloride (Dextrose 5%-Normal Saline) 1,000 mls @ 125 mls/hr IV ASDIRECTED [facility] Last Admin: 06/14/20 02:00 Dose: 125 mls/hr Documented by: Potassium Chloride/Sodium Chloride (Normal Saline With 40 Meq Kcl) 1,000 mls @ 250 mls/hr IV ONETIME ONE Stop: 06/14/20 14:29 Last Admin: 06/14/20 12:15 Dose: 250 mls/hr Documented by: Ibuprofen (Motrin) 400 mg PO BID PRN PRN Reason: Pain Iopamidol (Isovue Multipack-370 (76%)) 80 ml IVPUSH ONETIME STA Stop: 06/11/20 11:18 Last Admin: 06/11/20 11:19 Dose: 80 ml Documented by: Ketorolac Tromethamine (Toradol) 15 mg IVPUSH Q4H PEREZ Stop: 06/12/20 19:39 Last Admin: 06/12/20 04:32 Dose: 15 mg Documented by: Ketorolac Tromethamine (Toradol) 15 mg IVPUSH Q6H [facility] Last Admin: 06/13/20 16:14 Dose: 15 mg Documented by: Magnesium Citrate (Citrate Of Magnesia) 150 ml PO ONETIME ONE Stop: 06/14/20 10:07 Magnesium Hydroxide (Milk Of Magnesia) 30 ml PO ONETIME ONE Stop: 06/14/20 11:33 Last Admin: 06/14/20 12:31 Dose: 30 ml Documented by: Morphine Sulfate (Morphine) 4 mg IVPUSH ONETIME ONE Stop: 06/11/20 09:44 Last Admin: 06/11/20 10:10 Dose: 4 mg Documented by: Morphine Sulfate (Morphine) 1 mg IVPUSH ONETIME ONE Stop: 06/11/20 19:39 Last Admin: 06/11/20 20:55 Dose: 1 mg Documented by: Ondansetron HCl (Zofran) 4 mg IVPUSH ONETIME ONE Stop: 06/11/20 09:44 Last Admin: 06/11/20 10:11 Dose: 4 mg Documented by: Polyethylene Glycol (Miralax) 17 gm PO ONETIME ONE Stop: 06/13/20 13:39 Last Admin: 06/13/20 14:13 Dose: 17 gm Documented by: Senna/Docusate Sodium (Senna Plus) 1 tab PO ONETIME ONE Stop: 06/11/20 20:07 Last Admin: 06/11/20 21:18 Dose: Not Given Documented by: - Exam General: Alert, Oriented HEENT: Pupils Equal, Pupils Reactive, EOMI, Mucous Membr. Moist/[place] Neck: Supple, No JVD Lungs: Clear to Auscultation, Normal Respiratory Effort Cardiovascular: Regular Rate, Regular Rhythm GI/Abdominal Exam: Normal Bowel Sounds, Soft, Non-Tender, No Organomegaly, No Distention, No Abnormal Bruit, No Mass Extremities: Normal Inspection, No Pedal Edema, Normal Capillary Refill Peripheral Pulses: 2+: Dorsalis Pedis (L), Dorsalis Pedis (R) Skin: Warm, Dry Neurological: No New Focal Deficit Psy/Mental Status: Normal Affect, Normal Mood (patients baseline ). No: Alert Sepsis Event Note - Evaluation Sepsis Screening Result: No Definite Risk - Focused Exam Vital Signs: Vital Signs Temp Temp Pulse Resp BP BP Pulse Ox 06/14/20 12:15 97.0 F 83 18 94/58 L 94 L 06/14/20 09:55 98.1 F 80 20 100/52 L 94 L 06/14/20 08:45 99.8 F 06/14/20 08:35 100.5 F 06/14/20 06:16 99.8 F 06/14/20 06:00 98.8 F 06/14/20 05:46 216.5 F H 06/14/20 05:30 102.5 F H 91 22 H 122/82 92 L - Problem List & Annotations (1) Ileus SNOMED Code(s): 931774558 Code(s): K56.7 - ILEUS, UNSPECIFIED Status: Acute Current Visit: Yes (2) COVID-19 SNOMED Code(s): 890486949 Code(s): U07.1 - COVID-19 Status: Acute Current Visit: Yes (3) Acute cystitis SNOMED Code(s): 37782937 Code(s): N30.00 - ACUTE CYSTITIS WITHOUT HEMATURIA Status: Acute Current Visit: Yes - Problem List Review Problem List Initiated/Reviewed/Updated: Yes - My Orders Last 24 Hours: My Active Orders 06/13/20 16:42 Ketorolac [Toradol] 15 mg IVPUSH Q6H PRN 06/14/20 07:00 Levothyroxine 112.5 mcg PO MoWeFr@0700 06/14/20 15:00 POTASSIUM,K [CHEM] Routine 06/15/20 05:11 CBC WITH AUTO DIFF [HEME] AM COMPREHENSIVE METABOLIC PN,CMP [CHEM] AM MAGNESIUM [CHEM] AM PHOSPHORUS [CHEM] AM - Plan Plan:: Johana Conrad is a 75 y/o F. Being treated for a now resolving ileus with stool compaction. 1. Abdominal ileus: still no bowel movement, will give milk of magnesium, glycerine suppository, fluids, back to clear liquid diet. If no bowel movement within the day may need to consider manual disimpaction. 2. Hypokalemia: 2.7, replete with 60 meq total via IV + fluids. Will initiate 40 premix rider bag, f/u later today and replete as necessary. 3.Covid 19: no resp symptoms, new onset fever, will continue to monitor closely, wait for BM, continue dexamethasone, one more dose of remdesivir since pt is now on R.A. Follow quarantine when pt is discharged. Called and notified that she will be staying to be further treated. I have seen and evaluated the patient and agree with the residents note unless specified in my note
[2020-06-14] MEDS ORDERED: Bisacodyl 10 MG Supp RECTAL ONE (16:22)
[2020-06-14] MEDS ORDERED: Dextrose 5%-Lact Ringers w/KCl 1,000 ML IV SCH (17:00)
--- NOTE | 2020-06-14 18:31 | PCM.CONS ---
H&P History of Present Illness - General Date of Service: 06/14/20 Admit Problem/Dx: Admission Diagnosis/Problem Admission Diagnosis/Problem Abdominal pain Source of Information: Old Records - History of Present Illness Initial Comments - Free Text/Narative: 75 yo WF admitted for poor feeding 4 days ago, does not have a BM X 4 days; surgery was called; abd ct/xray showed stool impaction; pt is parkinson and alzhemir, not communicate; pt was covid +ve on this admission Onset of Symptoms: Reports: Unknown/Unsure Duration of Symptoms: Reports: Day(s): - Related Data Allergies/Adverse Reactions: Allergies Allergy/AdvReac Type Severity Reaction Status Date / Time No Known Allergies Allergy Verified 06/11/20 18:37 Home Medications: Home Meds Amitriptyline [Elavil] 10 mg PO BEDTIME 04/28/17 [History] Levothyroxine 112.5 mcg PO MOWEFR 04/28/17 [History] Memantine HCl 10 mg PO BID 04/28/17 [History] rOPINIRole [Requip] 4 mg PO TID 04/28/17 [History] Carbidopa/Levodopa [Sinemet 25-100 mg] 2 tab PO TID 04/29/17 [History] Baclofen 10 tab PO TID 01/18/19 [History] Levothyroxine 75 mcg PO SUTUTHSA 01/18/19 [History] Baclofen 5 mg PO TID PRN 06/12/20 [History] PARoxetine [Paxil] 10 mg PO DAILY 06/12/20 [History] Past Medical History HEENT History: Reports: Impaired Vision, Other (See Below) Other HEENT History: corrective glasses Cardiovascular History: Reports: High Cholesterol Respiratory History: Reports: None Gastrointestinal History: Reports: Chronic Constipation, GERD Genitourinary History: Reports: Urinary Incontinence 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: Reports: Other OB/BYN History: Tubal ligation Musculoskeletal History: Reports: None Neurological History: Reports: Alzheimers Disease, Parkinson's Psychiatric History: Reports: Alzheimers Disease, Anxiety, Dementia Endocrine/Metabolic History: Reports: Hypothyroidism Hematologic History: Reports: None Oncologic (Cancer) History: Reports: None - Infectious Disease History Infectious Disease History: Reports: Other (See Below) Other Infectious Disease History: unknown - Past Surgical History Cardiovascular Surgical History: Reports: None Female Surgical History: Reports: None Musculoskeletal Surgical History: Reports: None Social & Family History - Family History Family Medical History: Noncontributory - Tobacco Use Tobacco Use Status *Q: Never Tobacco User - Caffeine Use Caffeine Use: Reports: None Caffeine Use Comment: very seldom coffee, occassonally tea - Recreational Drug Use Recreational Drug Use: No - Living Situation & Occupation Living situation: Reports: with Spouse Occupation: Retired H&P Review of Systems - Review of Systems: Review Of Systems: Unable To Obtain Reason Not Obtained: pt is not verbally communicative Exam - Exam Exam: See Below - Vital Signs Vital Signs: Last Vital Signs Temp 97.7 F 06/14/20 15:18 Pulse 73 06/14/20 15:18 Resp 18 06/14/20 15:18 BP 101/60 06/14/20 15:18 Pulse Ox 93 L 06/14/20 15:18 Weight: 115 lb - Exam GI/Abdominal Exam: Soft, Non-Tender, No Organomegaly, No Distention (no facial grimmick upon palpation) - Patient Data Lab Results Last 24 hrs: Laboratory Results - last 24 hr 06/14/20 06/14/20 06/14/20 Range/Units 06:12 06:12 15:23 WBC 5.70 (4.0-11.0) K/uL RBC 3.70 L (4.30-5.90) M/uL Hgb 10.9 L (12.0-16.0) g/dL Hct 32.4 L (36.0-46.0) % MCV 87.6 (80.0-98.0) fL MCH 29.5 (27.0-32.0) pg MCHC 33.6 (31.0-37.0) g/dL RDW Std Deviation 43.0 (28.0-62.0) fl RDW Coeff of Jordi 14 (11.0-15.0) % Plt Count 197 (150-400) K/uL MPV 10.10 (7.40-12.00) fL Neut % (Auto) 89.3 H (48.0-80.0) % Lymph % (Auto) 6.5 L (16.0-40.0) % [place] % (Auto) 4.0 (0.0-15.0) % Eos % (Auto) 0.0 (0.0-7.0) % Baso % (Auto) 0.2 (0.0-1.5) % Neut # (Auto) 5.1 (1.4-5.7) K/uL Lymph # (Auto) 0.4 L (0.6-2.4) K/uL [place] # (Auto) 0.2 (0.0-0.8) K/uL Eos # (Auto) 0.0 (0.0-0.7) K/uL Baso # (Auto) 0.0 (0.0-0.1) K/uL Nucleated RBC % 0.0 /100WBC Nucleated RBCs # 0 K/uL Sodium 137 (136-145) mmol/L Potassium 2.7 L 3.2 L (3.5-5.1) mmol/L Chloride 104 (98-107) mmol/L Carbon Dioxide 20.1 L (21.0-32.0) mmol/L BUN 4 L (7.0-18.0) mg/dL Creatinine 0.7 (0.6-1.0) mg/dL Est Cr Clr Drug Dosing 55.42 mL/min Estimated GFR (MDRD) > 60.0 ml/min Glucose 135 H (74-106) mg/dL Calcium 7.5 L (8.5-10.1) mg/dL Total Bilirubin 0.5 (0.2-1.0) mg/dL AST 71 H (15-37) IU/L ALT 17 (14-63) IU/L Alkaline Phosphatase 124 H (46-116) U/L Total Protein 5.7 L (6.4-8.2) g/dL Albumin 2.7 L (3.4-5.0) g/dL Globulin 3.0 (2.6-4.0) g/dL Albumin/Globulin Ratio 0.9 (0.9-1.6) Result Diagrams: 06/14/20 06:12 06/14/20 15:23 Sepsis Event Note - Evaluation Sepsis Screening Result: No Definite Risk - Focused Exam Vital Signs: Vital Signs Temp Pulse Resp BP Pulse Ox 06/14/20 15:18 97.7 F 73 18 101/60 93 L 06/14/20 12:15 97.0 F 83 18 94/58 L 94 L 06/14/20 09:55 98.1 F 80 20 100/52 L 94 L 06/14/20 08:45 99.8 F 06/14/20 08:35 100.5 F Consult PN Assessment/Plan Procedures: Procedures ASSAY OF AMYLASE (06/01/17) ASSAY OF FREE THYROXINE (04/28/17) ASSAY OF LIPASE (06/01/17) ASSAY OF MAGNESIUM (04/28/17) ASSAY OF PHOSPHORUS (04/28/17) ASSAY OF TROPONIN QUANT (01/28/18) ASSAY THYROID STIM HORMONE (01/28/18) CHEST X-RAY 1 VIEW FRONTAL (04/28/17) COMP SCREEN MAMMOGRAM ADD-ON (04/20/14) COMPLETE CBC AUTOMATED (04/28/17) COMPLETE CBC W/AUTO DIFF WBC (01/18/19) COMPREHEN METABOLIC PANEL (01/18/19) CT ABD & PELVIS W/O CONTRAST (01/18/19) CT HEAD/BRAIN W/O DYE (01/28/18) DRUG TEST PRSMV DIR OPT OBS (01/28/18) ELECTROCARDIOGRAM TRACING (01/18/19) EMERGENCY DEPT VISIT (01/18/19) EMERGENCY DEPT VISIT (01/28/18) EMERGENCY DEPT VISIT (06/01/17) EMERGENCY DEPT VISIT (04/28/17) HYDRATE IV INFUSION ADD-ON (01/18/19) HYDRATION IV INFUSION INIT (01/18/19) LIPID PANEL (05/12/16) METABOLIC PANEL TOTAL CA (01/28/18) MICROBE SUSCEPTIBLE JAMAL (01/28/18) OCCULT BLOOD FECES (04/18/14) OFFICE/OUTPATIENT VISIT EST (08/20/16) PT EVAL MOD COMPLEX 30 MIN (04/28/17) ROUTINE VENIPUNCTURE (01/18/19) THER/PROPH/DIAG INJ IV PUSH (01/28/18) URINALYSIS AUTO W/SCOPE (01/18/19) URINE BACTERIA CULTURE (01/28/18) URINE CULTURE/COLONY COUNT (06/02/18) X-RAY EXAM CHEST 1 VIEW (01/28/18) X-RAY EXAM HIP UNI 2-3 VIEWS (05/12/16) X-RAY EXAM OF ABDOMEN (06/01/17) (1) Constipation SNOMED Code(s): 92894163 Code(s): K59.00 - CONSTIPATION, UNSPECIFIED Current Visit: No Qualifiers: Constipation type: unspecified constipation type Qualified Code(s): K59.00 - Constipation, unspecified Problem List Initiated/Reviewed/Updated: Yes Plan: 1) upon exam, pt had a mod to large size BM, mar[place] color, followed with completely yellow and well formed brown stool; i did a digital exam by then, pt is fully stool impacted; stool was soft though, not hard; digital stimulation or exam q12 if no stool X 24hrs, and soap/marah/enema prn 2) hold lovenox for gib 3) hold narcotic and supp k to above 4.0 to avoid chemical ileus 4) ok to continue with clear liquid diet X 24 hr, if rosamaria adv to full liquid 5) colace 100mg po qday 6) check h/h q12, 2 large bore iv access, wt pt now and qAM 7) decubitis/aspiration precaution
[2020-06-14] MEDS: cefTRIAXone 1 GM in Premix Bag 1 BAG IV SCH (21:00)
[2020-06-14] MEDS: Amitriptyline 10 MG Tab PO SCH (21:10)
[2020-06-14] MEDS: OLANZapine 5 MG Tab PO SCH (21:10)
[2020-06-15] MEDS: rOPINIRole 1 MG Tab PO SCH ×3 (05:54→21:30)
[2020-06-15] MEDS: Baclofen 10 MG Tab PO SCH ×3 (05:54→21:29)
[2020-06-15] MEDS: Carbidopa/Levodopa 25-100 MG Tab PO SCH ×3 (05:54→21:30)
[2020-06-15] MEDS: Levothyroxine 75 MCG Tab PO SCH (05:59)
[2020-06-15] MEDS: Ketorolac 15 MG/ML SDV IVPUSH PRN ×2 (06:00→11:54)
[2020-06-15 06:49] LABS: BLOOD UREA NITROGEN,BUN 6 mg/dL (7.0-18.0); CARBON DIOXIDE,CO2 22.8 mmol/L (21.0-32.0); CHLORIDE,CL 107 mmol/L (98-107); GLUCOSE RANDOM 75 mg/dL (74-106); POTASSIUM,K 4.5 mmol/L (3.5-5.1); SODIUM,NA 140 mmol/L (136-145)
--- NOTE | 2020-06-15 09:05 | PCM.PN ---
- General Info Date of Service: 06/15/20 Subjective Update: Patient had bowel movements yesterday evening. Patient non-verbal at baseline. No distress noted this AM. - Patient Data Vitals - Most Recent: Last Vital Signs Temp 36.9 C 06/15/20 04:00 Pulse 74 06/15/20 04:00 Resp 16 06/15/20 04:00 BP 115/59 L 06/15/20 04:00 Pulse Ox 92 L 06/15/20 04:00 Weight - Most Recent: 52.163 kg I&O - Last 24 Hours: Intake & Output 06/14/20 06/15/20 06/15/20 22:59 06:59 14:59 Intake Total 1400 726 Output Total 1650 1200 Balance -250 -474 Lab Results Last 24 Hours: Laboratory Results - last 24 hr 06/14/20 06/14/20 06/15/20 Range/Units 15:23 19:05 05:55 WBC 10.82 (4.0-11.0) K/uL RBC 4.04 L (4.30-5.90) M/uL Hgb 10.8 L 12.1 (12.0-16.0) g/dL Hct 32.0 L 35.9 L (36.0-46.0) % MCV 88.9 (80.0-98.0) fL MCH 30.0 (27.0-32.0) pg MCHC 33.7 (31.0-37.0) g/dL RDW Std Deviation 44.7 (28.0-62.0) fl RDW Coeff of Jordi 14 (11.0-15.0) % Plt Count 203 (150-400) K/uL MPV 10.70 (7.40-12.00) fL Neut % (Auto) 86.1 H (48.0-80.0) % Lymph % (Auto) 10.9 L (16.0-40.0) % [place] % (Auto) 2.8 (0.0-15.0) % Eos % (Auto) 0.0 (0.0-7.0) % Baso % (Auto) 0.2 (0.0-1.5) % Neut # (Auto) 9.3 H (1.4-5.7) K/uL Lymph # (Auto) 1.2 (0.6-2.4) K/uL [place] # (Auto) 0.3 (0.0-0.8) K/uL Eos # (Auto) 0.0 (0.0-0.7) K/uL Baso # (Auto) 0.0 (0.0-0.1) K/uL Nucleated RBC % 0.0 /100WBC Nucleated RBCs # 0 K/uL Sodium (136-145) mmol/L Potassium 3.2 L (3.5-5.1) mmol/L Chloride (98-107) mmol/L Carbon Dioxide (21.0-32.0) mmol/L BUN (7.0-18.0) mg/dL Creatinine (0.6-1.0) mg/dL Est Cr Clr Drug Dosing mL/min Estimated GFR (MDRD) ml/min Glucose (74-106) mg/dL Calcium (8.5-10.1) mg/dL Phosphorus (2.6-4.7) mg/dL Magnesium (1.8-2.4) mg/dL Total Bilirubin (0.2-1.0) mg/dL AST (15-37) IU/L ALT (14-63) IU/L Alkaline Phosphatase (46-116) U/L Total Protein (6.4-8.2) g/dL Albumin (3.4-5.0) g/dL Globulin (2.6-4.0) g/dL Albumin/Globulin Ratio (0.9-1.6) 06/15/20 Range/Units 05:55 WBC (4.0-11.0) K/uL RBC (4.30-5.90) M/uL Hgb (12.0-16.0) g/dL Hct (36.0-46.0) % MCV (80.0-98.0) fL MCH (27.0-32.0) pg MCHC (31.0-37.0) g/dL RDW Std Deviation (28.0-62.0) fl RDW Coeff of Jordi (11.0-15.0) % Plt Count (150-400) K/uL MPV (7.40-12.00) fL Neut % (Auto) (48.0-80.0) % Lymph % (Auto) (16.0-40.0) % [place] % (Auto) (0.0-15.0) % Eos % (Auto) (0.0-7.0) % Baso % (Auto) (0.0-1.5) % Neut # (Auto) (1.4-5.7) K/uL Lymph # (Auto) (0.6-2.4) K/uL [place] # (Auto) (0.0-0.8) K/uL Eos # (Auto) (0.0-0.7) K/uL Baso # (Auto) (0.0-0.1) K/uL Nucleated RBC % /100WBC Nucleated RBCs # K/uL Sodium 140 (136-145) mmol/L Potassium 4.5 (3.5-5.1) mmol/L Chloride 107 (98-107) mmol/L Carbon Dioxide 22.8 (21.0-32.0) mmol/L BUN 6 L (7.0-18.0) mg/dL Creatinine 0.6 (0.6-1.0) mg/dL Est Cr Clr Drug Dosing 64.66 mL/min Estimated GFR (MDRD) > 60.0 ml/min Glucose 75 (74-106) mg/dL Calcium 8.0 L (8.5-10.1) mg/dL Phosphorus 2.0 L (2.6-4.7) mg/dL Magnesium 2.0 (1.8-2.4) mg/dL Total Bilirubin 0.5 (0.2-1.0) mg/dL AST 73 H (15-37) IU/L ALT 17 (14-63) IU/L Alkaline Phosphatase 138 H (46-116) U/L Total Protein 6.0 L (6.4-8.2) g/dL Albumin 3.0 L (3.4-5.0) g/dL Globulin 3.0 (2.6-4.0) g/dL Albumin/Globulin Ratio 1.0 (0.9-1.6) Med Orders - Current: Current Medications Acetaminophen (Tylenol Extra Strength) 500 mg PO Q6H PRN PRN Reason: Pain/Fever Last Admin: 06/14/20 05:46 Dose: 500 mg Documented by: Amitriptyline HCl (Elavil) 10 mg PO BEDTIME PEREZ Last Admin: 06/14/20 21:10 Dose: 10 mg Documented by: Baclofen (Lioresal) 10 mg PO TID [facility] Last Admin: 06/15/20 05:54 Dose: 10 mg Documented by: Carbidopa/Levodopa (Sinemet 25-100 Mg) 2 tab PO TID [facility] Last Admin: 06/15/20 05:54 Dose: 2 tab Documented by: Dexamethasone (Dexamethasone) 6 mg IVPUSH Q24H [facility] Last Admin: 06/14/20 12:59 Dose: 6 mg Documented by: Pantoprazole Sodium 40 mg/ (Sodium Chloride) 10 mls @ 300 mls/hr IV Q24H [facility] Last Admin: 06/15/20 00:00 Dose: 300 mls/hr Documented by: Ceftriaxone Sodium/Dextrose 1 (gm/ Premix) 50 mls @ 100 mls/hr IV Q24H [facility] Last Admin: 06/14/20 21:00 Dose: 100 mls/hr Documented by: Ketorolac Tromethamine (Toradol) 15 mg IVPUSH Q6H PRN PRN Reason: Pain (moderate 4-6) Stop: 06/18/20 16:43 Last Admin: 06/15/20 06:00 Dose: 15 mg Documented by: Levothyroxine Sodium (Levothyroxine) 75 mcg PO SuTuThSa@0700 [facility] Last Admin: 06/15/20 05:59 Dose: 75 mcg Documented by: Levothyroxine Sodium (Levothyroxine) 112.5 mcg PO MoWeFr@0700 [facility] Last Admin: 06/14/20 08:45 Dose: 112.5 mcg Documented by: Memantine (Namenda) 10 mg PO BID [facility] Last Admin: 06/14/20 21:10 Dose: 10 mg Documented by: Olanzapine (Zyprexa) 5 mg PO BEDTIME [facility] Last Admin: 06/14/20 21:10 Dose: 5 mg Documented by: Paroxetine HCl (Paxil) 10 mg PO DAILY [facility] Last Admin: 06/14/20 10:00 Dose: 10 mg Documented by: Ropinirole HCl (Requip) 4 mg PO TID [facility] Last Admin: 06/15/20 05:54 Dose: 4 mg Documented by: Sodium Chloride (Saline Flush) 10 ml FLUSH ASDIRECTED PRN PRN Reason: Keep Vein Open Last Admin: 06/11/20 10:11 Dose: 10 ml Documented by: Sodium Chloride (Saline Flush) 2.5 ml FLUSH ASDIRECTED PRN PRN Reason: Keep Vein Open Last Admin: 06/11/20 10:11 Dose: 2.5 ml Documented by: Sodium Phosphate (Neutra-Phos) 250 mg PO QID [facility] Stop: 06/16/20 00:01 Discontinued Medications Bisacodyl (Dulcolax) 10 mg RECTAL ONETIME ONE Stop: 06/14/20 16:23 Last Admin: 06/14/20 17:22 Dose: 10 mg Documented by: Dexamethasone (Dexamethasone) 6 mg PO DAILY [facility] Last Admin: 06/12/20 12:28 Dose: Not Given Documented by: Docusate Sodium (Colace) 100 mg PO ONETIME ONE Stop: 06/13/20 10:54 Last Admin: 06/13/20 11:09 Dose: 100 mg Documented by: Enoxaparin Sodium (Lovenox) 40 mg SUBCUT Q24H [facility] Last Admin: 06/13/20 20:09 Dose: 40 mg Documented by: Glycerin (Sani-Supp Pediatric) 1.5 gm RECTAL ONETIME ONE Stop: 06/12/20 12:31 Last Admin: 06/12/20 12:43 Dose: 1.5 gm Documented by: Glycerin (Sani-Supp Pediatric) 1.5 gm RECTAL ONETIME ONE Stop: 06/14/20 08:11 Last Admin: 06/14/20 08:40 Dose: 1.5 gm Documented by: Hydromorphone HCl (Dilaudid) 0.5 mg IVPUSH ONETIME ONE Stop: 06/11/20 11:50 Last Admin: 06/11/20 12:10 Dose: 0.5 mg Documented by: Sodium Chloride (Normal Saline) 1,000 mls @ 999 mls/hr IV .Bolus ONE Stop: 06/11/20 14:30 Last Admin: 06/11/20 13:36 Dose: 999 mls/hr Documented by: Sodium Chloride (Normal Saline) 1,000 mls @ 125 mls/hr IV ASDIRECTED [facility] Stop: 06/12/20 19:29 Dextrose/Sodium Chloride (Dextrose 5%-Normal Saline) 1,000 mls @ 125 mls/hr IV ASDIRECTED [facility] Last Admin: 06/14/20 02:00 Dose: 125 mls/hr Documented by: Potassium Chloride/Sodium Chloride (Normal Saline With 40 Meq Kcl) 1,000 mls @ 250 mls/hr IV ONETIME ONE Stop: 06/14/20 14:29 Last Admin: 06/14/20 12:15 Dose: 250 mls/hr Documented by: Potassium Cl/Dextrose/Lact Ringer's (D5 Lr With 20 Meq Kcl) 1,000 mls @ 100 mls/hr IV ASDIRECTED [facility] Last Admin: 06/14/20 17:20 Dose: 100 mls/hr Documented by: Ibuprofen (Motrin) 400 mg PO BID PRN PRN Reason: Pain Iopamidol (Isovue Multipack-370 (76%)) 80 ml IVPUSH ONETIME STA Stop: 06/11/20 11:18 Last Admin: 06/11/20 11:19 Dose: 80 ml Documented by: Ketorolac Tromethamine (Toradol) 15 mg IVPUSH Q4H [facility] Stop: 06/12/20 19:39 Last Admin: 06/12/20 04:32 Dose: 15 mg Documented by: Ketorolac Tromethamine (Toradol) 15 mg IVPUSH Q6H [facility] Last Admin: 06/13/20 16:14 Dose: 15 mg Documented by: Magnesium Citrate (Citrate Of Magnesia) 150 ml PO ONETIME ONE Stop: 06/14/20 10:07 Last Admin: 06/15/20 07:26 Dose: Not Given Documented by: Magnesium Hydroxide (Milk Of Magnesia) 30 ml PO ONETIME ONE Stop: 06/14/20 11:33 Last Admin: 06/14/20 12:31 Dose: 30 ml Documented by: Morphine Sulfate (Morphine) 4 mg IVPUSH ONETIME ONE Stop: 06/11/20 09:44 Last Admin: 06/11/20 10:10 Dose: 4 mg Documented by: Morphine Sulfate (Morphine) 1 mg IVPUSH ONETIME ONE Stop: 06/11/20 19:39 Last Admin: 06/11/20 20:55 Dose: 1 mg Documented by: Ondansetron HCl (Zofran) 4 mg IVPUSH ONETIME ONE Stop: 06/11/20 09:44 Last Admin: 06/11/20 10:11 Dose: 4 mg Documented by: Polyethylene Glycol (Miralax) 17 gm PO ONETIME ONE Stop: 06/13/20 13:39 Last Admin: 06/13/20 14:13 Dose: 17 gm Documented by: Senna/Docusate Sodium (Senna Plus) 1 tab PO ONETIME ONE Stop: 06/11/20 20:07 Last Admin: 06/11/20 21:18 Dose: Not Given Documented by: - Exam General: No Acute Distress Lungs: Clear to Auscultation, Normal Respiratory Effort Cardiovascular: Regular Rate, Regular Rhythm GI/Abdominal Exam: Normal Bowel Sounds, Soft, Other (non-verbal at baseline, no distress on palpation of abdomen). No: Rigid Extremities: Normal Inspection, No Pedal Edema Sepsis Event Note - Evaluation Sepsis Screening Result: No Definite Risk - Focused Exam Vital Signs: Vital Signs Temp Pulse Resp BP Pulse Ox 06/15/20 04:00 36.9 C 74 16 115/59 L 92 L 06/15/20 00:02 35.9 C L 70 16 114/63 93 L - Problem List & Annotations (1) Ileus SNOMED Code(s): 227929278 Code(s): K56.7 - ILEUS, UNSPECIFIED Status: Acute Current Visit: Yes (2) COVID-19 SNOMED Code(s): 140152770 Code(s): U07.1 - COVID-19 Status: Acute Current Visit: Yes (3) Constipation SNOMED Code(s): 63728508 Code(s): K59.00 - CONSTIPATION, UNSPECIFIED Status: Acute Current Visit: No Qualifiers: Constipation type: unspecified constipation type Qualified Code(s): K59.00 - Constipation, unspecified (4) Alzheimer disease SNOMED Code(s): 49065905 Code(s): G30.9 - ALZHEIMER'S DISEASE, UNSPECIFIED Status: Chronic Current Visit: No Qualifiers: Alzheimer's disease onset: early-onset Dementia behavioral disturbance: without behavioral disturbance Qualified Code(s): G30.0 - Alzheimer's disease with early onset; F02.80 - Dementia in other diseases classified elsewhere without behavioral disturbance (5) Parkinson disease SNOMED Code(s): 19904219 Code(s): G20 - PARKINSON'S DISEASE Status: Chronic Current Visit: No - Problem List Review Problem List Initiated/Reviewed/Updated: Yes - My Orders Last 24 Hours: My Active Orders 06/15/20 12:00 Phosphorus #1 [Neutra-Phos] 250 mg PO QID 06/16/20 05:11 CBC WITH AUTO DIFF [HEME] AM COMPREHENSIVE METABOLIC PN,CMP [CHEM] AM MAGNESIUM [CHEM] AM PHOSPHORUS [CHEM] AM - Plan Plan:: Assessment and Plan: 1. Ileus, resolved: - General surgery consulted and performed manual disimpaction yesterday evening. Patient had large maroon-colored bowel movement and 2 more normal colored bowel movements overnight. Per general surgery start colace 100 mg PO qd, digital stimulation q12h and if no BM for 24 hours then give soap marah enema prn. Continue clear liquid diet for 24 hrs then advance to full liquids. 2. GI bleed likely secondary to traumatic manual stool disimpaction: - Hemoglobin is stable this AM. Per general surgery, recommend holding Lovenox and narcotics. Check H/H q12. 3. Covid 19: - Patient has no respiratory symptoms at this time and remained afebrile overnight. Currently on dexamethasone and Remdesivir discontinued as patient on room air. 4. Hypokalemia, resolved. 5. DVT prophylaxis: - SCD's secondary to #2. 6. Past medical history of Alzheimer's disease, Parkinson's disease and hypothyroidism: - Continue home medications.
[2020-06-15] MEDS: Memantine 10 MG Tab PO SCH ×2 (09:51→20:30)
[2020-06-15] MEDS: Docusate Sodium 100 MG Cap PO SCH (09:54)
[2020-06-15] MEDS ORDERED: LORazepam 2 MG/ML SDV IVPUSH ONE (12:56)
[2020-06-15] MEDS: Dexamethasone 10 MG/ML SDV IVPUSH SCH (13:17)
[2020-06-15] MEDS: Phosphorus #1 250 MG Tab PO SCH ×2 (15:36→18:23)
[2020-06-15] MEDS ORDERED: Dextrose 5%-0.45% NaCl 1,000 ML IV SCH (16:00)
--- NOTE | 2020-06-15 19:12 | CR ---
Indication: Hypoxia. COVID positive. Technique: AP portable view of the chest. Comparison: June 11, 2020. Findings: The heart is normal in size. Increased interstitial opacities are identified bilaterally, significantly changed since the previous exam. No pleural effusion or pneumothorax is identified. Impression: new bilateral interstitial opacities bilaterally. Dictated by Inés Yoo MD @ Jun 15 2020 7:09PM Signed by Dr. Inés Yoo @ Jun 15 2020 7:11PM
[2020-06-15] MEDS ORDERED: Albuterol/Ipratropium 3.0-0.5 MG/3 ML Neb Soln NEB PRN (19:30)
[2020-06-15] MEDS ORDERED: Azithromycin 500 MG in Sodium Chloride 0.9% 250 ML IV SCH (20:00)
[2020-06-15] MEDS: Pantoprazole 40 MG in Sodium Chloride 0.9% 10 ML IV SCH ×3 (20:18)
[2020-06-15] MEDS: cefTRIAXone 1 GM in Premix Bag 1 BAG IV SCH (20:19)
[2020-06-15] MEDS: Amitriptyline 10 MG Tab PO SCH (20:29)
[2020-06-15] MEDS: OLANZapine 5 MG Tab PO SCH (20:30)
[2020-06-16] MEDS ORDERED: Furosemide 40 MG/4 ML VIAL IVPUSH ONE (01:22)
[2020-06-16] MEDS: Ketorolac 15 MG/ML SDV IVPUSH PRN ×2 (01:55→07:46)
[2020-06-16] MEDS: Phosphorus #1 250 MG Tab PO SCH (01:56)
[2020-06-16] MEDS: Baclofen 10 MG Tab PO SCH (06:17)
[2020-06-16] MEDS: rOPINIRole 1 MG Tab PO SCH (06:17)
[2020-06-16] MEDS: Carbidopa/Levodopa 25-100 MG Tab PO SCH (06:18)
[2020-06-16] MEDS: Levothyroxine 75 MCG Tab PO SCH (06:18)
[2020-06-16 07:11] LABS: BLOOD UREA NITROGEN,BUN 11 mg/dL (7.0-18.0); CARBON DIOXIDE,CO2 25.7 mmol/L (21.0-32.0); CHLORIDE,CL 107 mmol/L (98-107); GLUCOSE RANDOM 76 mg/dL (74-106); POTASSIUM,K 3.9 mmol/L (3.5-5.1); SODIUM,NA 139 mmol/L (136-145)
[2020-06-16] MEDS ORDERED: Acetaminophen 650 MG in Premix Bag 1 BAG IV PRN (08:08)
[2020-06-16] MEDS ORDERED: Morphine 2 MG/ML SYRINGE IVPUSH ONE (08:10)
[2020-06-16] MEDS ORDERED: Piperacillin/Tazobactam 4.5 GM in Sodium Chloride 0.9% 100 ML IV SCH (08:30)
[2020-06-16] MEDS ORDERED: Enoxaparin 40 MG/0.4 ML Syringe SUBCUT SCH (09:30)
[2020-06-16] MEDS: Memantine 10 MG Tab PO SCH (10:12)
[2020-06-16] MEDS: Docusate Sodium 100 MG Cap PO SCH (10:12)
[2020-06-16] MEDS ORDERED: Levothyroxine 100 MCG Vial IVPUSH SCH (11:30)
[2020-06-16] MEDS ORDERED: Morphine 2 MG/ML SYRINGE IVPUSH PRN (12:15)
[2020-06-16] MEDS ORDERED: LORazepam 2 MG/ML SDV IVPUSH PRN (12:15)
[2020-06-16] MEDS: Dexamethasone 10 MG/ML SDV IVPUSH SCH (12:58)
[2020-06-16] MEDS ORDERED: Scopolamine 1.5 MG Transdermal Patch TRDERM SCH (13:30)
[2020-06-16] MEDS: LORazepam 2 MG/ML SDV IVPUSH PRN ×6 (13:45→23:20)
[2020-06-16] MEDS: Morphine 2 MG/ML SYRINGE IVPUSH PRN ×4 (13:50→21:47)
[2020-06-16] MEDS ORDERED: rOPINIRole 0.5 MG Tab PO SCH (14:00)
--- NOTE | 2020-06-16 15:03 | PCM.PN ---
- General Info Date of Service: 06/16/20 Admission Dx/Problem (Free Text): Admission Diagnosis/Problem Admission Diagnosis/Problem Abdominal pain Subjective Update: PT is a 75 y/o F with significant h/o Alzheimer's dementia and advanced Parkinson's dx. Initially admitted for an Ileus which has now resolved. Was found to be COVID positive since admission but was not yet experiencing respiratory distress and was weaned to room air for the last 2 days. Yesterday afternoon patient became more hypoxic, febrile and repeat chest X-Ray demonstrated new bilateral interstitial infiltrates consistent with COVID 19 pneumonia. Overnight patient has had worsening hypoxia, now requiring 8-10 L oxygen. Has been febrile overnight, unable to tolerate medications orally today. Family was informed as quickly as possible regarding new onset of symptoms. Patient was made comfortable as soon as possible. Functional Status: Reports: Pain Controlled (being controlled with Morphine and ativan this morning since pt is not taking anything by mouth this morning ) - Review of Systems General: Reports: Fever, Weakness. Denies: Appetite HEENT: Reports: No Symptoms Pulmonary: Reports: Shortness of Breath Cardiovascular: Reports: No Symptoms Gastrointestinal: Reports: No Symptoms Genitourinary: Reports: No Symptoms Musculoskeletal: Reports: No Symptoms Skin: Reports: No Symptoms Neurological: Reports: No Symptoms Psychiatric: Reports: No Symptoms - Patient Data Vitals - Most Recent: Last Vital Signs Temp 100 F 06/16/20 13:17 Pulse 99 06/16/20 13:17 Resp 36 H 06/16/20 10:07 BP 102/56 L 06/16/20 09:31 Pulse Ox 96 06/16/20 13:17 Weight - Most Recent: 115 lb I&O - Last 24 Hours: Intake & Output 06/15/20 06/16/20 06/16/20 23:59 06:59 14:59 Intake Total 165 Output Total Balance 165 Lab Results Last 24 Hours: Laboratory Results - last 24 hr 06/15/20 06/15/20 06/15/20 Range/Units 16:14 19:00 23:28 WBC (4.0-11.0) K/uL RBC (4.30-5.90) M/uL Hgb 10.4 L (12.0-16.0) g/dL Hct 31.3 L (36.0-46.0) % MCV (80.0-98.0) fL MCH (27.0-32.0) pg MCHC (31.0-37.0) g/dL RDW Std Deviation (28.0-62.0) fl RDW Coeff of Jordi (11.0-15.0) % Plt Count (150-400) K/uL MPV (7.40-12.00) fL Neut % (Auto) (48.0-80.0) % Lymph % (Auto) (16.0-40.0) % Maverick % (Auto) (0.0-15.0) % Eos % (Auto) (0.0-7.0) % Baso % (Auto) (0.0-1.5) % Neut # (Auto) (1.4-5.7) K/uL Lymph # (Auto) (0.6-2.4) K/uL Maverick # (Auto) (0.0-0.8) K/uL Eos # (Auto) (0.0-0.7) K/uL Baso # (Auto) (0.0-0.1) K/uL Nucleated RBC % /100WBC Nucleated RBCs # K/uL Sodium (136-145) mmol/L Potassium (3.5-5.1) mmol/L Chloride (98-107) mmol/L Carbon Dioxide (21.0-32.0) mmol/L BUN (7.0-18.0) mg/dL Creatinine (0.6-1.0) mg/dL Est Cr Clr Drug Dosing mL/min Estimated GFR (MDRD) ml/min Glucose (74-106) mg/dL POC Glucose 99 105 (60-110) mg/dL Calcium (8.5-10.1) mg/dL Phosphorus (2.6-4.7) mg/dL Magnesium (1.8-2.4) mg/dL Total Bilirubin (0.2-1.0) mg/dL AST (15-37) IU/L ALT (14-63) IU/L Alkaline Phosphatase (46-116) U/L Total Protein (6.4-8.2) g/dL Albumin (3.4-5.0) g/dL Globulin (2.6-4.0) g/dL Albumin/Globulin Ratio (0.9-1.6) 06/16/20 06/16/20 06/16/20 Range/Units 06:13 06:35 06:35 WBC 11.10 H (4.0-11.0) K/uL RBC 3.59 L (4.30-5.90) M/uL Hgb 11.0 L (12.0-16.0) g/dL Hct 32.6 L (36.0-46.0) % MCV 90.8 (80.0-98.0) fL MCH 30.6 (27.0-32.0) pg MCHC 33.7 (31.0-37.0) g/dL RDW Std Deviation 46.8 (28.0-62.0) fl RDW Coeff of Jordi 14 (11.0-15.0) % Plt Count 200 (150-400) K/uL MPV 9.80 (7.40-12.00) fL Neut % (Auto) 89.2 H (48.0-80.0) % Lymph % (Auto) 7.0 L (16.0-40.0) % Maverick % (Auto) 3.7 (0.0-15.0) % Eos % (Auto) 0.0 (0.0-7.0) % Baso % (Auto) 0.1 (0.0-1.5) % Neut # (Auto) 9.9 H (1.4-5.7) K/uL Lymph # (Auto) 0.8 (0.6-2.4) K/uL Maverick # (Auto) 0.4 (0.0-0.8) K/uL Eos # (Auto) 0.0 (0.0-0.7) K/uL Baso # (Auto) 0.0 (0.0-0.1) K/uL Nucleated RBC % 0.0 /100WBC Nucleated RBCs # 0 K/uL Sodium 139 (136-145) mmol/L Potassium 3.9 (3.5-5.1) mmol/L Chloride 107 (98-107) mmol/L Carbon Dioxide 25.7 (21.0-32.0) mmol/L BUN 11 (7.0-18.0) mg/dL Creatinine 0.8 (0.6-1.0) mg/dL Est Cr Clr Drug Dosing 48.50 mL/min Estimated GFR (MDRD) > 60.0 ml/min Glucose 76 (74-106) mg/dL POC Glucose 100 (60-110) mg/dL Calcium 8.1 L (8.5-10.1) mg/dL Phosphorus 2.8 (2.6-4.7) mg/dL Magnesium 2.0 (1.8-2.4) mg/dL Total Bilirubin 0.4 (0.2-1.0) mg/dL AST 50 H (15-37) IU/L ALT 48 (14-63) IU/L Alkaline Phosphatase 123 H (46-116) U/L Total Protein 6.1 L (6.4-8.2) g/dL Albumin 2.5 L (3.4-5.0) g/dL Globulin 3.6 (2.6-4.0) g/dL Albumin/Globulin Ratio 0.7 L (0.9-1.6) Med Orders - Current: Current Medications Albuterol/Ipratropium (Duoneb 3.0-0.5 Mg/3 Ml) 3 ml NEB Q4H PRN PRN Reason: Shortness of Breath Lorazepam (Ativan) 1 mg IVPUSH Q1H PRN PRN Reason: Agitation Last Admin: 06/16/20 13:45 Dose: 1 mg Documented by: Morphine Sulfate (Morphine) 1 mg IVPUSH Q2H PRN PRN Reason: PAIN Last Admin: 06/16/20 13:50 Dose: 1 mg Documented by: Scopolamine (Transderm-Scop) 1.5 mg TRDERM Q72H [facility] Last Admin: 06/16/20 13:51 Dose: 1.5 mg Documented by: Discontinued Medications Acetaminophen (Tylenol Extra Strength) 500 mg PO Q6H PRN PRN Reason: Pain/Fever Last Admin: 06/14/20 05:46 Dose: 500 mg Documented by: Amitriptyline HCl (Elavil) 10 mg PO BEDTIME [facility] Last Admin: 06/15/20 20:29 Dose: Not Given Documented by: Baclofen (Lioresal) 10 mg PO TID [facility] Last Admin: 06/16/20 06:17 Dose: Not Given Documented by: Bisacodyl (Dulcolax) 10 mg RECTAL ONETIME ONE Stop: 06/14/20 16:23 Last Admin: 06/14/20 17:22 Dose: 10 mg Documented by: Carbidopa/Levodopa (Sinemet 25-100 Mg) 2 tab PO TID [facility] Last Admin: 06/16/20 06:18 Dose: Not Given Documented by: Dexamethasone (Dexamethasone) 6 mg PO DAILY [facility] Last Admin: 06/12/20 12:28 Dose: Not Given Documented by: Dexamethasone (Dexamethasone) 6 mg IVPUSH Q24H [facility] Last Admin: 06/16/20 12:58 Dose: 6 mg Documented by: Docusate Sodium (Colace) 100 mg PO ONETIME ONE Stop: 06/13/20 10:54 Last Admin: 06/13/20 11:09 Dose: 100 mg Documented by: Docusate Sodium (Colace) 100 mg PO DAILY [facility] Last Admin: 06/16/20 10:12 Dose: Not Given Documented by: Enoxaparin Sodium (Lovenox) 40 mg SUBCUT Q24H [facility] Last Admin: 06/13/20 20:09 Dose: 40 mg Documented by: Enoxaparin Sodium (Lovenox) 40 mg SUBCUT Q24H [facility] Last Admin: 06/16/20 10:09 Dose: 40 mg Documented by: Furosemide (Lasix) 20 mg IVPUSH NOW ONE Stop: 06/16/20 01:23 [employer] C[employer]STITCH Last Admin: 06/16/20 01:41 [employer] COVER[employer]ITCH Dose: 20 mg Documented by: Glycerin (Sani-Supp Pediatric) 1.5 gm RECTAL ONETIME ONE Stop: 06/12/20 12:31 Last Admin: 06/12/20 12:43 Dose: 1.5 gm Documented by: Glycerin (Sani-Supp Pediatric) 1.5 gm RECTAL ONETIME ONE Stop: 06/14/20 08:11 Last Admin: 06/14/20 08:40 Dose: 1.5 gm Documented by: Hydromorphone HCl (Dilaudid) 0.5 mg IVPUSH ONETIME ONE Stop: 06/11/20 11:50 Last Admin: 06/11/20 12:10 Dose: 0.5 mg Documented by: Sodium Chloride (Normal Saline) 1,000 mls @ 999 mls/hr IV .Bolus ONE Stop: 06/11/20 14:30 Last Admin: 06/11/20 13:36 Dose: 999 mls/hr Documented by: Pantoprazole Sodium 40 mg/ (Sodium Chloride) 10 mls @ 300 mls/hr IV Q24H [facility] Last Admin: 06/15/20 20:18 Dose: 300 mls/hr Documented by: Ceftriaxone Sodium/Dextrose 1 (gm/ Premix) 50 mls @ 100 mls/hr IV Q24H [facility] Last Admin: 06/15/20 20:19 Dose: 100 mls/hr Documented by: Sodium Chloride (Normal Saline) 1,000 mls @ 125 mls/hr IV ASDIRECTED [facility] Stop: 06/12/20 19:29 Dextrose/Sodium Chloride (Dextrose 5%-Normal Saline) 1,000 mls @ 125 mls/hr IV ASDIRECTED [facility] Last Admin: 06/14/20 02:00 Dose: 125 mls/hr Documented by: Potassium Chloride/Sodium Chloride (Normal Saline With 40 Meq Kcl) 1,000 mls @ 250 mls/hr IV ONETIME ONE Stop: 06/14/20 14:29 Last Admin: 06/14/20 12:15 Dose: 250 mls/hr Documented by: Potassium Cl/Dextrose/Lact Ringer's (D5 Lr With 20 Meq Kcl) 1,000 mls @ 100 mls/hr IV ASDIRECTED [facility] Last Admin: 06/14/20 17:20 Dose: 100 mls/hr Documented by: Dextrose/Sodium Chloride (Dextrose 5%-1/2 Ns) 1,000 mls @ 75 mls/hr IV ASDIRECTED [facility] Stop: 06/16/20 05:19 Last Admin: 06/15/20 16:17 Dose: 75 mls/hr Documented by: Remdesivir 200 mg/ Sodium (Chloride) 250 mls @ 250 mls/hr IV ONETIME ONE Stop: 06/15/20 19:27 Last Admin: 06/15/20 21:02 Dose: 250 mls/hr Documented by: Remdesivir 100 mg/ Sodium (Chloride) 100 mls @ 100 mls/hr IV Q24H [facility] Stop: 06/19/20 19:59 Azithromycin 500 mg/ Sodium (Chloride) 250 mls @ 250 mls/hr IV DAILY@1999 [facility] Last Admin: 06/15/20 22:10 Dose: 250 mls/hr Documented by: Acetaminophen 650 mg/ Premix 65 mls @ 400 mls/hr IV ONETIME PRN PRN Reason: Pain Last Admin: 06/16/20 09:23 Dose: 400 mls/hr Documented by: Vancomycin HCl 1 gm/ Sodium (Chloride) 250 mls @ 166 mls/hr IV Q12H [facility] Last Admin: 06/16/20 09:36 Dose: 166 mls/hr Documented by: Piperacillin Sod/Tazobactam (Sod 4.5 gm/ Sodium Chloride) 100 mls @ 200 mls/hr IV Q6H [facility] Last Admin: 06/16/20 08:49 Dose: 200 mls/hr Documented by: Ibuprofen (Motrin) 400 mg PO BID PRN PRN Reason: Pain Iopamidol (Isovue Multipack-370 (76%)) 80 ml IVPUSH ONETIME STA Stop: 06/11/20 11:18 Last Admin: 06/11/20 11:19 Dose: 80 ml Documented by: Ketorolac Tromethamine (Toradol) 15 mg IVPUSH Q4H [facility] Stop: 06/12/20 19:39 Last Admin: 06/12/20 04:32 Dose: 15 mg Documented by: Ketorolac Tromethamine (Toradol) 15 mg IVPUSH Q6H [facility] Last Admin: 06/13/20 16:14 Dose: 15 mg Documented by: Ketorolac Tromethamine (Toradol) 15 mg IVPUSH Q6H PRN PRN Reason: Pain (moderate 4-6) Stop: 06/18/20 16:43 Last Admin: 06/16/20 07:46 Dose: 15 mg Documented by: Levothyroxine Sodium (Levothyroxine) 75 mcg PO [id number] [facility] Last Admin: 06/16/20 06:18 Dose: Not Given Documented by: Levothyroxine Sodium (Levothyroxine) 112.5 mcg PO [id number] [facility] Last Admin: 06/14/20 08:45 Dose: 112.5 mcg Documented by: Levothyroxine Sodium (Synthroid) 37.5 mcg IVPUSH [id number] [facility] Last Admin: 06/16/20 13:02 Dose: 37.5 mcg Documented by: Levothyroxine Sodium (Synthroid) 56.25 mcg IVPUSH [id number] [facility] Lorazepam (Ativan) 1 mg IVPUSH ONETIME ONE Stop: 06/15/20 12:57 Last Admin: 06/15/20 13:16 Dose: 1 mg Documented by: Lorazepam (Ativan) 1 mg IVPUSH Q3H PRN PRN Reason: Agitation Magnesium Citrate (Citrate Of Magnesia) 150 ml PO ONETIME ONE Stop: 06/14/20 10:07 Last Admin: 06/15/20 07:26 Dose: Not Given Documented by: Magnesium Hydroxide (Milk Of Magnesia) 30 ml PO ONETIME ONE Stop: 06/14/20 11:33 Last Admin: 06/14/20 12:31 Dose: 30 ml Documented by: Memantine (Namenda) 10 mg PO BID [facility] Last Admin: 06/16/20 10:12 Dose: Not Given Documented by: Morphine Sulfate (Morphine) 4 mg IVPUSH ONETIME ONE Stop: 06/11/20 09:44 Last Admin: 06/11/20 10:10 Dose: 4 mg Documented by: Morphine Sulfate (Morphine) 1 mg IVPUSH ONETIME ONE Stop: 06/11/20 19:39 Last Admin: 06/11/20 20:55 Dose: 1 mg Documented by: Morphine Sulfate (Morphine) 1 mg IVPUSH ONETIME ONE Stop: 06/16/20 08:11 Last Admin: 06/16/20 08:47 Dose: 1 mg Documented by: Morphine Sulfate (Morphine) 1 mg IVPUSH Q3H PRN PRN Reason: PAIN Last Admin: 06/16/20 12:54 Dose: 1 mg Documented by: Olanzapine (Zyprexa) 5 mg PO BEDTIME [facility] Last Admin: 06/15/20 20:30 Dose: Not Given Documented by: Ondansetron HCl (Zofran) 4 mg IVPUSH ONETIME ONE Stop: 06/11/20 09:44 Last Admin: 06/11/20 10:11 Dose: 4 mg Documented by: Paroxetine HCl (Paxil) 10 mg PO DAILY [facility] Last Admin: 06/16/20 10:12 Dose: Not Given Documented by: Polyethylene Glycol (Miralax) 17 gm PO ONETIME ONE Stop: 06/13/20 13:39 Last Admin: 06/13/20 14:13 Dose: 17 gm Documented by: Ropinirole HCl (Requip) 4 mg PO TID [facility] Last Admin: 06/16/20 06:17 Dose: Not Given Documented by: Ropinirole HCl (Requip) 4 mg PO TID [facility] Senna/Docusate Sodium (Senna Plus) 1 tab PO ONETIME ONE Stop: 06/11/20 20:07 Last Admin: 06/11/20 21:18 Dose: Not Given Documented by: Sodium Chloride (Saline Flush) 10 ml FLUSH ASDIRECTED PRN PRN Reason: Keep Vein Open Last Admin: 06/11/20 10:11 Dose: 10 ml Documented by: Sodium Chloride (Saline Flush) 2.5 ml FLUSH ASDIRECTED PRN PRN Reason: Keep Vein Open Last Admin: 06/11/20 10:11 Dose: 2.5 ml Documented by: Sodium Phosphate (Neutra-Phos) 250 mg PO QID [facility] Stop: 06/16/20 00:01 Last Admin: 06/16/20 01:56 CDT Dose: Not Given Documented by: - Exam Quality Assessment: Supplemental Oxygen General: Mild Distress, Moderate Distress HEENT: Pupils Equal, Pupils Reactive, Mucous Membr. Moist/Pinch Neck: Supple, No JVD. No: Lymphadenopathy Lungs: Decreased Breath Sounds, Crackles, Stridor Cardiovascular: Tachycardia GI/Abdominal Exam: Normal Bowel Sounds, Soft, Non-Tender, No Distention, No Mass. No: Guarding, Rigid, Rebound Extremities: Normal Inspection, No Pedal Edema, Normal Capillary Refill Peripheral Pulses: 2+: Dorsalis Pedis (L), Dorsalis Pedis (R) Skin: Warm, Dry, Intact Neurological: Other (unable to assess) Psy/Mental Status: Anxious (give ativan to help with anxiety and agitation/ morphine for pain ), Other (unable to assess) Sepsis Event Note - Evaluation Sepsis Screening Result: Sepsis Risk - Focused Exam Vital Signs: Vital Signs Temp Pulse Resp BP BP Pulse Ox 06/16/20 13:17 100 F 99 96 06/16/20 10:07 103 F H 91 36 H 95 06/16/20 10:06 95 06/16/20 09:31 103 F H 113 H 38 H 102/56 L 90 L 06/16/20 07:44 100.7 F H 107 H 26 H 105/58 L 92 L 06/16/20 04:00 97.8 F 88 24 H 109/51 L 92 L - Problem List & Annotations (1) COVID-19 SNOMED Code(s): 259293220 Code(s): U07.1 - COVID-19 Status: Acute Current Visit: Yes (2) Acute cystitis SNOMED Code(s): 47897811 Code(s): N30.00 - ACUTE CYSTITIS WITHOUT HEMATURIA Status: Acute Current Visit: Yes - Problem List Review Problem List Initiated/Reviewed/Updated: Yes - My Orders Last 24 Hours: My Active Orders 06/16/20 11:57 Resuscitation Status Stat 06/16/20 13:17 LORazepam [Ativan] 1 mg IVPUSH Q1H PRN Morphine 1 mg IVPUSH Q2H PRN 06/16/20 13:30 Scopolamine [Transderm-Scop] 1.5 mg TRDERM Q72H - Assessment Assessment:: 75 y/o F with PMHx of Alzhiemer's and Parkinsons. Ileus ahs resolved, is COVID positive and now is febrile with leukocytisis now requiring oxygen support. 1. COVID 19: given dexamethasone, Remdesivir, broadened antibiotics prior to di scussing with family. Pt was prev DNR/DNI. Quickly spoke with grand daughter, daughter and to confirm changing to Comfort care measures to ensure patient can be made comfortable as she has been febrile, uncomfortable this morning. Was started on BIPAP until all wishes were confirmed by . At this point will stop all treatment and only provide patient with comfort measures. Currently will start to wean on oxygen, giving Ativan for agitation and morphine for pain PRN. - Plan Plan:: Assessment and Plan: 1. Ileus, resolved: - General surgery consulted and performed manual disimpaction yesterday evening. Patient had large maroon-colored bowel movement and 2 more normal colored bowel movements overnight. Per general surgery start colace 100 mg PO qd, digital stimulation q12h and if no BM for 24 hours then give soap marah enema prn. Continue clear liquid diet for 24 hrs then advance to full liquids. 2. GI bleed likely secondary to traumatic manual stool disimpaction: - Hemoglobin is stable this AM. Per general surgery, recommend holding Lovenox and narcotics. Check H/H q12. 3. Covid 19: - Patient has no respiratory symptoms at this time and remained afebrile overnight. Currently on dexamethasone and Remdesivir discontinued as patient on room air. 4. Hypokalemia, resolved. 5. DVT prophylaxis: - SCD's secondary to #2. 6. Past medical history of Alzheimer's disease, Parkinson's disease and hypothyroidism: - Continue home medications.
[2020-06-16] MEDS ORDERED: REMDESIVIR (EUA) 100 MG in Sodium Chloride 0.9% 100 ML IV SCH (19:00)
[2020-06-17] MEDS: Morphine 2 MG/ML SYRINGE IVPUSH PRN ×4 (00:45→10:08)
[2020-06-17] MEDS: LORazepam 2 MG/ML SDV IVPUSH PRN ×3 (02:36→08:20)
[2020-06-17] MEDS ORDERED: Levothyroxine 100 MCG Vial IVPUSH SCH (07:00)
[2020-06-17 08:23] VITALS: BP 95/52; PULSE 83
[2020-06-17] MEDS ORDERED: Morphine 10 MG/0.5 ML Oral Syringe SL PRN (09:31)
[2020-06-17] MEDS ORDERED: LORazepam Conc Solution 2 MG/ML 30 ML Bottle SL PRN (09:31)
--- NOTE | 2020-06-17 10:05 | PCM.DCSUM1 ---
Discharge Summary - Hospital Course Brief History: 75-year-old female Limited history due to Parkinson's disease and Alzheimer's. Patient's reports that she has a previous history of struggling with constipation. On wednesday she had a large bowel movement, then developed a fever and appeared to be in pain. States that she does well usually with her Alzheimers and Parkisons with the support of their care givers. States she has a good appetite and has not been eating or drinking in the last few days. Denies any sick contacts or recet trave Diagnosis: Stroke: No Modified Pullman Scale: No Symptoms at All Modified Pullman Scale Score: 0 - Discharge Data Discharge Date: 06/17/20 Discharge Disposition: DC/Tfer to Hospice - Home 50 Condition: Fair - Referral to Home Health Primary Care Physician: Mark Vaughan MD - Patient Summary/Data Consults: Consultations 06/14/20 16:25 Consult to Physician [CONS] Routine 06/16/20 13:55 Consult to Spiritual Care [CONS] Routine 06/16/20 17:37 Consult to Hospice [CONS] Routine Hospital Course: Admitting Diagnoses Ileus COVID + Discharge Diagnoses: Ileus- resolved COVID + Acute hypoxic respiratory failure Palliative Care Hospice other [facility] 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 COVID positive note don admission, but was initially symptoms free. Wednesday she developed dyspnea with hypoxia requiring upwards of 10 L. was transferred to [place], but is now home. Family is requesting Hospice and palliative care at home. Johana will be discharged today with scopalamine patch, Morphine and Ativan SL for air hunger and pain/agitation. Discussed with family the need for continued infection risk with family members who are not COVID positive. Hand hygiene and mask wearing then quarantining per state recommendations. Daughter verbalized understanding. EMS to bring patient home today. Hospice updated on plan. - Patient Instructions Diet: Regular Diet as Tolerated Other/Special Instructions: Hospice to admit at home - Discharge Plan *PRESCRIPTION DRUG MONITORING PROGRAM REVIEWED*: Not Applicable *COPY OF PRESCRIPTION DRUG MONITORING REPORT IN PATIENT SUSIE: Not Applicable Prescriptions/Med Rec: Hyoscyamine [Hyomax-SL] 0.125 mg SL Q4H PRN #30 tab.sl PRN Reason: secretions Home Medications: Home Meds Hyoscyamine [Hyomax-SL] 0.125 mg SL Q4H PRN #30 tab.sl 06/17/20 [Rx] LORazepam [Ativan] 1 mg SL Q4H PRN ml 06/17/20 [Rx] Morphine [Morphine 20 MG/ML Soln] 5 mg SL Q30M PRN bottle 06/17/20 [Rx] Oxygen Therapy Mode: Room Air Patient Handouts: COVID-19 Frequently Asked Questions, Morphine oral solution, COVID-19: How to Protect Yourself and Others - CDC, Infection Prevention in the Home, Hyoscyamine sublingual tablet Referrals: Mark Vaughan MD [Primary Care Provider] - 07/01/20 10:45 am (This appoinntment can be cancelled or rescheduled as needed.) - Discharge Summary/Plan Comment DC Time >30 min.: Yes (Arranging Hospice and transport home. ) - Patient Data Vitals - Most Recent: Last Vital Signs Temp 99.3 F 06/17/20 08:22 Pulse 83 06/17/20 08:22 Resp 18 06/17/20 08:22 BP 95/52 L 06/17/20 08:22 Pulse Ox 84 L 06/17/20 08:22 Weight - Most Recent: 52.163 kg I&O - Last 24 hours: Intake & Output 06/16/20 06/17/20 06/17/20 22:59 06:59 14:59 Intake Total 0 Output Total 250 Balance -250 Med Orders - Current: Current Medications Albuterol/Ipratropium (Duoneb 3.0-0.5 Mg/3 Ml) 3 ml NEB Q4H PRN PRN Reason: Shortness of Breath Lorazepam (Ativan) 1 mg IVPUSH Q1H PRN PRN Reason: Agitation Last Admin: 06/17/20 08:20 Dose: 1 mg Documented by: Lorazepam (Ativan) 1 mg SL Q4H PRN PRN Reason: anxiety,dyspnea,agitation Morphine Sulfate (Morphine) 1 mg IVPUSH Q2H PRN PRN Reason: PAIN Last Admin: 06/17/20 06:35 Dose: 1 mg Documented by: Morphine Sulfate (Morphine 10 Mg/0.5 Ml Oral Syringe) 5 mg SL Q30M PRN PRN Reason: pain,agitation,sob Scopolamine (Transderm-Scop) 1.5 mg TRDERM Q72H [facility] Last Admin: 06/16/20 13:51 Dose: 1.5 mg Documented by: Discontinued Medications Acetaminophen (Tylenol Extra Strength) 500 mg PO Q6H PRN PRN Reason: Pain/Fever Last Admin: 06/14/20 05:46 Dose: 500 mg Documented by: Amitriptyline HCl (Elavil) 10 mg PO BEDTIME [facility] Last Admin: 06/15/20 20:29 Dose: Not Given Documented by: Baclofen (Lioresal) 10 mg PO TID [facility] Last Admin: 06/16/20 06:17 Dose: Not Given Documented by: Bisacodyl (Dulcolax) 10 mg RECTAL ONETIME ONE Stop: 06/14/20 16:23 Last Admin: 06/14/20 17:22 Dose: 10 mg Documented by: Carbidopa/Levodopa (Sinemet 25-100 Mg) 2 tab PO TID [facility] Last Admin: 06/16/20 06:18 Dose: Not Given Documented by: Dexamethasone (Dexamethasone) 6 mg PO DAILY [facility] Last Admin: 06/12/20 12:28 Dose: Not Given Documented by: Dexamethasone (Dexamethasone) 6 mg IVPUSH Q24H [facility] Last Admin: 06/16/20 12:58 Dose: 6 mg Documented by: Docusate Sodium (Colace) 100 mg PO ONETIME ONE Stop: 06/13/20 10:54 Last Admin: 06/13/20 11:09 Dose: 100 mg Documented by: Docusate Sodium (Colace) 100 mg PO DAILY [facility] Last Admin: 06/16/20 10:12 Dose: Not Given Documented by: Enoxaparin Sodium (Lovenox) 40 mg SUBCUT Q24H [facility] Last Admin: 06/13/20 20:09 Dose: 40 mg Documented by: Enoxaparin Sodium (Lovenox) 40 mg SUBCUT Q24H [facility] Last Admin: 06/16/20 10:09 Dose: 40 mg Documented by: Furosemide (Lasix) 20 mg IVPUSH NOW ONE Stop: 06/16/20 01:23 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 Last Admin: 06/16/20 01:41 [employer]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: 20 mg Documented by: Glycerin (Sani-Supp Pediatric) 1.5 gm RECTAL ONETIME ONE Stop: 06/12/20 12:31 Last Admin: 06/12/20 12:43 Dose: 1.5 gm Documented by: Glycerin (Sani-Supp Pediatric) 1.5 gm RECTAL ONETIME ONE Stop: 06/14/20 08:11 Last Admin: 06/14/20 08:40 Dose: 1.5 gm Documented by: Hydromorphone HCl (Dilaudid) 0.5 mg IVPUSH ONETIME ONE Stop: 06/11/20 11:50 Last Admin: 06/11/20 12:10 Dose: 0.5 mg Documented by: Sodium Chloride (Normal Saline) 1,000 mls @ 999 mls/hr IV .Bolus ONE Stop: 06/11/20 14:30 Last Admin: 06/11/20 13:36 Dose: 999 mls/hr Documented by: Pantoprazole Sodium 40 mg/ (Sodium Chloride) 10 mls @ 300 mls/hr IV Q24H [facility] Last Admin: 06/15/20 20:18 Dose: 300 mls/hr Documented by: Ceftriaxone Sodium/Dextrose 1 (gm/ Premix) 50 mls @ 100 mls/hr IV Q24H [facility] Last Admin: 06/15/20 20:19 Dose: 100 mls/hr Documented by: Sodium Chloride (Normal Saline) 1,000 mls @ 125 mls/hr IV ASDIRECTED [facility] Stop: 06/12/20 19:29 Dextrose/Sodium Chloride (Dextrose 5%-Normal Saline) 1,000 mls @ 125 mls/hr IV ASDIRECTED [facility] Last Admin: 06/14/20 02:00 Dose: 125 mls/hr Documented by: Potassium Chloride/Sodium Chloride (Normal Saline With 40 Meq Kcl) 1,000 mls @ 250 mls/hr IV ONETIME ONE Stop: 06/14/20 14:29 Last Admin: 06/14/20 12:15 Dose: 250 mls/hr Documented by: Potassium Cl/Dextrose/Lact Ringer's (D5 Lr With 20 Meq Kcl) 1,000 mls @ 100 mls/hr IV ASDIRECTED [facility] Last Admin: 06/14/20 17:20 Dose: 100 mls/hr Documented by: Dextrose/Sodium Chloride (Dextrose 5%-1/2 Ns) 1,000 mls @ 75 mls/hr IV ASDIRECTED [facility] Stop: 06/16/20 05:19 Last Admin: 06/15/20 16:17 Dose: 75 mls/hr Documented by: Remdesivir 200 mg/ Sodium (Chloride) 250 mls @ 250 mls/hr IV ONETIME ONE Stop: 06/15/20 19:27 Last Admin: 06/15/20 21:02 Dose: 250 mls/hr Documented by: Remdesivir 100 mg/ Sodium (Chloride) 100 mls @ 100 mls/hr IV Q24H [facility] Stop: 06/19/20 19:59 Azithromycin 500 mg/ Sodium (Chloride) 250 mls @ 250 mls/hr IV DAILY@1999 [facility] Last Admin: 06/15/20 22:10 Dose: 250 mls/hr Documented by: Acetaminophen 650 mg/ Premix 65 mls @ 400 mls/hr IV ONETIME PRN PRN Reason: Pain Last Admin: 06/16/20 09:23 Dose: 400 mls/hr Documented by: Vancomycin HCl 1 gm/ Sodium (Chloride) 250 mls @ 166 mls/hr IV Q12H [facility] Last Admin: 06/16/20 09:36 Dose: 166 mls/hr Documented by: Piperacillin Sod/Tazobactam (Sod 4.5 gm/ Sodium Chloride) 100 mls @ 200 mls/hr IV Q6H [facility] Last Admin: 06/16/20 08:49 Dose: 200 mls/hr Documented by: Ibuprofen (Motrin) 400 mg PO BID PRN PRN Reason: Pain Iopamidol (Isovue Multipack-370 (76%)) 80 ml IVPUSH ONETIME STA Stop: 06/11/20 11:18 Last Admin: 06/11/20 11:19 Dose: 80 ml Documented by: Ketorolac Tromethamine (Toradol) 15 mg IVPUSH Q4H [facility] Stop: 06/12/20 19:39 Last Admin: 06/12/20 04:32 Dose: 15 mg Documented by: Ketorolac Tromethamine (Toradol) 15 mg IVPUSH Q6H [facility] Last Admin: 06/13/20 16:14 Dose: 15 mg Documented by: Ketorolac Tromethamine (Toradol) 15 mg IVPUSH Q6H PRN PRN Reason: Pain (moderate 4-6) Stop: 06/18/20 16:43 Last Admin: 06/16/20 07:46 Dose: 15 mg Documented by: Levothyroxine Sodium (Levothyroxine) 75 mcg PO SuTuThSa@0700 [facility] Last Admin: 06/16/20 06:18 Dose: Not Given Documented by: Levothyroxine Sodium (Levothyroxine) 112.5 mcg PO MoWeFr@0700 [facility] Last Admin: 06/14/20 08:45 Dose: 112.5 mcg Documented by: Levothyroxine Sodium (Synthroid) 37.5 mcg IVPUSH SuTuThSa@0700 [facility] Last Admin: 06/16/20 13:02 Dose: 37.5 mcg Documented by: Levothyroxine Sodium (Synthroid) 56.25 mcg IVPUSH MoWeFr@0700 [facility] Lorazepam (Ativan) 1 mg IVPUSH ONETIME ONE Stop: 06/15/20 12:57 Last Admin: 06/15/20 13:16 Dose: 1 mg Documented by: Lorazepam (Ativan) 1 mg IVPUSH Q3H PRN PRN Reason: Agitation Magnesium Citrate (Citrate Of Magnesia) 150 ml PO ONETIME ONE Stop: 06/14/20 10:07 Last Admin: 06/15/20 07:26 Dose: Not Given Documented by: Magnesium Hydroxide (Milk Of Magnesia) 30 ml PO ONETIME ONE Stop: 06/14/20 11:33 Last Admin: 06/14/20 12:31 Dose: 30 ml Documented by: Memantine (Namenda) 10 mg PO BID [facility] Last Admin: 06/16/20 10:12 Dose: Not Given Documented by: Morphine Sulfate (Morphine) 4 mg IVPUSH ONETIME ONE Stop: 06/11/20 09:44 Last Admin: 06/11/20 10:10 Dose: 4 mg Documented by: Morphine Sulfate (Morphine) 1 mg IVPUSH ONETIME ONE Stop: 06/11/20 19:39 Last Admin: 06/11/20 20:55 Dose: 1 mg Documented by: Morphine Sulfate (Morphine) 1 mg IVPUSH ONETIME ONE Stop: 06/16/20 08:11 Last Admin: 06/16/20 08:47 Dose: 1 mg Documented by: Morphine Sulfate (Morphine) 1 mg IVPUSH Q3H PRN PRN Reason: PAIN Last Admin: 06/16/20 12:54 Dose: 1 mg Documented by: Olanzapine (Zyprexa) 5 mg PO BEDTIME [facility] Last Admin: 06/15/20 20:30 Dose: Not Given Documented by: Ondansetron HCl (Zofran) 4 mg IVPUSH ONETIME ONE Stop: 06/11/20 09:44 Last Admin: 06/11/20 10:11 Dose: 4 mg Documented by: Paroxetine HCl (Paxil) 10 mg PO DAILY [facility] Last Admin: 06/16/20 10:12 Dose: Not Given Documented by: Polyethylene Glycol (Miralax) 17 gm PO ONETIME ONE Stop: 06/13/20 13:39 Last Admin: 06/13/20 14:13 Dose: 17 gm Documented by: Ropinirole HCl (Requip) 4 mg PO TID [facility] Last Admin: 06/16/20 06:17 Dose: Not Given Documented by: Ropinirole HCl (Requip) 4 mg PO TID [facility] Senna/Docusate Sodium (Senna Plus) 1 tab PO ONETIME ONE Stop: 06/11/20 20:07 Last Admin: 06/11/20 21:18 Dose: Not Given Documented by: Sodium Chloride (Saline Flush) 10 ml FLUSH ASDIRECTED PRN PRN Reason: Keep Vein Open Last Admin: 06/11/20 10:11 Dose: 10 ml Documented by: Sodium Chloride (Saline Flush) 2.5 ml FLUSH ASDIRECTED PRN PRN Reason: Keep Vein Open Last Admin: 06/11/20 10:11 Dose: 2.5 ml Documented by: Sodium Phosphate (Neutra-Phos) 250 mg PO QID [facility] Stop: 06/16/20 00:01 Last Admin: 06/16/20 01:56 CDT Dose: Not Given Documented by:
== END 2020-06-17 11:50 | disposition hospice, home (50) | DRG 177 ==
LOC: MW.ED 09:29 → MW.MS 15:21
PROVIDERS: ADMIT Student in an Organized Health Care Education/Training Program; ATTEND Student in an Organized Health Care Education/Training Program
PROC: XW13325 Transfusion of Convalescent Plasma (Nonautologous) into Peripheral Vein, Percutaneous Approach, New Technology Group 5 (ICD-10-PCS; principal; 2020-06-15)
PROC: 5A09457 Assistance with Respiratory Ventilation, 24-96 Consecutive Hours, Continuous Positive Airway Pressure (ICD-10-PCS; 2020-06-16)
DX: U07.1 COVID-19 (principal); J96.01 Acute respiratory failure with hypoxia; K56.7 Ileus, unspecified; N30.00 Acute cystitis without hematuria; K92.2 Gastrointestinal hemorrhage, unspecified; Z51.5 Encounter for palliative care; Z66 Do not resuscitate; H54.7 Unspecified visual loss; E78.00 Pure hypercholesterolemia, unspecified; K59.09 Other constipation; K21.9 Gastro-esophageal reflux disease without esophagitis; R32 Unspecified urinary incontinence; G30.9 Alzheimer's disease, unspecified; F02.80 Dementia in other diseases classified elsewhere, unspecified severity, without behavioral disturbance, psychotic disturbance, mood disturbance, and anxiety; G20 Parkinson's disease; E03.9 Hypothyroidism, unspecified; Z99.81 Dependence on supplemental oxygen; K59.00 Constipation, unspecified; E87.6 Hypokalemia; E16.2 Hypoglycemia, unspecified; Z79.890 Hormone replacement therapy; Z79.899 Other long term (current) drug therapy; F41.9 Anxiety disorder, unspecified
CPT/HCPCS: 36415; 71045; 74177; 80053; 81001; 83605; 83690; 85025; 96361; 96374; 96375; 99285; J1170; J2270; J2405; J7030; Q9967; U0002; 74018; 74018-26; 82962; 83735; 84100; 84132; 85014; 85018; 94660; 99284; A9270-GY; C9113; J0131; J0456; J0696; J1100; J1650; J1885; J1940; J2060; J2543; J3370; J3480; J7042; J7050